=== PATIENT | female | born 1945 | race Caucasian/White ===

== ENCOUNTER 2020-03-14 18:26 | Emergency (ER) | payer MEDICARE, MEDICAID ==
[~2020-03-14] VITALS: Ht 157.4 cm; Wt 90.0 kg
[~2020-03-14 18:26] MED LIST: AMLO5TAB2 PO; ASPI-933 PO; CITA20TA4 PO; FISH1CAP15 PO; FURO40TA4 PO; LISI20TA PO; METO25TA2 PO; NAPR-243 PO; NIA500ERT PO; POTA20PA3 PO; PRAV80TA PO; TRAM50TA2 PO
[2020-03-14] MEDS ORDERED: NS IV 1000 ML 1,000 ML IV SCH (19:00)
--- NOTE | 2020-03-14 19:00 | NUR ---
Patient reports to RN and she has not taken her prescribed meds in like 7 yrs. "Don't need them!"
[2020-03-14 19:10] LABS: BASOPHILS # (AUTO) 0.1 10^3/uL (0.0-0.1); BASOPHILS % (AUTO) 0 % (0-10); EOSINOPHILS # (AUTO) 0.1 10^3/uL (0.0-0.3); EOSINOPHILS % (AUTO) 1 % (0-10); HEMATOCRIT 42 % (35-52); HEMOGLOBIN 13.5 G/DL (11.5-16.0); LYMPHOCYTES # (AUTO) 2.1 X 10^3 (1.0-4.0); LYMPHOCYTES % (AUTO) 16 % (12-44); MEAN CORPUSCULAR HEMOGLOBIN 28 PG (25-34); MEAN CORPUSCULAR HGB CONC 33 G/DL (32-36); MEAN CORPUSCULAR VOLUME 88 FL (80-99); MEAN PLATELET VOLUME 11.3 FL (7.4-10.4); MONOCYTES # (AUTO) 0.9 X 10^3 (0.0-1.0); MONOCYTES % (AUTO) 7 % (0-12); NEUTROPHILS # (AUTO) 9.3 X 10^3 (1.8-7.8); NEUTROPHILS % (AUTO) 74 % (42-75); PLATELET COUNT 427 10^3/uL (130-400); RED CELL DISTRIBUTION WIDTH 13.2 % (10.0-14.5); WHITE BLOOD COUNT 12.5 10^3/uL (4.3-11.0)
[2020-03-14 19:23] LABS: CARBON DIOXIDE 26 MMOL/L (21-32); CHLORIDE 95 MMOL/L (98-107); POTASSIUM 3.7 MMOL/L (3.6-5.0); SODIUM 134 MMOL/L (135-145)
[2020-03-14 19:24] LABS: ALANINE AMINOTRANSFERASE 10 U/L (0-55); ALBUMIN 3.5 GM/DL (3.2-4.5); ALKALINE PHOSPHATASE 127 U/L (40-136); BILIRUBIN,TOTAL 0.3 MG/DL (0.1-1.0); BUN/CREATININE RATIO 12; CALCIUM 9.2 MG/DL (8.5-10.1); CREATININE SERUM 0.65 MG/DL (0.60-1.30); GFR ESTIMATED > 60; GLUCOSE 123 MG/DL (70-105); LIPASE 13 U/L (8-78); TOTAL PROTEIN 7.3 GM/DL (6.4-8.2)
[2020-03-14 19:52] LABS: BACTERIA,URINE FEW /HPF; BILIRUBIN,URINE 1+ (NEGATIVE); CLARITY,URINE SL CLOUDY; COLOR,URINE YELLOW; GLUCOSE, URINE (UA) NEGATIVE (NEGATIVE); KETONES,URINE NEGATIVE (NEGATIVE); LEUKOCYTE ESTERASE ,URINE 1+ (NEGATIVE); NITRITE,URINE NEGATIVE (NEGATIVE); PROTEIN,URINE NEGATIVE (NEGATIVE); RBC,URINE 0-2 /HPF
[2020-03-14] MEDS ORDERED: HYOS0.1283 SL (20:02)
[2020-03-14] MEDS ORDERED: ONDA4TAB11 PO (20:02)
--- NOTE | 2020-03-14 20:03 | ED GI ---
General Chief Complaint: Abdominal/GI Problems Stated Complaint: ABD PAIN,DIARRHEA Nursing Triage Note: Pt presents to ED ambulatory reporting 3 week hx of abd pain with diarrhea that has not been evaluated yet r/t to her loss of a daughter. Pt states with trying to eat it makes dry heaves. Pt has increased belching and flatus. Call to her provider at 1600 today and advised to go to ER she states. Sepsis Screen: No Definite Risk Source of Information: Patient Exam Limitations: No Limitations History of Present Illness Date Seen by Provider: Mar 14, 2020 Time Seen by Provider: 18:40 Initial Comments Patient presents with intermittent abdominal cramping and loose stool daily for the past 3 weeks. States that her daughter this summer. Poor appetite intermittent nausea and dry heaves. Has not seen her PCP, but called at the end of the day and was advised to come to the ER. Denies weight loss. Also admits that she has not taken any of her medications for 7 years. Allergies and Home Medications Allergies Coded Allergies: No Known Drug Allergies (Verified Allergy, Unknown, 12/22/07) Home Medications Amlodipine Besylate 5 Mg Tablet, 5 MG PO DAILY, (Reported) Aspirin 81 Mg Tablet.dr, 81 MG PO DAILY, (Reported) Citalopram Hydrobromide 20 Mg Tablet, 20 MG PO DAILY, (Reported) Fish Oil/Dha/Epa 1 Each Capsule, 1 EACH PO BID, (Reported) Furosemide 40 Mg Tablet, 1 EACH PO MON-TUE-TUE PRN, (Reported) Hyoscyamine Sulfate 0.125 Mg Tab.subl, 0.125 MG SL Q4H Prescribed by: ALYSSA HUYNH on 03/14/202001 Lisinopril 20 Mg Tablet, 20 MG PO DAILY, (Reported) Metoprolol Tartrate 25 Mg Tablet, 1 TAB PO BID, (Reported) Naproxen 500 Mg Tablet, 1 EACH PO BID, (Reported) Niacin 500 Mg Tablet.sa, 1,500 MG PO DAILY, (Reported) 3 CAPS DAILY Ondansetron 4 Mg Tab.rapdis, 4 MG PO Q6H PRN for NAUSEA/VOMITING Prescribed by: ALYSSA HUYNH on 03/14/202001 Potassium Chloride 20 Meq Packet, 20 MEQ PO MON-TUE-TUE PRN, (Reported) Pravastatin Sodium 80 Mg Tablet, 80 MG PO DAILY, (Reported) Tramadol Hcl 50 Mg Tablet, 50 MG PO DAILY PRN, (Reported) Patient Home Medication List Home Medication List Reviewed: Yes Review of Systems Review of Systems Constitutional: No dizziness, No fever; malaise; No weakness Respiratory: Denies Cough, Denies Shortness of Air Cardiovascular: Denies Chest Pain, Denies Edema, Denies Syncope Gastrointestinal: See HPI, Abdominal Pain; Denies Constipated; Diarrhea (1 x per day), Nausea; Denies Poor Fluid Intake; Vomiting (dry heaves only) Genitourinary: Denies Burning, Denies Discharge, Denies Frequency, Denies Flank Pain, Denies Hematuria, Denies Pain, Denies Urgency Musculoskeletal: No back pain, No joint pain Psychiatric/Neurological: Denies Anxiety; Depressed; Denies Emotional Problems; Other (greief and sadness since her daughter ) Past Aabmxhv-Ntxchb-Orkwym Hx Past Med/Social Hx: Reviewed Nursing Past Med/Soc Hx Patient Social History Alcohol Use: Denies Use Recreational Drug Use: No Smoking Status: Never a Smoker Recent Foreign Travel: No Contact w/Someone Who Travel: No Recent Infectious Disease Expo: No Recent Hopitalizations: No Physical Abuse: No Sexual Abuse: No Mistreated: No Fear: No Seasonal Allergies Seasonal Allergies: No Past Medical History Surgeries: Yes (each knee arthroscopy, L total shoulder replacement) CABG, Orthopedic Respiratory: Yes Asthma Cardiac: Yes (pt stopped all meds 7 yrs ago) Coronary Artery Disease, Heart Attack, Hypertension Neurological: No Reproductive Disorders: Yes Sexually Transmitted Disease: No Genitourinary: No Gastrointestinal: No Musculoskeletal: Yes Arthritis Endocrine: No HEENT: No Cancer: Yes Kidney Did You Recieve Any Treatments: Yes What Type of Treatment Did You: Surgical Intervention "kidney cancer froze off" Psychosocial: No Blood Disorders: No Physical Exam Vital Signs Vital Signs - First Documented 03/14/20 18:35 Temp 36.7 Pulse 101 Resp 21 B/P (MAP) 176/87 (116) Pulse Ox 93 O2 Delivery Room Air Capillary Refill : Less Than 3 Seconds Height/Weight/BMI Height: 5'3.00" Weight: 211lbs. 0.0oz. 95.368251xl; 36.00 BMI Method: General Appearance: WD/WN, no apparent distress Respiratory: chest non-tender, lungs clear Cardiovascular: regular rate, rhythm, no edema, no gallop, no JVD Gastrointestinal: non tender, soft, no pulsatile mass; No distended, No guarding, No rebound; tenderness (mild and diffuse); No hernia, No mass Extremities: non-tender, no pedal edema Neurologic/Psychiatric: no motor/sensory deficits, alert, normal mood/affect Skin: normal color, warm/dry Progress/Results/Core Measures Results/Orders Lab Results Laboratory Tests Test 03/14/20 18:40 03/14/20 19:41 Range/Units White Blood Count 12.5 H 4.3-11.0 10^3/uL Red Blood Count 4.74 4.35-5.85 10^6/uL Hemoglobin 13.5 11.5-16.0 G/DL Hematocrit 42 35-52 % Mean Corpuscular Volume 88 80-99 FL Mean Corpuscular Hemoglobin 28 25-34 PG Mean Corpuscular Hemoglobin Concent 33 32-36 G/DL Red Cell Distribution Width 13.2 10.0-14.5 % Platelet Count 427 H 130-400 10^3/uL Mean Platelet Volume 11.3 H 7.4-10.4 FL Neutrophils (%) (Auto) 74 42-75 % Lymphocytes (%) (Auto) 16 12-44 % Monocytes (%) (Auto) 7 0-12 % Eosinophils (%) (Auto) 1 0-10 % Basophils (%) (Auto) 0 0-10 % Neutrophils # (Auto) 9.3 H 1.8-7.8 X 10^3 Lymphocytes # (Auto) 2.1 1.0-4.0 X 10^3 Monocytes # (Auto) 0.9 0.0-1.0 X 10^3 Eosinophils # (Auto) 0.1 0.0-0.3 10^3/uL Basophils # (Auto) 0.1 0.0-0.1 10^3/uL Sodium Level 134 L 135-145 MMOL/L Potassium Level 3.7 3.6-5.0 MMOL/L Chloride Level 95 L 98-107 MMOL/L Carbon Dioxide Level 26 21-32 MMOL/L Anion Gap 13 5-14 MMOL/L Blood Urea Nitrogen 8 7-18 MG/DL Creatinine 0.65 0.60-1.30 MG/DL Estimat Glomerular Filtration Rate > 60 BUN/Creatinine Ratio 12 Glucose Level 123 H 70-105 MG/DL Calcium Level 9.2 8.5-10.1 MG/DL Corrected Calcium 9.6 8.5-10.1 MG/DL Total Bilirubin 0.3 0.1-1.0 MG/DL Aspartate Amino Transf (AST/SGOT) 13 5-34 U/L Alanine Aminotransferase (ALT/SGPT) 10 0-55 U/L Alkaline Phosphatase 127 40-136 U/L Total Protein 7.3 6.4-8.2 GM/DL Albumin 3.5 3.2-4.5 GM/DL Lipase 13 8-78 U/L Urine Color YELLOW Urine Clarity SL CLOUDY Urine pH 6.0 5-9 Urine Specific [place] >1.030 1.016-1.022 Urine Protein NEGATIVE NEGATIVE Urine Glucose (UA) NEGATIVE NEGATIVE Urine Ketones NEGATIVE NEGATIVE Urine Nitrite NEGATIVE NEGATIVE Urine Bilirubin 1+ H NEGATIVE Urine Urobilinogen 1.0 < = 1.0 MG/DL Urine Leukocyte Esterase 1+ H NEGATIVE Urine RBC (Auto) TRACE H NEGATIVE Urine RBC 0-2 /HPF Urine WBC 10-25 H /HPF Urine Squamous Epithelial Cells 10-25 H /HPF Urine Crystals NONE /LPF Urine Bacteria FEW H /HPF Urine Casts NONE /LPF Urine Mucus MODERATE H /LPF Urine Culture Indicated YES My Orders Orders - ROVENSTINEALYSSA L DO Ed Iv/Invasive Line Start (03/14/20 19:00) Cbc With Automated Diff (03/14/20 19:00) Comprehensive Metabolic Panel (03/14/20 19:00) Lipase (03/14/20 19:00) Urinalysis (03/14/20 19:00) Abdomen Flat & Upright/Decub (03/14/20 19:00) Ns Iv 1000 Ml (Sodium Chloride 0.9%) (03/14/20 19:00) Urine Culture (03/14/20 19:41) Vital Signs/I&O 03/14/20 18:35 Temp 36.7 Pulse 101 Resp 21 B/P (MAP) 176/87 (116) Pulse Ox 93 O2 Delivery Room Air Blood Pressure Mean: 116 Diagnostic Imaging Diagonstic Imaging: Xray Plain Films/CT/US/NM/MRI: abdomen Comments INDICATION: Diarrhea, three weeks history. Pain. EXAMINATION: Abdomen. FINDINGS: The bowel gas pattern is unremarkable. There is prominence of the right hepatic lobe extending below the iliac crest. This may be hepatomegaly or a prominent Arvind's lobe. There is no abnormal fecal loading. No pneumatosis or free air identified. IMPRESSION: Prominence of the right hepatic lobe. Unobstructed and nonacute appearing bowel gas pattern. Dictated on workstation # [id number] Dict: 03/14/201956 Trans: 03/14/202001 PJE [id number] Interpreted by: MOLLY MARION Electronically signed by: Departure Impression Primary Impression: Abdominal pain Qualified Codes: R10.84 - Generalized abdominal pain Additional Impression: Nausea alone Disposition: HOME, SELF-CARE Condition: Stable Departure-Patient Inst. Decision time for Depature: 20:01 Referrals: DREA MEDINA MD (PCP) Primary Care Physician Patient Instructions: Nausea and Vomiting, Adult (DC), Stomach Ache and Stomach Upset Add. Discharge Instructions: Follow up with your Primary Doctor in 1 week for re-evaluation. You may want to consider grief counseling for your loss. All discharge instructions reviewed with patient and/or family. Voiced und erstanding. Scripts Ondansetron (Ondansetron Odt) 4 Mg Tab.rapdis 4 MG PO Q6H PRN for NAUSEA/VOMITING, #8 TAB 0 Refills Prov: ELIJAHVENSTALYSSA ELENA DO 03/14/20 Hyoscyamine Sulfate (Levsin-Sl) 0.125 Mg Tab.subl 0.125 MG SL Q4H, #10 TAB 0 Refills Prov: ALYSSA HUYNH DO 03/14/20 ALYSSA HUYNH DO Mar 14, 2020 20:03
[2020-03-14 20:11] VITALS: BP 159/51
== END 2020-03-14 20:11 | disposition home or self-care (01) ==
LOC: EDUNIT# 18:26 → ER FS 18:27
DX: R10.84 Generalized abdominal pain (principal); R11.0 Nausea; I10 Essential (primary) hypertension; I25.10 Atherosclerotic heart disease of native coronary artery without angina pectoris; Z95.1 Presence of aortocoronary bypass graft; Z85.528 Personal history of other malignant neoplasm of kidney; Z79.82 Long term (current) use of aspirin
CPT/HCPCS: 36415; 74019; 80053; 81000; 83690; 85025; 87088

== ENCOUNTER 2021-12-28 12:53 | Inpatient (IN) | payer MEDICARE, MEDICAID ==
[~2021-12-28] VITALS: Ht 160 cm; Wt 95.7 kg
[~2021-12-28 12:53] MED LIST changes: +HYOS0.1283 SL; +ONDA4TAB11 PO
--- NOTE | 2021-12-28 12:56 | ED General ---
General Stated Complaint: GENERAL WEAKNESS History of Present Illness Date Seen by Provider: Dec 28, 2021 Time Seen by Provider: 12:56 Initial Comments Is a 76-year-old female with a past medical history of renal cancer with past renal surgeries / COPD/ CAD with history of SC and stents in 2008, is brought in by EMS with complaints of generalized weakness, fever and chills, shortness of breath, lethargy, loss of appetite for the past 2 or 3 weeks and has been worsening. Patient is on 4 L of oxygen at home as needed. As per family patient has lost approximately 200 pounds in the past 2 months. Patient has lack of appetite and has not been able to tolerate food or liquids in the past couple of weeks. Denies chest pain, neurological deficits, dysuria, hematuria. Allergies and Home Medications Allergies Coded Allergies: No Known Drug Allergies (Verified Allergy, Unknown, 12/22/07) Patient Home Medication List Home Medication List Reviewed: Yes Amlodipine Besylate (Amlodipine Besylate) 5 Mg Tablet, 5 MG PO DAILY, (Reported) Entered as Reported by: CASEY MOORE on 06/22/111339 Aspirin (Ecotrin) 81 Mg Tablet.dr, 81 MG PO DAILY, (Reported) Entered as Reported by: CASEY MOORE on 06/22/11 134 Citalopram Hydrobromide (Citalopram Hbr) 20 Mg Tablet, 20 MG PO DAILY, (Reported) Entered as Reported by: CASEY MOORE on 06/22/11 134 Fish Oil/Dha/Epa (Fish Oil 1,200 Mg Fish Oil) 1 Each Capsule, 1 EACH PO BID, (Reported) Entered as Reported by: CASEY MOORE on 06/22/11 134 Furosemide (Furosemide) 40 Mg Tablet, 1 EACH PO MON-WED-TUE PRN, (Reported) Entered as Reported by: CASEY MOORE on 06/22/11 134 Hyoscyamine Sulfate (Levsin-Sl) 0.125 Mg Tab.subl, 0.125 MG SL Q4H Prescribed by: ALYSSA HUYNH on 03/14/202001 Lisinopril (Prinivil) 20 Mg Tablet, 20 MG PO DAILY, (Reported) Entered as Reported by: CASEY MOORE on 121339 Metoprolol Tartrate (Metoprolol Tartrate 25 Mg) 25 Mg Tablet, 1 TAB PO BID, (Reported) Entered as Reported by: CASEY MOORE on 06/22/111339 Naproxen (Naprosyn) 500 Mg Tablet, 1 EACH PO BID, (Reported) Entered as Reported by: CASEY MOORE on 06/22/111339 Niacin (Niaspan) 500 Mg Tablet.sa, 1,500 MG PO DAILY, (Reported) Entered as Reported by: CASEY MOORE on 06/22/111339 Ondansetron (Ondansetron Odt) 4 Mg Tab.rapdis, 4 MG PO Q6H PRN for NAUSEA/VOMITING Prescribed by: ALYSSA HUYNH on 03/14/202001 Potassium Chloride (Potassium Chloride) 20 Meq Packet, 20 MEQ PO MON-WED-TUE PRN, (Reported) Entered as Reported by: CASEY MOORE on 06/22/111339 Pravastatin Sodium (Pravachol) 80 Mg Tablet, 80 MG PO DAILY, (Reported) Entered as Reported by: CASEY MOORE on 06/22/111339 Tramadol Hcl (Tramadol Hcl) 50 Mg Tablet, 50 MG PO DAILY PRN, (Reported) Entered as Reported by: CASEY MOORE on 06/22/111339 Review of Systems Review of Systems Constitutional: chills, fever, malaise, weight loss EENTM: no symptoms reported Respiratory: dyspnea on exertion, orthopnea, short of breath Cardiovascular: no symptoms reported Gastrointestinal: loss of appetite Genitourinary: no symptoms reported Musculoskeletal: no symptoms reported Skin: no symptoms reported Psychiatric/Neurological: No Symptoms Reported Hematologic/Lymphatic: No Symptoms Reported Immunological/Allergic: no symptoms reported Past Pomkfyx-Qmtora-Aiulys Hx Seasonal Allergies Seasonal Allergies: No Past Medical History Surgeries: Yes (each knee arthroscopy, L total shoulder replacement) CABG, Orthopedic Respiratory: Yes Asthma Cardiac: Yes (pt stopped all meds 7 yrs ago) Coronary Artery Disease, Heart Attack, Hypertension Neurological: No Reproductive Disorders: Yes Sexually Transmitted Disease: No Genitourinary: No Gastrointestinal: No Musculoskeletal: Yes Arthritis Endocrine: No HEENT: No Cancer: Yes Kidney Did You Recieve Any Treatments: Yes What Type of Treatment Did You: Surgical Intervention Psychosocial: No Blood Disorders: No Physical Exam Vital Signs Vital Signs - First Documented 12/28/21 12/28/21 13:58 16:54 Temp 38.7 Pulse 125 Resp 22 B/P (MAP) 112/60 (77) Pulse Ox 97 Capillary Refill : Height, Weight, BMI Height: 5'3.00" Weight: 211lbs. 0.0oz. 95.529512er; 36.00 BMI Method: General Appearance: Mild Distress HEENT: PERRL/EOMI, Pharynx Normal Neck: Full Range of Motion, Normal Inspection, Non Tender, Supple Respiratory: Lungs Clear, No Accessory Muscle Use, Rhonci (mild), Wheezing (Very mild occasional wheezing initially, prior to giving neb treatments) Cardiovascular: Regular Rate, Rhythm, No Edema, Normal Peripheral Pulses Gastrointestinal: Normal Bowel Sounds, Soft, Distended, Mass (Periumbilical mass approximately 7 x 10 cm and feels soft to firm in consistency and is tender to palpation.), Tenderness (stalin-umbilical and in LLQ) Back: Normal Inspection, No CVA Tenderness, No Vertebral Tenderness Extremity: Normal Range of Motion Neurologic/Psychiatric: Alert, Oriented x3, No Motor/Sensory Deficits, Normal Mood/Affect Skin: Pallor Lymphatic: No Adenopathy Focused Exam Lactate Level 12/28/21 12:57: Lactic Acid Level 4.32*H 12/28/21 15:24: Lactic Acid Level 1.49 Lactic Acid Level Laboratory Tests Test 12/28/21 12:57 12/28/21 15:24 Lactic Acid Level 4.32 MMOL/L (0.50-2.00) *H 1.49 MMOL/L (0.50-2.00) Progress/Results/Core Measures Suspected Sepsis SIRS Temperature: Pulse: Respiratory Rate: Laboratory Tests 12/28/21 12:57: White Blood Count 19.9H Blood Pressure / Mean: 12/28/21 12:57: Lactic Acid Level 4.32*H 12/28/21 15:24: Lactic Acid Level 1.49 Laboratory Tests 12/28/21 12:57: Creatinine 0.84, INR Comment 1.1, Platelet Count 492H, Total Bilirubin 0.4 Results/Orders Lab Results Laboratory Tests Test 12/28/21 12:56 12/28/21 12:57 12/28/21 13:20 12/28/21 15:24 Range/Units Pro-B-Type Natriuretic Peptide 1433.0 H <75.0 PG/ML White Blood Count 19.9 H 4.3-11.0 10^3/uL Red Blood Count 4.04 3.80-5.11 10^6/uL Hemoglobin 11.4 L 11.5-16.0 g/dL Hematocrit 35 35-52 % Mean Corpuscular Volume 87 80-99 fL Mean Corpuscular Hemoglobin 28 25-34 pg Mean Corpuscular Hemoglobin Concent 33 32-36 g/dL Red Cell Distribution Width 13.7 10.0-14.5 % Platelet Count 492 H 130-400 10^3/uL Mean Platelet Volume 9.9 9.0-12.2 fL Immature Granulocyte % (Auto) 1 % Neutrophils (%) (Auto) 92 H 42-75 % Lymphocytes (%) (Auto) 3 L 12-44 % Monocytes (%) (Auto) 4 0-12 % Eosinophils (%) (Auto) 0 0-10 % Basophils (%) (Auto) 0 0-10 % Neutrophils # (Auto) 18.2 H 1.8-7.8 10^3/uL Lymphocytes # (Auto) 0.6 L 1.0-4.0 10^3/uL Monocytes # (Auto) 0.8 0.0-1.0 10^3/uL Eosinophils # (Auto) 0.0 0.0-0.3 10^3/uL Basophils # (Auto) 0.0 0.0-0.1 10^3/uL Immature Granulocyte # (Auto) 0.2 H 0.0-0.1 10^3/uL Neutrophils % (Manual) 66 % Lymphocytes % (Manual) 3 % Monocytes % (Manual) 3 % Eosinophils % (Manual) 0 % Basophils % (Manual) 0 % Band Neutrophils 28 % Platelet Estimate INCREASED Hypochromasia 1+ Microcytosis 1+ Prothrombin Time 14.6 12.2-14.7 SEC INR Comment 1.1 0.8-1.4 Activated Partial Thromboplast Time 38 H 24-35 SEC D-Dimer 2.76 H 0.00-0.49 UG/ML Sodium Level 136 135-145 MMOL/L Potassium Level 3.6 3.6-5.0 MMOL/L Chloride Level 97 L 98-107 MMOL/L Carbon Dioxide Level 25 21-32 MMOL/L Anion Gap 14 5-14 MMOL/L Blood Urea Nitrogen 9 7-18 MG/DL Creatinine 0.84 0.60-1.30 MG/DL Estimat Glomerular Filtration Rate 72 BUN/Creatinine Ratio 11 Glucose Level 119 H 70-105 MG/DL Lactic Acid Level 4.32 *H 1.49 0.50-2.00 MMOL/L Calcium Level 8.0 L 8.5-10.1 MG/DL Corrected Calcium 9.4 8.5-10.1 MG/DL Magnesium Level 1.4 L 1.6-2.4 MG/DL Total Bilirubin 0.4 0.1-1.0 MG/DL Aspartate Amino Transf (AST/SGOT) 13 5-34 U/L Alanine Aminotransferase (ALT/SGPT) 6 0-55 U/L Alkaline Phosphatase 155 H 40-136 U/L Troponin I 0.80 *H <0.30 NG/ML Total Protein 6.0 L 6.4-8.2 GM/DL Albumin 2.2 L 3.2-4.5 GM/DL Serum Alcohol < 10 <10 MG/DL Influenza Type A Antigen NEGATIVE NEGATIVE Influenza Type B Antigen NEGATIVE NEGATIVE SARS-CoV-2 RNA (RT-PCR) Not Detected Not Detecte Test 12/28/21 16:01 Range/Units Troponin I 1.21 *H <0.30 NG/ML My Orders Orders - MICHELLE HOLMAN MD Alcohol (12/28/21 13:01) Cbc With Automated Diff (12/28/21 13:01) Comprehensive Metabolic Panel (12/28/21 13:01) Fibrin Degradation Products (12/28/21 13:01) Drug Screen Stat (Urine) (12/28/21 13:01) Lactic Acid Analyzer (12/28/21 13:01) Magnesium (12/28/21 13:01) Protime With Inr (12/28/21 13:01) Partial Thromboplastin Time (12/28/21 13:01) Troponin I Fs (12/28/21 13:01) Covid 19 Inhouse Test (12/28/21 13:01) Isolation Central Supply Req (12/28/21 13:01) Chest 1 View Ap/Pa Only (12/28/21 13:01) Blood Culture (12/28/21 13:01) Methylprednisolone Sod Succ (Solu-Medrol (12/28/21 13:04) Albuterol/Ipra Inhalation Soln (Duoneb I (12/28/21 13:15) Svn Small Volume Nebulizer (12/28/21 13:04) Ed Iv/Invasive Line Start (12/28/21 13:05) Ns Iv 1000 Ml (Sodium Chloride 0.9%) (12/28/21 13:05) Probnp Fs (12/28/21 13:12) Influenza A & B Antigens (12/28/21 13:24) Manual Differential (12/28/21 12:57) Acetaminophen Tablet/Caplet (Tylenol T (12/28/21 13:54) Piperacillin Sodium/Tazobactam (Zosyn Vi (12/28/21 14:00) Vancomycin Injection (Vancomycin Injecti (12/28/21 14:00) Ct Sidra Chest/Noang Abd-Pelv W (12/28/21 13:59) Iohexol Injection (Omnipaque 350 Mg/Ml 1 (12/28/21 14:30) Received Contrast (Hold Metformin- Contr (12/28/21 14:30) Sodium Chloride Flush (Catheter Flush Sy (12/28/21 14:30) Ns (Ivpb) (Sodium Chloride 0.9% Ivpb Bag (12/28/21 14:30) Ekg Tracing (12/28/21 14:37) Aspirin Chewable Tablet (Baby Aspirin Ch (12/28/21 14:45) Magnesium 2 Gm/50 Ml Ivpb (Magnesium 2 G (12/28/21 14:38) Troponin I Fs (12/28/21 15:53) Ekg Tracing (12/28/21 15:53) Aspirin Chewable Tablet (Baby Aspirin Ch (12/28/21 17:15) Ed Admission (Communication) (12/28/21 17:09) Medications Given in ED Current Medications Medications Dose Ordered Sig/Adrian Route Start Time Stop Time Status Last Admin Dose Admin Albuterol/ Ipratropium 3 ml ONCE ONCE INH 12/28/21 13:15 12/28/21 13:16 DC 12/28/21 13:49 3 ML Aspirin 324 mg ONCE ONCE PO 12/28/21 14:45 12/28/21 14:46 DC 12/28/21 17:56 324 MG Iohexol 100 ml ONCE ONCE IV 12/28/21 14:30 12/28/21 14:31 DC 12/28/21 14:41 100 ML Piperacillin Sod/ Tazobactam Sod 4.5 gm/Sodium Chloride 100 ml @ 200 mls/hr ONCE ONCE IV 12/28/21 14:00 12/28/21 14:29 DC 12/28/21 14:13 200 MLS/HR Sodium Chloride 10 ml NEEDED PRN IV 12/28/21 14:30 12/28/21 14:41 10 ML Sodium Chloride 100 ml ONCE ONCE IV 12/28/21 14:30 12/28/21 14:31 DC 12/28/21 14:41 80 ML Vancomycin HCl 1000 mg/Sodium Chloride 250 ml @ 250 mls/hr ONCE ONCE IV 12/28/21 14:00 12/28/21 14:59 DC 12/28/21 15:11 250 MLS/HR Vital Signs/I&O 12/28/21 12/28/21 12/28/21 13:58 16:54 17:56 Temp 38.7 38.5 35.6 Pulse 125 85 Resp 22 20 B/P (MAP) 112/60 (77) 104/68 Pulse Ox 97 97 Capillary Refill : Progress Note : Progress Note 1. GENERALIZED WEAKNESS & SEPSIS DUE TO IBD with ABDOMINAL ABSCESS - CXR: unremarkable -DuoNebs and Solu-Medrol 125 mg IV given due to initial hypoxia and patient came in. Patient stabilized with 3 to 4 L of oxygen via nasal cannula in the ER. - CT ABD: No pulmonary embolism. Irregular soft tissue, fat and fluid lesion left kidney with calcifications. Renal protocol CT recommended as this is concerning for renal cell carcinoma. Long segment active inflammation of the mid ileum with a focal interloop abscess containing gas and fluid measuring 2.5 x 1.2 cm. Findings concerning for inflammatory bowel disease. - CBC: WBC is elevated at 19.9 with a left shift - Blood cultures sent - Lactic acid is 4.32, and later improved to 1.49 - NS IVF boluses x 2 - Vanc and Zosyn started iv STAT -Will admit for surgery consult and telemetry monitoring. Discussed with Dr. Correa, and accepted for admission to stepdown unit. 2. HYPOMAGNESEMIA: - s. Mg is 1.4 - Magnesium 2gm iv ordered, but [facility]on does not have this available, so will need to replete Magnesium once pt reaches AV in [place] 3. ELEVATED D-DIMER: - D-dimer is 2.76 - CTA CHEST: no PE 4. ELEVATED TROPONIN: -First troponin was 0.80 and second troponin was 1.21, and is likely due to demand ischemia from initial hypoxia and ongoing sepsis - EKG is is not showing any acute ischemic changes, and not experiencing any chest pain. -Discussed with manufacturing engineering manager, patient was given aspirin 324 mg Diagnostic Imaging Diagonstic Imaging: Xray Plain Films/CT/US/NM/MRI: chest Comments [facility]. [place], [place] NAME: KESHIA BOLES [facility] REC#: [id number] PT STATUS: REG ER : 1945 PHYSICIAN: MICHELLE HOLMAN MD ADMIT DATE: 12/28/21/ER FS Draft Date of Exam:12/28/21 CT SIDRA CHEST/NOANG ABD-PELV W EXAMINATION: CT angiography chest with and without, CT abdomen and pelvis with and without. TECHNIQUE: Noncontrast enhanced helical images were obtained through the chest, abdomen and pelvis. Contrast enhanced thin section helical images were obtained through the chest, abdomen and pelvis with intravenous contrast timed for the optimal opacification of the arterial structures per departmental CTA protocol. Post-processing, retro reconstructions and interpretation of angiographic images of the vessels was performed. 3D MIP reconstructions were performed and reviewed. All CT scans use one or more of the following dose optimizing techniques: automated exposure control, MA and/or KvP adjustment based on patient size and exam type or iterative reconstruction. HISTORY: Elevated D-dimer, abdominal mass COMPARISON: None available. FINDINGS: There is no pulmonary embolism. There is no edema or pneumonia. No pleural effusion. No pneumothorax. No suspicious nodules. Lungs are severely emphysematous. There is no axillary or supraclavicular lymphadenopathy. There is no mediastinal lymphadenopathy. Heart size is normal. There are moderate coronary artery calcifications. No pericardial effusion. Aorta is normal in caliber. There has been coronary artery bypass grafting. The liver is normal without focal lesion. There is no biliary ductal dilation. Gallbladder is normal. Pancreas is normal. Spleen is normal. Adrenal glands are normal. There is a simple cyst in the right kidney. There is an irregular soft tissue, cystic and calcified lesion in the left kidney measuring 2.5 x 3.8 cm. The internal areas of fat. There is no hydronephrosis. Urinary bladder is normal. Endometrium is mildly thickened. There is a long segment of active inflammation of the mid ileum. There is an interloop abscess measuring 2.5 x 1.2 cm (series 21, image 33). There are few locules of gas within the interloop abscess. There are enlarged mesenteric lymph nodes measuring up to 1.3 cm. Small amount of free fluid is present in the pelvis. Aorta is normal in caliber without aneurysm. There are no suspicious osseus lesions. IMPRESSION: 1. No pulmonary embolism. 2. Irregular soft tissue, fat and fluid lesion left kidney with calcifications. Renal protocol CT recommended as this is concerning for renal cell carcinoma. 3. Long segment active inflammation of the mid ileum with a focal interloop abscess containing gas and fluid measuring 2.5 x 1.2 cm. Findings concerning for inflammatory bowel disease. 4. Mildly thickened endometrium, followup pelvic sonogram recommended. Dictated on workstation # [id number] Dict: 12/28/21 1456 Trans: 12/28/21 1510 [facility] [id number] Interpreted by: KELL CARRERA MD Electronically signed by: [facility], [place] NAME: KESHIA BOLES [facility] REC#: [id number] PT STATUS: REG ER : 1945 PHYSICIAN: MICHELLE HOLMAN MD ADMIT DATE: 12/28/21/ER FS Draft Date of Exam:12/28/21 CHEST 1 VIEW AP/PA ONLY INDICATION: Shortness of air and cough. TIME OF EXAM: 1:10 PM. COMPARISON: No prior studies are available for comparison. FINDINGS: Changes of median sternotomy and CABG are noted. The lungs appear clear of acute infiltrates. No effusion or pneumothorax is detected. There are postop changes to the left shoulder. IMPRESSION: No acute cardiopulmonary process is detected. Dictated on workstation # [id number] Dict: 12/28/21 1316 Trans: 12/28/21 1318 [id number] Interpreted by: LUPILLO RAMIREZ MD Electronically signed by: Departure Communication (Admissions) Time/Spoke to Admitting Phy: 17:[address] Mckeon Time/Spoke to Consulting Phy: 18:00 Cardiology, Dr Bansal. Give ASA Impression Primary Impression: Sepsis Qualified Codes: A41.9 - Sepsis, unspecified organism Additional Impressions: Generalized weakness Abdominal abscess Hypomagnesemia Elevated d-dimer Demand ischemia Elevated troponin Disposition: 30 STILL A PATIENT Condition: Stable Admissions Decision to Admit Reason: Admit from ER (General) Decision to Admit/Date: Dec 28, 2021 Time/Decision to Admit Time: 15:00 Transfer Transfer Reason: Exceeds level of care Time Spoke to Accepting Phy: 17:05 Transfer Progress Notes Discussed with Dr Mckeon, and pt to be admitted to step down unit. Requested Cardiology consult and surgery consult Transfer Facility: [facility] Method of Transfer: EMS Departure-Patient Inst. Referrals: DREA MEDINA MD (PCP) Primary Care Physician MICHELLE HOLMAN MD Dec 28, 2021 12:56
[2021-12-28] MEDS ORDERED: methylPREDNISolone 125 MG (Solu-MEDROL) VIAL IV STA (13:04)
[2021-12-28] MEDS ORDERED: NS IV 1000 ML 1,000 ML IV STA (13:05)
[2021-12-28 13:09] LABS: BASOPHILS % (AUTO) 0 % (0-10); EOSINOPHILS % (AUTO) 0 % (0-10); HEMATOCRIT 35 % (35-52); HEMOGLOBIN 11.4 g/dL (11.5-16.0); LYMPHOCYTES # (AUTO) 0.6 10^3/uL (1.0-4.0); LYMPHOCYTES % (AUTO) 3 % (12-44); MEAN CORPUSCULAR HEMOGLOBIN 28 pg (25-34); MEAN CORPUSCULAR HGB CONC 33 g/dL (32-36); MEAN CORPUSCULAR VOLUME 87 fL (80-99); MEAN PLATELET VOLUME 9.9 fL (9.0-12.2); MONOCYTES # (AUTO) 0.8 10^3/uL (0.0-1.0); MONOCYTES % (AUTO) 4 % (0-12); NEUTROPHILS # (AUTO) 18.2 10^3/uL (1.8-7.8); NEUTROPHILS % (AUTO) 92 % (42-75); PLATELET COUNT 492 10^3/uL (130-400); WHITE BLOOD COUNT 19.9 10^3/uL (4.3-11.0)
[2021-12-28] MEDS ORDERED: RT-ALBUTEROL/IPRATROPIUM 3 ML (DUONEB) VIAL INH ONE (13:15)
--- NOTE | 2021-12-28 13:19 | Diagnostic Imaging Report ---
INDICATION: Shortness of air and cough. TIME OF EXAM: 1:10 PM. COMPARISON: No prior studies are available for comparison. FINDINGS: Changes of median sternotomy and CABG are noted. The lungs appear clear of acute infiltrates. No effusion or pneumothorax is detected. There are postop changes to the left shoulder. IMPRESSION: No acute cardiopulmonary process is detected. Dictated by: Dictated on workstation # [id number]
[2021-12-28 13:47] LABS: FIBRIN DEGRADATION PRODUCTS 2.76 UG/ML (0.00-0.49); INR 1.1 (0.8-1.4); PROTHROMBIN TIME PATIENT 14.6 SEC (12.2-14.7)
[2021-12-28] MEDS ORDERED: ACETAMINOPHEN 325 MG TABLET PO STA (13:54)
[2021-12-28] MEDS ORDERED: PIPERACILLIN SODIUM/TAZOBACTAM 4.5 GM in NS (IVPB) 100 ML IV ONE (14:00)
[2021-12-28] MEDS ORDERED: VANCOMYCIN INJECTION 1,000 MG in NS (IVPB) 250 ML IV ONE (14:00)
[2021-12-28 14:09] LABS: POTASSIUM 3.6 MMOL/L (3.6-5.0); SODIUM 136 MMOL/L (135-145)
[2021-12-28 14:10] LABS: ALANINE AMINOTRANSFERASE 6 U/L (0-55); ALBUMIN 2.2 GM/DL (3.2-4.5); ALKALINE PHOSPHATASE 155 U/L (40-136); BILIRUBIN,TOTAL 0.4 MG/DL (0.1-1.0); BUN/CREATININE RATIO 11; CARBON DIOXIDE 25 MMOL/L (21-32); CHLORIDE 97 MMOL/L (98-107); CREATININE SERUM 0.84 MG/DL (0.60-1.30); GFR ESTIMATED 72; GLUCOSE 119 MG/DL (70-105); MAGNESIUM 1.4 MG/DL (1.6-2.4)
[2021-12-28] MEDS ORDERED: CATHETER FLUSH 10 ML SYR IV PRN (14:30)
[2021-12-28] MEDS ORDERED: IOHEXOL 350 MG/ML 100 ML (OMNIPAQUE 350) VIAL IV ONE (14:30)
[2021-12-28] MEDS ORDERED: NS 100 ML (IVPB) BAG IV ONE (14:30)
[2021-12-28] MEDS ORDERED: HOLD METFORMIN - RECEIVED CONTRAST 20 ML VIAL IV SCH (14:30)
[2021-12-28] MEDS ORDERED: MAGNESIUM 2 GM/50 ML IVPB 50 ML IV STA (14:38)
[2021-12-28 14:40] LABS: BAND NEUTROPHILS 28 %; BASOPHILS % (MANUAL) 0 %; EOSINOPHILS % (MANUAL) 0 %; HYPOCHROMASIA 1+; LYMPHOCYTES % (MANUAL) 3 %; MICROCYTOSIS 1+; MONOCYTES % (MANUAL) 3 %; NEUTROPHILS % (MANUAL) 66 %; PLATELET ESTIMATE INCREASED
[2021-12-28] MEDS ORDERED: ASPIRIN 81 MG CHEW (CHILDREN'S ASA) PO ONE ×2 (14:45→17:15)
--- NOTE | 2021-12-28 15:10 | Diagnostic Imaging Report ---
EXAMINATION: CT angiography chest with and without, CT abdomen and pelvis with and without. TECHNIQUE: Noncontrast enhanced helical images were obtained through the chest, abdomen and pelvis. Contrast enhanced thin section helical images were obtained through the chest, abdomen and pelvis with intravenous contrast timed for the optimal opacification of the arterial structures per departmental CTA protocol. Post-processing, retro reconstructions and interpretation of angiographic images of the vessels was performed. 3D MIP reconstructions were performed and reviewed. All CT scans use one or more of the following dose optimizing techniques: automated exposure control, MA and/or KvP adjustment based on patient size and exam type or iterative reconstruction. HISTORY: Elevated D-dimer, abdominal mass COMPARISON: None available. FINDINGS: There is no pulmonary embolism. There is no edema or pneumonia. No pleural effusion. No pneumothorax. No suspicious nodules. Lungs are severely emphysematous. There is no axillary or supraclavicular lymphadenopathy. There is no mediastinal lymphadenopathy. Heart size is normal. There are moderate coronary artery calcifications. No pericardial effusion. Aorta is normal in caliber. There has been coronary artery bypass grafting. The liver is normal without focal lesion. There is no biliary ductal dilation. Gallbladder is normal. Pancreas is normal. Spleen is normal. Adrenal glands are normal. There is a simple cyst in the right kidney. There is an irregular soft tissue, cystic and calcified lesion in the left kidney measuring 2.5 x 3.8 cm. The internal areas of fat. There is no hydronephrosis. Urinary bladder is normal. Endometrium is mildly thickened. There is a long segment of active inflammation of the mid ileum. There is an interloop abscess measuring 2.5 x 1.2 cm (series 21, image 33). There are few locules of gas within the interloop abscess. There are enlarged mesenteric lymph nodes measuring up to 1.3 cm. Small amount of free fluid is present in the pelvis. Aorta is normal in caliber without aneurysm. There are no suspicious osseus lesions. IMPRESSION: 1. No pulmonary embolism. 2. Irregular soft tissue, fat and fluid lesion left kidney with calcifications. Renal protocol CT recommended as this is concerning for renal cell carcinoma. 3. Long segment active inflammation of the mid ileum with a focal interloop abscess containing gas and fluid measuring 2.5 x 1.2 cm. Findings concerning for inflammatory bowel disease. 4. Mildly thickened endometrium, followup pelvic sonogram recommended. Dictated by: Dictated on workstation # [id number]
[2021-12-28 19:04] VITALS: BP 102/51
[2021-12-28 20:21] VITALS: BP 96/53
[2021-12-28] MEDS ORDERED: ANTACID SUSP 30 ML UDC (MYLANTA) PO PRN (20:30)
[2021-12-28] MEDS ORDERED: MELATONIN 3 MG TABLET PO PRN ×2 (20:30→20:45)
[2021-12-28] MEDS ORDERED: BENZONATATE 100 MG (TESSALON) CAPSULE PO PRN (20:30)
[2021-12-28] MEDS ORDERED: MILK OF MAGNESIA 400 MG/5 ML 30 ML UDC PO PRN (20:30)
[2021-12-28] MEDS ORDERED: ONDANSETRON 4 MG/2 ML (SDV) Z0FRAN IV PRN (20:30)
[2021-12-28] MEDS ORDERED: ACETAMINOPHEN 325 MG TABLET PO PRN (20:45)
[2021-12-28 21:00] VITALS: BP 102/53
[2021-12-28] MEDS ORDERED: MAGNESIUM 1 GM/100 ML IVPB 100 ML IV ONE (21:17)
[2021-12-28] MEDS ORDERED: NS IV 1000 ML 1,000 ML ONE (21:18)
[2021-12-28 22:08] VITALS: BP 90/49
[2021-12-28] MEDS: MAGNESIUM 1 GM/100 ML IVPB 100 ML IV SCH ×2 (23:06→23:29)
[2021-12-28] MEDS: NS IV 1000 ML 1,000 ML IV SCH (23:07)
[2021-12-28 23:15] VITALS: BP 101/48
[2021-12-28] MEDS ORDERED: NS IV 1000 ML 1,000 ML IV SCH (23:30)
[2021-12-28 23:41] VITALS: BP 101/48
[2021-12-29] VITALS (29 sets, daily range): BP systolic 83–151; BP diastolic 45–99
[2021-12-29] MEDS ORDERED: NOREPINEPHRINE 8 MG/250 ML 250 ML IV ONE (00:26)
[2021-12-29] MEDS: PIPERACILLIN SODIUM/TAZOBACTAM 4.5 GM in NS (IVPB) 100 ML IV SCH ×4 (00:42→22:30)
--- NOTE | 2021-12-29 01:27 | Tele-ICU Progress Note ---
Subjective Date Seen by a Provider: Dec 29, 2021 Time Seen by a Provider: 13:00 Subjective/Events-last exam This virtual visit was conducted using real time audio/video. Thank you for asking us to see this patient for respiratory insufficiency due to COPD. Admitted w abd wall abscess. Recent events: recd 1 dose Solumedrol 125mg IV in ER. PMH: COPD/ 4 LPM home O2, CAD/CABG/stents, htn., HL, renal cancer. SH: smoking history; former FH: Non-contributory ROS: limited by patient's clinical condition, but in HPI. PE: VSS. O2 sat 97% on 2 LPM HEENT: No obvious masses, adenopathy or JVD. Chest: clear to auscultation. Diminished. CV: RRR S1 S2 No murmur or added sounds. Abd: tender mass. Bowel sounds Y. : Unremarkable. Hernandez Y. HOUSE ADMIN/psychiatric: Grossly intact. No obvious focal findings. Extremities: No edema. Capillary refill < 3 seconds. Skin: unremarkable. Results: Elevated WCC 19.9, BG 119, Lact 4.32, Trop 0.8. Decreased Hb 11.4, Alb 2.2, Mag 1.4. CXR: hyperinflated, clear feliciano. CTAC: No PE,. Emphys ematous changes.. Available chart/ vitals / labs / images reviewed. Video assessment done using teleICU camera, rest of exam as per RN. A/P: Respiratory insufficiency: Continue present management with O2, nebs, tessalon perles. PRN repeat medrol if wheezing. Monitor for increasing oxygenation needs and/or need for intubation. Critical Care: critically ill patient. Cont. abx, PRN pressors, ASA. Replace Mag. Discussed with SOPHIA Fagan. Asked RN to reach out to eICU if any questions or concerns later. Time spent with patient/coordination of care with other health professionals (mins): 25 Sepsis Event Evaluation Height, Weight, BMI Height: 5'3.00" Weight: 211lbs. 0.0oz. 95.820853cj; 29.16 BMI Method: Focused Exam Lactate Level 12/28/21 12:57: Lactic Acid Level 4.32*H 12/28/21 15:24: Lactic Acid Level 1.49 Exam Exam Patient acknowledged, consented, and participated in this virtual visit which was conducted using real time audio/video Vital Signs Date Time Temp Pulse Resp B/P (MAP) Pulse Ox O2 Delivery O2 Flow Rate FiO2 12/29/21 00:00 50 11 83/47 (59) 95 Nasal Cannula 2.00 12/28/21 23:41 36.2 53 14 101/48 (65) 96 12/28/21 23:15 49 18 101/48 (65) 98 Nasal Cannula 2.00 12/28/21 22:08 61 90/49 (63) 96 Nasal Cannula 2.00 12/28/21 21:00 70 24 102/53 (81) 92 Nasal Cannula 2.00 12/28/21 20:21 64 25 96/53 (77) 92 Room Air 12/28/21 19:30 Nasal Cannula 2.00 12/28/21 19:07 69 12/28/21 19:04 36.2 78 30 102/51 (79) 92 Room Air 12/28/21 17:56 35.6 85 20 104/68 97 12/28/21 16:54 38.5 125 22 112/60 (77) 97 12/28/21 13:58 38.7 I & O 12/29/21 07:00 Intake Total 200 ml Output Total 0 ml Balance 200 ml Height & Weight Height: 5'3.00" Weight: 211lbs. 0.0oz. 95.896344nc; 29.16 BMI Method: General Appearance: Mild Distress HEENT: PERRL/EOMI, Pharynx Normal Neck: Full Range of Motion, Normal Inspection, Non Tender, Supple Respiratory: Lungs Clear, No Accessory Muscle Use, Rhonci (mild), Wheezing (Very mild occasional wheezing initially, prior to giving neb treatments) Cardiovascular: Regular Rate, Rhythm, No Edema, Normal Peripheral Pulses Extremity: Normal Range of Motion Neurologic/Psychiatric: Alert, Oriented x3, No Motor/Sensory Deficits, Normal Mood/Affect Skin: Pallor Lymphatic: No Adenopathy Results Lab Laboratory Tests 12/28/21 12:57 Assessment/Plan Assessment/Plan See free text. Critical Care: Critically Ill Patient SHEBA LEWIS MD Dec 29, 2021 01:27
[2021-12-29] MEDS: NOREPINEPHRINE 8 MG/250 ML 250 ML IV SCH ×2 (02:52→16:51)
[2021-12-29] MEDS: NS IV 1000 ML 1,000 ML IV SCH ×3 (04:02→18:26)
[2021-12-29 05:07] LABS: HEMATOCRIT 35 % (35-52); HEMOGLOBIN 11.1 g/dL (11.5-16.0); MEAN CORPUSCULAR HEMOGLOBIN 29 pg (25-34); MEAN CORPUSCULAR HGB CONC 32 g/dL (32-36); MEAN CORPUSCULAR VOLUME 90 fL (80-99); PLATELET COUNT 424 10^3/uL (130-400); WHITE BLOOD COUNT 21.5 10^3/uL (4.3-11.0)
[2021-12-29 05:25] LABS: POTASSIUM 2.9 MMOL/L (3.6-5.0)
[2021-12-29 05:26] LABS: CALCIUM 7.5 MG/DL (8.5-10.1)
[2021-12-29 05:31] LABS: CREATININE SERUM 0.64 MG/DL (0.60-1.30); INR 1.1 (0.8-1.4); PROTHROMBIN TIME PATIENT 14.5 SEC (12.2-14.7)
[2021-12-29 05:33] LABS: MAGNESIUM 2.4 MG/DL (1.6-2.4)
[2021-12-29] MEDS: MAGNESIUM 1 GM/100 ML IVPB 100 ML IV SCH (05:59)
[2021-12-29] MEDS: KCL 20 MEQ TAB (K-DUR) PO SCH (06:00)
[2021-12-29] MEDS: POTASSIUM CL 10MEQ/50ML IVPB 50 ML IV SCH ×6 (06:07→13:48)
--- NOTE | 2021-12-29 08:18 | History & Physical-Hospitalist ---
History of Present Illness HPI/Chief Complaint Patient 76-year-old female with past medical history of coronary artery disease status post CABG, renal cell carcinoma, hypertension, COPD who presented to the emergency department due to generalized weakness. She reports for the past couple weeks she has not felt well and has become weaker and weaker every day. Yesterday she was unable to get out of bed prompting her to seek evaluation in the emergency department. She was found to be febrile and complained of abdominal pain so CT of her abdomen was obtained. This revealed possible abdominal abscess secondary to inflammatory bowel disease. Patient reports a history of this in May of last year. I did discuss this with her primary care doctor who states it was actually May 2020. CT also revealed possible endometrial thickening and recurrence of renal cell carcinoma. Patient states that she has known about the spot in her kidney for a while and chose not to get anything else done. She was also found to have an elevated troponin from 0.8-1.2 yesterday. She was admitted to stepdown but became hypotensive and was transferred to the ICU for pressors. Overall she reports feeling better and denies any further abdominal pain. She is requesting something to eat instead. Source: patient Date Seen 12/29/21 Time Seen by a Provider: 07:40 Attending Physician Ina Ag MD PCP Admitting Physician: Luke Mckeon MD Attending Physician: Luke Mckeon MD Referring Physician Date of Admission Dec 28, 2021 at 19:05 Home Medications & Allergies Home Medications Reviewed patient Home Medication Reconciliation performed by pharmacy medication reconciliations certified emergency vehicle technician and/or nursing. Patients Allergies have been reviewed. Allergies Allergies Coded Allergies No Known Drug Allergies (Verified12/22/07) Past Ochyeqb-Scnvob-Ymhxxp Hx Patient Social History Employed/Student: retired Tobacco Use?: Yes Tobacco type used: Cigarettes Smoking Status: Current Everyday Smoker Smokeless Tobacco Frequency: Never a User Use of E-Cig and/or Vaping dev: No Substance use?: No Alcohol Use?: No Pt feels they are or have been: No Immunizations Up To Date Tetanus Booster (TDap): Less Than 5 Years Seasonal Allergies Seasonal Allergies: No Current Status status: No Primary Language: Arabic Preferred Spoken Language: Arabic Is interpretation needed?: No Implanted or Applied Medical D: None Past Medical History Surgeries: CABG, Orthopedic Asthma Coronary Artery Disease, Heart Attack, Hypertension Sexually Transmitted Disease: No Arthritis Kidney Did You Recieve Any Treatments: Yes What Type of Treatment Did You: Surgical Intervention Blood Disorders: No Family Medical History Reviewed Nursing Family Hx Heart Disease, Hypertension Review of Systems Constitutional: fever, malaise, weakness EENTM: no symptoms reported Respiratory: No cough, No short of breath Cardiovascular: No chest pain, No edema Gastrointestinal: abdominal pain; No nausea, No vomiting Genitourinary: no symptoms reported Musculoskeletal: no symptoms reported Skin: no symptoms reported Psychiatric/Neurological: No Symptoms Reported Physical Exam Physical Exam Vital Signs Vital Signs - First Documented 12/28/21 12/28/21 12/28/21 12/28/21 12/29/21 13:58 16:54 19:04 19:30 07:46 Temp 38.7 Pulse 125 Resp 22 B/P (MAP) 112/60 (77) Pulse Ox 97 O2 Delivery Room Air O2 Flow Rate 2.00 FiO2 99 Capillary Refill : Height, Weight, BMI Height: 5'3.00" Weight: 211lbs. 0.0oz. 95.787422vk; 29.16 BMI Method: General Appearance: No Apparent Distress, Chronically ill HEENT: PERRL/EOMI, Moist Mucous Membranes; No Scleral Icterus (L), No Scleral Icterus (R); Other (4lpm NC) Neck: Normal Inspection, Supple; No JVD Respiratory: Lungs Clear, No Accessory Muscle Use, No Respiratory Distress Cardiovascular: Regular Rate, Rhythm, No JVD, No Murmur Gastrointestinal: Normal Bowel Sounds, Non Tender, Soft; No Distended, No Guarding Extremity: Normal Capillary Refill, Non Tender, No Calf Tenderness, No Pedal Edema Neurologic/Psychiatric: Alert, Oriented x3, Normal Mood/Affect; No Aphasia, No Facial Droop Skin: Normal Color, Warm/Dry Results Results/Procedures Labs Laboratory Tests 12/28/21 12:57 12/29/21 04:30 Patient resulted labs reviewed. Imaging [facility], [place] NAME: KESHIA BOLES [facility] REC#: [id number] PT STATUS: REG ER : 1945 PHYSICIAN: MICHELLE HOLMAN MD ADMIT DATE: 12/28/21/ER FS Signed Date of Exam:12/28/21 CHEST 1 VIEW AP/PA ONLY INDICATION: Shortness of air and cough. TIME OF EXAM: 1:10 PM. COMPARISON: No prior studies are available for comparison. FINDINGS: Changes of median sternotomy and CABG are noted. The lungs appear clear of acute infiltrates. No effusion or pneumothorax is detected. There are postop changes to the left shoulder. IMPRESSION: No acute cardiopulmonary process is detected. Dictated by: Dictated on workstation # [id number] Dict: 12/28/21 1316 Trans: 12/28/21 1606 [id number] Interpreted by: LUPILLO RAMIREZ MD Electronically signed by: LUPILLO RAMIREZ MD 12/28/21 1606 [facility], [place] NAME: KESHIA BOLES [facility] REC#: [id number] PT STATUS: REG ER : 1945 PHYSICIAN: MICHELLE HOLMAN MD ADMIT DATE: 12/28/21/ER FS Signed Date of Exam:12/28/21 CT MALICK CHEST/NOANG ABD-PELV W EXAMINATION: CT angiography chest with and without, CT abdomen and pelvis with and without. TECHNIQUE: Noncontrast enhanced helical images were obtained through the chest, abdomen and pelvis. Contrast enhanced thin section helical images were obtained through the chest, abdomen and pelvis with intravenous contrast timed for the optimal opacification of the arterial structures per departmental CTA protocol. Post-processing, retro reconstructions and interpretation of angiographic images of the vessels was performed. 3D MIP reconstructions were performed and reviewed. All CT scans use one or more of the following dose optimizing techniques: automated exposure control, MA and/or KvP adjustment based on patient size and exam type or iterative reconstruction. HISTORY: Elevated D-dimer, abdominal mass COMPARISON: None available. FINDINGS: There is no pulmonary embolism. There is no edema or pneumonia. No pleural effusion. No pneumothorax. No suspicious nodules. Lungs are severely emphysematous. There is no axillary or supraclavicular lymphadenopathy. There is no mediastinal lymphadenopathy. Heart size is normal. There are moderate coronary artery calcifications. No pericardial effusion. Aorta is normal in caliber. There has been coronary artery bypass grafting. The liver is normal without focal lesion. There is no biliary ductal dilation. Gallbladder is normal. Pancreas is normal. Spleen is normal. Adrenal glands are normal. There is a simple cyst in the right kidney. There is an irregular soft tissue, cystic and calcified lesion in the left kidney measuring 2.5 x 3.8 cm. The internal areas of fat. There is no hydronephrosis. Urinary bladder is normal. Endometrium is mildly thickened. There is a long segment of active inflammation of the mid ileum. There is an interloop abscess measuring 2.5 x 1.2 cm (series 21, image 33). There are few locules of gas within the interloop abscess. There are enlarged mesenteric lymph nodes measuring up to 1.3 cm. Small amount of free fluid is present in the pelvis. Aorta is normal in caliber without aneurysm. There are no suspicious osseus lesions. IMPRESSION: 1. No pulmonary embolism. 2. Irregular soft tissue, fat and fluid lesion left kidney with calcifications. Renal protocol CT recommended as this is concerning for renal cell carcinoma. 3. Long segment active inflammation of the mid ileum with a focal interloop abscess containing gas and fluid measuring 2.5 x 1.2 cm. Findings concerning for inflammatory bowel disease. 4. Mildly thickened endometrium, followup pelvic sonogram recommended. Dictated by: Dictated on workstation # [id number] Dict: 12/28/21 1456 Trans: 12/28/21 172 [facility] [id number] Interpreted by: KELL CARRERA MD Electronically signed by: KELL CARRERA MD 12/28/21 5485 Assessment/Plan Admission Diagnosis Septic Shock Admission Status: Inpatient Order (span 2 midnights) Reason for Inpatient Admission: see below Assessment and Plan Septic Shock- POA Intrabdominal abscess with fever and leukocytosis on arrival Lactic acid >4 on arrival Contnue on IV abx Discussed with Dr Zhang who will review images and see if amenable to intervention- may need IR Await cultures Currently on levophed, wean as able NSTEMI CAD s/p CABG HTN Cardiology consulted, appreciate recs Troponin now trended down after initially going up Continue ASA Has not followed with CTS or Cardiology in years h/o Renal Cell Suresh Last saw [facility] in 2004 Was told she may have had a recurrence but did not pursue treatment (though states it was her right kidney at the time) Lesion on left kidney concerning for recurrence Discussed with Dr Ag- had CT done in roughly 2019- she will attempt to cloud images over for us to compare COPD Chronic respiratory failure Baseline 4lpm home oxygen need At baseline MAT protocol DVT ppx: Lovenox once seen by surgery Diagnosis/Problems Diagnosis/Problems (1) NSTEMI (non-ST elevated myocardial infarction) (2) Renal cell carcinoma (3) HTN (hypertension) (4) CAD (coronary artery disease) (5) Hx of CABG (6) COPD (chronic obstructive pulmonary disease) (7) Chronic respiratory failure (8) Hypokalemia (9) Septic shock (10) Generalized weakness Status: Acute (11) Elevated troponin Status: Acute (12) Abdominal abscess Status: Acute LUKE MCKEON MD Dec 29, 2021 08:18
--- NOTE | 2021-12-29 09:48 | Physical Therapy Progress Note ---
Therapy Progress Note Due to transfer to ICU, PT will require new orders to initiate treatment. WAYNE TOSCANO PT Dec 29, 2021 09:48
--- NOTE | 2021-12-29 10:12 | Consultation-Cardiology ---
HPI-Cardiology Cardiology Consultation: Date of Consultation 12/29/21 Time Seen by a Provider: 09:50 Date of Admission 12-28-21 Attending Physician Ina Ag MD Admitting Physician Admitting Physician: Madyson Mckeon MD Attending Physician: Madyson Mckeon MD Consulting Physician Mitchell Bansal MD HPI: Chief Complaint: Elevated troponin Ms. Wharton is a 76 yr old female who has been admitted to ICU 1. She reports yesterday she began to have diffuse abdominal pain, diarrhea, nausea and vomiting. 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 She has chronic SOB which is unchanged in the recent past. Last night while on cardiac step down she developed hypotension which prompted transfer to ICU. She report abd pain has resolved. No further c/o nausea. She reports intermittent bilat LE swelling. No c/o syncope or near syncope. Family reports recent weight loss of unknown cause. Review of Systems-Cardiology Review of Systems Constitutional: No chills, No fever; malaise Eyes: No vision change Ears/Nose/Throat: No epistaxis, No recent hearing loss Respiratory: As described under HPI Cardiovascular: As described under HPI Gastrointestinal: As described under HPI Genitourinary: No dysuria, No hematuria Musculoskeletal: As describe under HPI Skin: No rash on exposed areas, No ulcerations on exposed areas Psychiatric/Neurological: No anxiety, No depression, No seizure, No focal weakness, No syncope Hematologic: No bleeding abnormalities MSB-Goxbsb-Ehocam Hx Patient Social History Smoking Status: Current Everyday Smoker Have you traveled recently?: No Alcohol Use?: No Pt feels they are or have been: No Tobacco type used: Cigarettes Past Medical History PMH As described under Assessment. Family Medical History Family Medical History: Reports father had CAD Allergies and Home Medications Allergies Coded Allergies: No Known Drug Allergies (Verified , 12/22/07) Patient Home Medication List Acetaminophen (Tylenol Extra Strength) 500 Mg Tablet, 1,000 MG PO Q8H PRN for PAIN-MILD (1-4), (Reported) Entered as Reported by: JEAN CHAUDHARI on 12/29/21 1110 Last Action: Reviewed Discontinued Medications Amlodipine Besylate (Amlodipine Besylate) 5 Mg Tablet, 5 MG PO DAILY, (Reported) Discontinued Reason: No Longer Taking Entered as Reported by: CASEY MOORE on 06/22/111339 Last Action: Discontinued Aspirin (Ecotrin) 81 Mg Tablet.dr, 81 MG PO DAILY, (Reported) Discontinued Reason: No Longer Taking Entered as Reported by: CASEY MOORE on 06/22/111339 Last Action: Discontinued Citalopram Hydrobromide (Citalopram Hbr) 20 Mg Tablet, 20 MG PO DAILY, (Reported) Discontinued Reason: No Longer Taking Entered as Reported by: CASEY MOORE on 06/22/111339 Last Action: Discontinued Fish Oil/Dha/Epa (Fish Oil 1,200 Mg Fish Oil) 1 Each Capsule, 1 EACH PO BID, (Reported) Discontinued Reason: No Longer Taking Entered as Reported by: CASEY MOORE on 06/22/111339 Last Action: Discontinued Furosemide (Furosemide) 40 Mg Tablet, 1 EACH PO TUE-TUE-TUE PRN, (Reported) Discontinued Reason: No Longer Taking Entered as Reported by: CASEY MOORE on 06/22/111339 Last Action: Discontinued Hyoscyamine Sulfate (Levsin-Sl) 0.125 Mg Tab.subl, 0.125 MG SL Q4H Discontinued Reason: No Longer Taking Prescribed by: ALYSSA HUYNH on 03/14/202001 Last Action: Discontinued Lisinopril (Prinivil) 20 Mg Tablet, 20 MG PO DAILY, (Reported) Discontinued Reason: No Longer Taking Entered as Reported by: CASEY MOORE on 06/22/111339 Last Action: Discontinued Metoprolol Tartrate (Metoprolol Tartrate 25 Mg) 25 Mg Tablet, 1 TAB PO BID, (Reported) Discontinued Reason: No Longer Taking Entered as Reported by: CASEY MOORE on 06/22/111339 Last Action: Discontinued Naproxen (Naprosyn) 500 Mg Tablet, 1 EACH PO BID, (Reported) Discontinued Reason: No Longer Taking Entered as Reported by: CSAEY MOORE on 06/22/111339 Last Action: Discontinued Niacin (Niaspan) 500 Mg Tablet.sa, 1,500 MG PO DAILY, (Reported) Discontinued Reason: No Longer Taking Entered as Reported by: CASEY MOORE on 06/22/111339 Last Action: Discontinued Ondansetron (Ondansetron Odt) 4 Mg Tab.rapdis, 4 MG PO Q6H PRN for NAUSEA/VOMITING Discontinued Reason: No Longer Taking Prescribed by: ALYSSA HUYNH on 03/14/202001 Last Action: Discontinued Potassium Chloride (Potassium Chloride) 20 Meq Packet, 20 MEQ PO TUE-TUE-TUE PRN, (Reported) Discontinued Reason: No Longer Taking Entered as Reported by: CASEY MOORE on 06/22/111339 Last Action: Discontinued Pravastatin Sodium (Pravachol) 80 Mg Tablet, 80 MG PO DAILY, (Reported) Discontinued Reason: No Longer Taking Entered as Reported by: CASEY MOORE on 06/22/111339 Last Action: Discontinued Tramadol Hcl (Tramadol Hcl) 50 Mg Tablet, 50 MG PO DAILY PRN, (Reported) Discontinued Reason: No Longer Taking Entered as Reported by: CASEY MOORE on 06/22/111339 Last Action: Discontinued Physical Exam-Cardiology Physical Exam Vital Signs/I&O 12/29/21 12/29/21 12/29/21 12/29/21 04:14 05:00 06:00 06:44 Temp 36.0 Pulse 53 76 62 Resp 14 11 B/P (MAP) 116/49 (93) 110/52 (69) Pulse Ox 98 96 O2 Delivery Nasal Cannula Nasal Cannula O2 Flow Rate 4.00 4.00 12/29/21 12/29/21 12/29/21 12/29/21 07:00 07:32 07:46 08:00 Temp 36.0 Pulse 72 67 Resp 9 13 B/P (MAP) 106/95 (99) 95/76 (82) Pulse Ox 91 95 O2 Delivery Nasal Cannula Nasal Cannula Nasal Cannula O2 Flow Rate 4.00 4.00 4.00 FiO2 99 12/29/21 12/29/21 12/29/21 12/29/21 08:40 09:00 10:00 11:00 Pulse 64 71 85 81 Resp 17 12 B/P (MAP) 124/60 115/53 (73) 119/56 (77) 103/83 (90) Pulse Ox 94 95 97 O2 Delivery Nasal Cannula Nasal Cannula Nasal Cannula O2 Flow Rate 4.00 4.00 4.00 12/29/21 12/29/21 12/29/21 12/29/21 11:30 12:00 12:00 12:15 Temp 36.1 Pulse 75 71 Resp 10 B/P (MAP) 91/74 (80) O2 Delivery Nasal Cannula Nasal Cannula O2 Flow Rate 4.00 4.00 FiO2 96 12/29/21 12/29/21 12/29/21 12/29/21 13:00 14:00 15:00 15:26 Temp 36.2 Pulse 74 80 85 Resp 31 12 B/P (MAP) 106/77 (87) 127/77 (94) 138/88 (105) Pulse Ox 98 95 100 O2 Delivery Nasal Cannula Nasal Cannula Nasal Cannula O2 Flow Rate 4.00 4.00 4.00 12/29/21 00:00 Intake Total 200 ml Output Total 0 ml Balance 200 ml Capillary Refill : Constitutional: AAO x 3, well-developed, well-nourished HEENT: PERRL, hearing is well preserved, oral hygience is good Neck: No carotid bruit; carotid pulses are 2 + bilaterally Respiratory: No accessory muscle use, No respiratory distress; chest expansion is symmetric, chest is bilaterally symmetric, rhonchi (scattered) Cardiovascular: regular rate-rhythm; No JVD; S1 and S2, other (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 (reports chronic)) Gastrointestinal: No tender; soft, round, audible bowel sounds Extremities: no lower extremity edema bilateral Neurologic/Psychiatric: grossly intact (moves all extremities) Skin: No rash on exposed areas, No ulcerations on exposed areas Data Review Labs Laboratory Tests 12/29/21 00:35: Glucometer 128H 12/29/21 04:30: White Blood Count 21.5H, Red Blood Count 3.85, Hemoglobin 11.1L, Hematocrit 35, Mean Corpuscular Volume 90, Mean Corpuscular Hemoglobin 29, Mean Corpuscular Hemoglobin Concent 32, Red Cell Distribution Width 14.0, Platelet Count 424H, Mean Platelet Volume 10.0, Prothrombin Time 14.5, INR Comment 1.1, Sodium Level 140, Potassium Level 2.9L, Chloride Level 105, Carbon Dioxide Level 23, Anion G ap 12, Blood Urea Nitrogen 9, Creatinine 0.64, Estimat Glomerular Filtration Rate 92, BUN/Creatinine Ratio 14, Glucose Level 126H, Calcium Level 7.5L, Magnesium Level 2.4, Troponin I 0.321*H 6/14/22 14:40: Potassium Level 3.9 Microbiology 12/28/21 Blood Culture - Preliminary, Resulted Probable Coag Negative [facility] NAME: KESHIA WHARTON [facility] REC#: [id number] PT STATUS: REG ER : 1945 PHYSICIAN: MICHELLE HOLMAN MD ADMIT DATE: 12/28/21/ER FS Signed Date of Exam:12/28/21 CHEST 1 VIEW AP/PA ONLY INDICATION: Shortness of air and cough. TIME OF EXAM: 1:10 PM. COMPARISON: No prior studies are available for comparison. FINDINGS: Changes of median sternotomy and CABG are noted. The lungs appear clear of acute infiltrates. No effusion or pneumothorax is detected. There are postop changes to the left shoulder. IMPRESSION: No acute cardiopulmonary process is detected. Dictated by: Dictated on workstation # [id number] Dict: 12/28/21 1316 Trans: 12/28/21 1606 [id number] Interpreted by: LUPILLO RAMIREZ MD Electronically signed by: LUPILLO RAMIREZ MD 12/28/21 1606 NAME: KESHIA WHARTON [facility] REC#: [id number] PT STATUS: REG ER : 1945 PHYSICIAN: MICHELLE HOLMAN MD ADMIT DATE: 12/28/21/ER FS Signed Date of Exam:12/28/21 CT MALICK CHEST/NOANG ABD-PELV W EXAMINATION: CT angiography chest with and without, CT abdomen and pelvis with and without. TECHNIQUE: Noncontrast enhanced helical images were obtained through the chest, abdomen and pelvis. Contrast enhanced thin section helical images were obtained through the chest, abdomen and pelvis with intravenous contrast timed for the optimal opacification of the arterial structures per departmental CTA protocol. Post-processing, retro reconstructions and interpretation of angiographic images of the vessels was performed. 3D MIP reconstructions were performed and reviewed. All CT scans use one or more of the following dose optimizing techniques: automated exposure control, MA and/or KvP adjustment based on patient size and exam type or iterative reconstruction. HISTORY: Elevated D-dimer, abdominal mass COMPARISON: None available. FINDINGS: There is no pulmonary embolism. There is no edema or pneumonia. No pleural effusion. No pneumothorax. No suspicious nodules. Lungs are severely emphysematous. There is no axillary or supraclavicular lymphadenopathy. There is no mediastinal lymphadenopathy. Heart size is normal. There are moderate coronary artery calcifications. No pericardial effusion. Aorta is normal in caliber. There has been coronary artery bypass grafting. The liver is normal without focal lesion. There is no biliary ductal dilation. Gallbladder is normal. Pancreas is normal. Spleen is normal. Adrenal glands are normal. There is a simple cyst in the right kidney. There is an irregular soft tissue, cystic and calcified lesion in the left kidney measuring 2.5 x 3.8 cm. The internal areas of fat. There is no hydronephrosis. Urinary bladder is normal. Endometrium is mildly thickened. There is a long segment of active inflammation of the mid ileum. There is an interloop abscess measuring 2.5 x 1.2 cm (series 21, image 33). There are few locules of gas within the interloop abscess. There are enlarged mesenteric lymph nodes measuring up to 1.3 cm. Small amount of free fluid is present in the pelvis. Aorta is normal in caliber without aneurysm. There are no suspicious osseus lesions. IMPRESSION: 1. No pulmonary embolism. 2. Irregular soft tissue, fat and fluid lesion left kidney with calcifications. Renal protocol CT recommended as this is concerning for renal cell carcinoma. 3. Long segment active inflammation of the mid ileum with a focal interloop abscess containing gas and fluid measuring 2.5 x 1.2 cm. Findings concerning for inflammatory bowel disease. 4. Mildly thickened endometrium, followup pelvic sonogram recommended. 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 She has been evaluated by various surgeons, including Dr. Leong at [facility] in [place], [place], and has been advised to avoid further surgery, she states Sleep apnea for which she is to be on C-PAP therapy, but she has been noncompliant - follows with Dr. Chavez Coronary artery disease - with history of left internal mammary artery graft to left anterior descending arteryin December 2007 after she had presented with non-ST elevation myocardial infarction. Surgery was carried out by Dr. Phillips in [place], [place]. - Myocardial perfusion imaging was last carried out in March 2010 and it did not show any significant myocardial ischemia or infarction and left ventricular ejection fraction was calculated to be 74%. - Cardiac catheterization of 06/22/11 showed that the left internal mammary artery graft to distal left anterior descending artery was widely patent. The patient does have proximal left anterior descending artery disease which also subserves a fairly large first diagonal branch, which was not bypassed. However, the distal left anterior descending artery is well protected with the internal mammary artery graft and the patient is currently not reporting angina - MPI of December 2015 showed no evidence of significant myocardial ischemia or infarction. LVEFof 78%6. Echo of April 2012 showed LVEF 55-60% and PASP 35-40. Hypertension Mild peripheral arterial disease on angiography of November [address] Mcginnis. - Leg arterial Doppler of May 2011 showed mild diffuse atherosclerotic disease. There was no evidence of abdominal aortic aneurysm or dissection. Hyperlipidemia - managed by PCP Chronic obstructive pulmonary disease - due to chronic tobaccoism. Mild carotid arterial disease per ultrasonography of September 2013. Discussion and Recomendations Mildly elevated troponin - likely Type 2 TX secondary to hypotension vs NSTEMI (needs to be considered d/t known h/o CAD and CABG) Continue ASA 81 mg daily if ok with medical services Advise echocardiogram to f/u on valvular status and function H/O CAD with CABG - likely will need further coronary eval with an MPI Replace electrolytes Monitor lab closely Further recs will be based on her hospital course Management of abd pain per medical services Spoke with Dr. Mckeon this morning DARRIUS ARORA Dec 29, 2021 10:12
--- NOTE | 2021-12-29 10:13 | Tele-ICU Progress Note ---
Progress Note f/up on consult done last night Available chart/ vitals / labs / Images reviewed Video assessment done using teleICU camera Discussed with RN. CPM Focused Exam Lactate Level 12/28/21 12:57: Lactic Acid Level 4.32*H 12/28/21 15:24: Lactic Acid Level 1.49 Height, Weight, BMI Height: 5'3.00" Weight: 211lbs. 0.0oz. [id number]; 29.16 BMI Method: MITESH BAKER MD Dec 29, 2021 10:13
--- NOTE | 2021-12-29 10:18 | Occ Therapy Progress Note ---
Therapy Progress Note Due to transfer to ICU, OT will require new orders to initiate treatment. Vidya Morejon OT Dec 29, 2021 10:18
[2021-12-29] MEDS ORDERED: ACET-2267 PO (11:10)
[2021-12-29] MEDS ORDERED: FLUCONAZOLE 200 MG/100 ML 100 ML IV NR (13:00)
--- NOTE | 2021-12-29 14:20 | CONSULTATION REPORT ---
DATE OF SERVICE: 12/29/2021 ATTENDING PRIMARY CARE PHYSICIAN: Ina Ag MD ADMITTING PHYSICIAN: Dr. Mckeon. HISTORY OF PRESENT ILLNESS: The patient is a 76-year-old female, who presented to [facility] with weakness. Upon further questioning, she reports that she has had this progressive weakness and inability to eat and weight loss since July of this year. She reports that over that timeframe, she has lost approximately 100 pounds as well. She reports that when she does eat this does cause crampy abdominal pain, which then usually goes away on its own. She reports that her food volume has also decreased as well. She also does report at times she does have nausea and dry heaving; however, no vomiting. Also, she does report that she has had diarrhea as well as some mucousy stools for the past 6 to 7 months as well. She does not report any red blood per rectum nor any dark tarry stools. She also reports that she has had some fevers as well as chills in the past few days as well. A CT scan was performed, which did show an inflammation segment of mid ileum as well as a small interloop abscess, which may indicate some level of inflammatory bowel disease. This also may be related to an area of stricture or fistula, which has contributed to her symptoms and weight loss as well. PAST MEDICAL HISTORY: Hypertension, hypercholesterolemia, COPD, degenerative joint disease, history of myocardial infarction, coronary artery disease, history of left renal cell cancer. PAST SURGICAL HISTORY: Left kidney radiofrequency ablation, tubal ligation, bilateral knee arthroscopy, left shoulder replacement. ALLERGIES: She no known drug allergies. MEDICATIONS: Amlodipine 5 mg daily, aspirin 81 mg daily, citalopram 20 mg daily, fish oil 1200 mg b.i.d. Furosemide 40 mg daily, lisinopril 20 mg daily, metoprolol 25 mg b.i.d., niacin 500 mg daily, potassium 20 mEq daily three days a week, pravastatin 80 mg daily, tramadol p.r.n. SOCIAL HISTORY: Positive smoke 40 pack years. Negative alcohol. FAMILY HISTORY: Noncontributory. VITAL SIGNS: Temperature 36.1, blood pressure 106/77, pulse 74, respirations 20, pulse ox 98% on 4 liters nasal cannula. REVIEW OF SYSTEMS: Well-nourished female currently in no acute distress. She is not experiencing any shortness of breath or difficulty breathing. She does have a chronic cough that is nonproductive. Intermittent episodes of crampy abdominal pain after eating meals as well as nausea; however, no vomiting. Intermittent episodes of diarrhea with mucusy stools; however, no red blood per rectum nor any dark tarry stools. Intermittent fevers and chills for the past 3 days with approximately 100 pound weight loss in the past 6 months. All other review of systems negative. PHYSICAL EXAMINATION: CHEST: Scattered wheezes and rhonchi bilaterally. HEART: Regular, no murmurs. EXTREMITIES: No lower extremity edema, negative Homans sign. HEENT: No scleral icterus. NECK: No cervical lymphadenopathy. ABDOMEN: Soft, nondistended. There is some discomfort and pain in the mid abdominal region. No palpable masses, no hernias. SKIN: Warm and dry. LABORATORY DATA: WBC 21.5, hemoglobin 11.1, hematocrit 35, platelets 424, BUN 9, creatinine 0.64. ASSESSMENT AND PLAN: A 76-year-old female with mid ileal inflammation as well as interloop abscess. Her signs and symptomatology sounded to be related to undiagnosed Crohn's. With this Crohn's disease, it also sounds as though she has developed a stricture or fistula within the area of the small bowel. We will try to confirm this with a CT scan with oral contrast and if this is an area of stricture or fistulization, we will then proceed with a diagnostic laparoscopy as well as a resection of the diseased portion of the small bowel. Again if this is consistent with crohn's disease she will also need to be referred to gastroenterology as an outpatient for care home management and medical therapy. Job ID: [id number] DocumentID: [id number] Dictated Date: 12/29/2021 13:46:16 Ticket Chopper Assembler Date: 12/29/2021 14:19:17 Dictated By: SAFIA GONZALEZ MD MTDD
[2021-12-29] MEDS ORDERED: HOLD METFORMIN - RECEIVED CONTRAST 20 ML VIAL IV SCH (14:45)
[2021-12-29] MEDS ORDERED: NS 100 ML (IVPB) BAG IV ONE (14:45)
[2021-12-29] MEDS ORDERED: DIATRIZOATE MEGLUM/SODIUM 37% 120 ML (GASTROGRAFIN) PO ONE (14:45)
[2021-12-29] MEDS ORDERED: IOHEXOL 350 MG/ML 100 ML (OMNIPAQUE 350) VIAL IV ONE (14:45)
[2021-12-29] MEDS ORDERED: CATHETER FLUSH 10 ML SYR IV PRN (14:45)
--- NOTE | 2021-12-29 15:42 | Consultation-Cardiology ---
HPI-Cardiology Cardiology Consultation: Date of Consultation 12/29/21 Time Seen by a Provider: 15:40 Date of Admission Attending Physician Ina Ag MD Admitting Physician Admitting Physician: Madyson Mckeon MD Attending Physician: Madyson Mckeon MD Consulting Physician MARTITA GUSTAFSON MD, MA, FACP, FACC, FSCAI, CCDS Physician requesting consult: Dr Mckeon HPI: Chief Complaint: Reason for Card consult: Elevated troponin Ms. Wharton is a 76 yr old female who has been admitted to ICU 1. She reports yesterday she began to have diffuse abdominal pain, diarrhea, nausea and vo miting. 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 She has chronic SOB which is unchanged in the recent past. Last night while on cardiac step down she developed hypotension which prompted transfer to ICU. She report abd pain has resolved. No further c/o nausea. She reports intermittent bilat LE swelling. No c/o syncope or near syncope. Family reports recent weight loss of unknown cause. Review of Systems-Cardiology Review of Systems Constitutional: No chills, No fever; malaise Eyes: No vision change Ears/Nose/Throat: No epistaxis, No recent hearing loss Respiratory: As described under HPI Cardiovascular: As described under HPI Gastrointestinal: As described under HPI Genitourinary: No dysuria, No hematuria Musculoskeletal: As describe under HPI Skin: No rash on exposed areas, No ulcerations on exposed areas Psychiatric/Neurological: No anxiety, No depression, No seizure, No focal weakness, No syncope Hematologic: No bleeding abnormalities GTH-Xckrhg-Ptrsfc Hx Patient Social History Employed/Student: retired Smoking Status: Current Everyday Smoker Have you traveled recently?: No Alcohol Use?: No Pt feels they are or have been: No Tobacco type used: Cigarettes Past Medical History PMH As described under Assessment. Family Medical History Family Medical History: Reports father had CAD Allergies and Home Medications Allergies Coded Allergies: No Known Drug Allergies (Verified , 12/22/07) Patient Home Medication List Home Medication List Reviewed: Yes Acetaminophen (Tylenol Extra Strength) 500 Mg Tablet, 1,000 MG PO Q8H PRN for PAIN-MILD (1-4), (Reported) Entered as Reported by: JEAN CHAUDHARI on 12/29/21 1110 Last Action: Reviewed Discontinued Medications Amlodipine Besylate (Amlodipine Besylate) 5 Mg Tablet, 5 MG PO DAILY, (Reported) Discontinued Reason: No Longer Taking Entered as Reported by: CASEY MOORE on 06/22/111339 Last Action: Discontinued Aspirin (Ecotrin) 81 Mg Tablet.dr, 81 MG PO DAILY, (Reported) Discontinued Reason: No Longer Taking Entered as Reported by: CASEY MOORE on 06/22/111339 Last Action: Discontinued Citalopram Hydrobromide (Citalopram Hbr) 20 Mg Tablet, 20 MG PO DAILY, (Reported) Discontinued Reason: No Longer Taking Entered as Reported by: CASEY MOORE on 06/22/111339 Last Action: Discontinued Fish Oil/Dha/Epa (Fish Oil 1,200 Mg Fish Oil) 1 Each Capsule, 1 EACH PO BID, (Reported) Discontinued Reason: No Longer Taking Entered as Reported by: CASEY MOORE on 06/22/111339 Last Action: Discontinued Furosemide (Furosemide) 40 Mg Tablet, 1 EACH PO TUE-TUE-TUE PRN, (Reported) Discontinued Reason: No Longer Taking Entered as Reported by: CASEY MOORE on 06/22/111339 Last Action: Discontinued Hyoscyamine Sulfate (Levsin-Sl) 0.125 Mg Tab.subl, 0.125 MG SL Q4H Discontinued Reason: No Longer Taking Prescribed by: ALYSSA HUYNH on 03/14/202001 Last Action: Discontinued Lisinopril (Prinivil) 20 Mg Tablet, 20 MG PO DAILY, (Reported) Discontinued Reason: No Longer Taking Entered as Reported by: CASEY MOORE on 06/22/111339 Last Action: Discontinued Metoprolol Tartrate (Metoprolol Tartrate 25 Mg) 25 Mg Tablet, 1 TAB PO BID, (Reported) Discontinued Reason: No Longer Taking Entered as Reported by: CASEY MOORE on 06/22/111339 Last Action: Discontinued Naproxen (Naprosyn) 500 Mg Tablet, 1 EACH PO BID, (Reported) Discontinued Reason: No Longer Taking Entered as Reported by: CASEY MOORE on 06/22/111339 Last Action: Discontinued Niacin (Niaspan) 500 Mg Tablet.sa, 1,500 MG PO DAILY, (Reported) Discontinued Reason: No Longer Taking Entered as Reported by: CASEY MOORE on 06/22/111339 Last Action: Discontinued Ondansetron (Ondansetron Odt) 4 Mg Tab.rapdis, 4 MG PO Q6H PRN for NAUSEA/VOMITING Discontinued Reason: No Longer Taking Prescribed by: ALYSSA HUYNH on 03/14/202001 Last Action: Discontinued Potassium Chloride (Potassium Chloride) 20 Meq Packet, 20 MEQ PO TUE- PRN, (Reported) Discontinued Reason: No Longer Taking Entered as Reported by: CASEY MOORE on 06/22/111339 Last Action: Discontinued Pravastatin Sodium (Pravachol) 80 Mg Tablet, 80 MG PO DAILY, (Reported) Discontinued Reason: No Longer Taking Entered as Reported by: CASEY MOORE on 06/22/111339 Last Action: Discontinued Tramadol Hcl (Tramadol Hcl) 50 Mg Tablet, 50 MG PO DAILY PRN, (Reported) Discontinued Reason: No Longer Taking Entered as Reported by: CASEY MOORE on 06/22/111339 Last Action: Discontinued Physical Exam-Cardiology Physical Exam Vital Signs/I&O 12/29/21 12/29/21 12/29/21 12/29/21 03:38 04:00 04:05 04:14 Temp 36.0 Pulse 49 Resp 22 B/P (MAP) 136/57 (83) 136/57 Pulse Ox 98 O2 Delivery Nasal Cannula Nasal Cannula O2 Flow Rate 4.00 4.00 12/29/21 12/29/21 12/29/21 12/29/21 05:00 06:00 06:44 07:00 Pulse 53 76 62 72 Resp 14 11 9 B/P (MAP) 116/49 (93) 110/52 (69) 106/95 (99) Pulse Ox 98 96 91 O2 Delivery Nasal Cannula Nasal Cannula Nasal Cannula O2 Flow Rate 4.00 4.00 4.00 12/29/21 12/29/21 12/29/21 12/29/21 07:32 07:46 08:00 08:40 Temp 36.0 Pulse 67 64 Resp 13 B/P (MAP) 95/76 (82) 124/60 Pulse Ox 95 O2 Delivery Nasal Cannula Nasal Cannula O2 Flow Rate 4.00 4.00 FiO2 99 12/29/21 12/29/21 12/29/21 12/29/21 09:00 10:00 11:00 11:30 Pulse 71 85 81 Resp 17 12 B/P (MAP) 115/53 (73) 119/56 (77) 103/83 (90) Pulse Ox 94 95 97 O2 Delivery Nasal Cannula Nasal Cannula Nasal Cannula Nasal Cannula O2 Flow Rate 4.00 4.00 4.00 4.00 FiO2 96 12/29/21 12/29/21 12/29/21 12/29/21 12:00 12:00 12:15 13:00 Temp 36.1 Pulse 75 71 74 Resp 10 31 B/P (MAP) 91/74 (80) 106/77 (87) Pulse Ox 98 O2 Delivery Nasal Cannula Nasal Cannula O2 Flow Rate 4.00 4.00 12/29/21 12/29/21 12/29/21 14:00 15:00 15:26 Temp 36.2 Pulse 80 85 Resp 12 B/P (MAP) 127/77 (94) 138/88 (105) Pulse Ox 95 100 O2 Delivery Nasal Cannula Nasal Cannula O2 Flow Rate 4.00 4.00 12/29/21 00:00 Intake Total 200 ml Output Total 0 ml Balance 200 ml Capillary Refill : Constitutional: AAO x 3, well-developed, well-nourished HEENT: PERRL, hearing is well preserved, oral hygience is good Neck: No carotid bruit; carotid pulses are 2 + bilaterally Respiratory: No accessory muscle use, No respiratory distress; chest expansion is symmetric, chest is bilaterally symmetric, rhonchi (scattered) Cardiovascular: regular rate-rhythm; No JVD; S1 and S2, other (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 (reports chronic)) Gastrointestinal: No tender; soft, round, audible bowel sounds Extremities: no lower extremity edema bilateral Neurologic/Psychiatric: grossly intact (moves all extremities) Skin: No rash on exposed areas, No ulcerations on exposed areas Data Review Labs Laboratory Tests 12/28/21 16:01: Troponin I 1.21*H 12/29/21 00:35: Glucometer 128H 12/29/21 04:30: Troponin I 0.321*H, White Blood Count 21.5H, Red Blood Count 3.85, Hemoglobin 11.1L, Hematocrit 35, Mean Corpuscular Volume 90, Mean Corpuscular Hemoglobin 29, Mean Corpuscular Hemoglobin Concent 32, Red Cell Distribution Width 14.0, Platelet Count 424H, Mean Platelet Volume 10.0, Prothrombin Time 14.5, INR Comment 1.1, Sodium Level 140, Potassium Level 2.9L, Chloride Level 105, Carbon Dioxide Level 23, Anion Gap 12, Blood Urea Nitrogen 9, Creatinine 0.64, Estimat Glomerular Filtration Rate 92, BUN/Creatinine Ratio 14, Glucose Level 126H, Ca lcium Level 7.5L, Magnesium Level 2.4 12/29/21 14:40: Potassium Level 3.9 Microbiology 12/28/21 Blood Culture - Preliminary, Resulted Probable Coag Negative Staph A/P-Cardiology Assessment/Admission Diagnosis Mildly elevated troponin - likely Type 2 WA secondary to transient hypotension Abdominal pain and mid ileal inflammation and interloop abscess - management per Surgical and Medical services Hypokalemia Chronic dyspnea 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 She has been evaluated by various surgeons, including Dr. Leong at [facility] in [place], [place], and has been advised to avoid further surgery, she states Sleep apnea for which she is to be on C-PAP therapy, but she has been non compliant - follows with Dr. Chavez Coronary artery disease - with history of left internal mammary artery graft to left anterior descending arteryin December 2007 after she had presented with non-ST elevation myocardial infarction. Surgery was carried out by Dr. Phillips in [place], [place]. - Myocardial perfusion imaging was last carried out in March 2010 and it did not show any significant myocardial ischemia or infarction and left ventricular ejection fraction was calculated to be 74%. - Cardiac catheterization of 06/22/11 showed that the left internal mammary artery graft to distal left anterior descending artery was widely patent. The patient does have proximal left anterior descending artery disease which also subserves a fairly large first diagonal branch, which was not bypassed. However, the distal left anterior descending artery is well protected with the internal mammary artery graft and the patient is currently not reporting angina - MPI of December 2015 showed no evidence of significant myocardial ischemia or infarction. LVEFof 78%6. Echo of April 2012 showed LVEF 55-60% and PASP 35-40. Hypertension Mild peripheral arterial disease on angiography of November [address] Mcginnis. - Leg arterial Doppler of May 2011 showed mild diffuse atherosclerotic disease. There was no evidence of abdominal aortic aneurysm or dissection. Hyperlipidemia - managed by PCP Chronic obstructive pulmonary disease - due to chronic tobaccoism. Mild carotid arterial disease per ultrasonography of September 2013. Discussion and Recomendations Mildly elevated troponin - likely Type 2 WA secondary to hypotension Continue ASA 81 mg daily if ok with Medical services Advise echocardiogram to f/u on valvular status and function H/O CAD with CABG - likely will need further coronary eval with an MPI Replace electrolytes Monitor lab closely Further recs will be based on her hospital course Management of abd pain per Medical services MARTITA GUSTAFSON MD FACP FAC CCDS Dec 29, 2021 15:42
--- NOTE | 2021-12-29 16:45 | Diagnostic Imaging Report ---
PROCEDURE: CT abdomen and pelvis with contrast. TECHNIQUE: Multiple contiguous axial images were obtained through the abdomen and pelvis after administration of intravenous contrast. Auto Exposure Controls were utilized during the CT exam to meet ALARA standards for radiation dose reduction. All CT scans use one or more of the following dose optimizing techniques: Automated exposure control, MA and/or KvP adjustment based on patient size and exam type or iterative reconstruction. INDICATION: Mass. Stricture versus fistula. COMPARISON: Exam is compared with CT abdomen and pelvis one day prior. Single phase postcontrast-enhanced abdominopelvic CT performed with oral contrast administered. FINDINGS: Heterogeneous partly calcified and fat-containing exophytic left renal mass is unchanged from the recent exam and suspect for renal cell carcinoma measuring 3.9 x 2.6 cm. Kidneys are unobstructed. The right kidney is nonfocal aside from a benign Bosniak 1 simple benign cyst off its upper pole. Patient has developed small dependent pleural effusions, slightly greater left. The liver, adrenals, spleen, and pancreas are unremarkable. The bile ducts are nondilated. The gallbladder is unremarkable. There is aortoiliac atherosclerotic vascular ectasia. Long segmental edematous inflammatory thickening of a small bowel loop in the lower abdomen and upper pelvis eccentric to the right redemonstrated with improvements in bowel wall thickening and improvements in proximal dilatation. There is no contrast extravasation and no fistulous disease is documented. This showed no progression. There is no abscess, hematoma, or acute fluid collection. No pneumatosis. No free air. No abscess. Urinary tracts are unobstructed. The uterus, adnexa, and urinary bladder are unremarkable. There is trace pelvic free fluid at the cul-de-sac and right adnexa, stable. IMPRESSION: 1. Improvements in abnormal inflammatory small bowel wall thickening without abscess, obstruction, perforation, or appreciable fistulous disease. Substantial regional inflammation, however, does persist with some reactive mesenteric adenopathy and mesenteric stranding. Trace free fluid without loculation. 2. Mixed fatty soft tissue and calcified exophytic left renal mass, unchanged, suspicious for renal cell carcinoma without evidence for metastases. 3. New small pleural effusions, nonloculated. Dictated by: Dictated on workstation # [id number]
[2021-12-29] MEDS: LOPERAMIDE 2 MG (IMODIUM) TABLET PO PRN ×3 (17:15→22:43)
[2021-12-30] VITALS (17 sets, daily range): BP systolic 97–169; BP diastolic 52–78
[2021-12-30] MEDS ORDERED: SALINE NASAL SPRAY (OCEAN) 45 ML BTL PRN (02:15)
--- NOTE | 2021-12-30 02:15 | Progress Note ---
Standard Progress Note Progress Notes/Assess & Plan Date Seen by a Provider: Dec 30, 2021 Time Seen by a Provider: 02:14 Final Diagnosis c/o nasal stuffiness, gets relief at home with saline spray, will order MD NANO Booth JOSEPH K MD Dec 30, 2021 02:15
[2021-12-30] MEDS: RT-ALBUTEROL SULF 2.5 MG/3 ML PRE-MIX VIAL INH PRN (02:28)
--- NOTE | 2021-12-30 03:17 | Progress Note ---
Standard Progress Note Progress Notes/Assess & Plan Date Seen by a Provider: Dec 30, 2021 Time Seen by a Provider: 03:16 Progress/Assessment & Plan called for increased WOB, RN reports pt sounds wet, will get CXR and if congested will give MD NANO Corbin JOSEPH K MD Dec 30, 2021 03:17
--- NOTE | 2021-12-30 03:58 | Progress Note ---
Standard Progress Note Progress Notes/Assess & Plan Date Seen by a Provider: Dec 30, 2021 Time Seen by a Provider: 03:58 Progress/Assessment & Plan called for increased WOB, RN reports pt sounds wet, will get CXR and if congested will give MD NANO Corbin JOSEPH K MD Dec 30, 2021 03:58
[2021-12-30] MEDS ORDERED: FUROSEMIDE 40 MG/4 ML INJ (LASIX) IVP ONE (04:00)
--- NOTE | 2021-12-30 04:00 | Progress Note ---
Standard Progress Note Progress Notes/Assess & Plan Date Seen by a Provider: Dec 30, 2021 Time Seen by a Provider: 04:00 Progress/Assessment & Plan CXR looks congested, will give IVP Lasix 40 mg SHADE MCGILL MD Dec 30, 2021 04:00
[2021-12-30] MEDS ORDERED: FUROSEMIDE 40 MG/4 ML INJ (LASIX) ONE (04:01)
[2021-12-30] MEDS: NS IV 1000 ML 1,000 ML IV SCH (04:46)
[2021-12-30 05:42] LABS: HEMATOCRIT 35 % (35-52); HEMOGLOBIN 10.8 g/dL (11.5-16.0); MEAN CORPUSCULAR HEMOGLOBIN 28 pg (25-34); MEAN CORPUSCULAR HGB CONC 31 g/dL (32-36); MEAN CORPUSCULAR VOLUME 90 fL (80-99); MEAN PLATELET VOLUME 9.7 fL (9.0-12.2); PLATELET COUNT 428 10^3/uL (130-400)
[2021-12-30 06:01] LABS: POTASSIUM 3.4 MMOL/L (3.6-5.0)
[2021-12-30 06:02] LABS: CALCIUM 7.5 MG/DL (8.5-10.1)
[2021-12-30 06:06] LABS: PHOSPHORUS 2.4 MG/DL (2.3-4.7)
[2021-12-30 06:07] LABS: CREATININE SERUM 0.65 MG/DL (0.60-1.30)
[2021-12-30] MEDS: POTASSIUM CL 10MEQ/50ML IVPB 50 ML IV SCH (06:08)
[2021-12-30 06:09] LABS: MAGNESIUM 2.1 MG/DL (1.6-2.4)
[2021-12-30] MEDS: KCL 20 MEQ TAB (K-DUR) PO SCH (06:09)
[2021-12-30] MEDS: MAGNESIUM 1 GM/100 ML IVPB 100 ML IV SCH (06:11)
[2021-12-30] MEDS: PIPERACILLIN SODIUM/TAZOBACTAM 4.5 GM in NS (IVPB) 100 ML IV SCH ×3 (06:22→23:05)
--- NOTE | 2021-12-30 07:09 | Diagnostic Imaging Report ---
EXAMINATION: Chest 1 view HISTORY: Heart failure COMPARISON: 12/28/2021 FINDINGS: There has been an increase in the now moderate edema. There is a small left effusion. No pneumothorax. Heart size is normal. Median sternotomy wires are aligned. IMPRESSION: 1. Increase in now moderate edema with a new small left effusion. Dictated by: Dictated on workstation # [id number]
[2021-12-30] MEDS ORDERED: KCL 20 MEQ TAB (K-DUR) PO ONE (08:00)
[2021-12-30] MEDS: FLUCONAZOLE 100 MG/50 ML 50 ML IV SCH (08:23)
[2021-12-30] MEDS: ASPIRIN 81 MG CHEW (CHILDREN'S ASA) PO SCH (08:23)
--- NOTE | 2021-12-30 09:25 | Progress Note - Cardiology ---
Cardiology SOAP Progress Note Subjective: Sitting up in bed States she is hungry this morning Reports SOB overnight which has improved following IV Lasix; reports it is not yet back to baseline No c/o CP or palpitations Objective: I&O/Vital Signs 12/30/21 12/31/21 23:43 03:53 Temp 36.2 36.2 Pulse 59 68 Resp 18 18 B/P (MAP) 146/62 (90) 123/56 (78) Pulse Ox 98 99 O2 Delivery Nasal Cannula Nasal Cannula O2 Flow Rate 4.00 4.00 12/31/21 00:00 Intake Total 580 ml Output Total 950 ml Balance -370 ml Weight (Pounds): 211 Weight (Ounces): 0.0 Weight (Calculated Kilograms): 95.579318 Constitutional: AAO x 3, well-developed, well-nourished Respiratory: No accessory muscle use, No respiratory distress; chest expansion is symmetric, chest is bilaterally symmetric, rhonchi (scattered), other (coarse breath sounds) Cardiovascular: regular rate-rhythm; No JVD; S1 and S2, other (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 (reports chronic)) Gastrointestional: No tender; soft, round, audible bowel sounds Extremities: no lower extremity edema bilateral Neurologic/Psychiatric: grossly intact (moves all extremities) Skin: No rash on exposed areas, No ulcerations on exposed areas Results/Procedures: Labs Laboratory Tests 12/31/21 03:08: White Blood Count 5.3, Red Blood Count 3.81, Hemoglobin 10.6L, Hematocrit 35, Mean Corpuscular Volume 91, Mean Corpuscular Hemoglobin 28, Mean Corpuscular Hemoglobin Concent 31L, Red Cell Distribution Width 13.9, Platelet Count 375, Mean Platelet Volume 9.9, Sodium Level 139, Potassium Level 4.4, Chloride Level 100, Carbon Dioxide Level 30, Anion Gap 9, Blood Urea Nitrogen 8, Creatinine 0.62, Estimat Glomerular Filtration Rate 93, BUN/Creatinine Ratio 13, Glucose Level 132H, Calcium Level 7.8L, Phosphorus Level 3.2, Magnesium Level 2.2 Microbiology 12/28/21 Blood Culture - Preliminary, Resulted Gram Negative Rambo Staph, Coag Neg (PIE MAKER) Procedures NAME: KESHIA BOLES [facility] REC#: [id number] PT STATUS: ADM IN : 1945 PHYSICIAN: SHADE MCGILL MD ADMIT DATE: 12/28/21/ICU Signed Date of Exam:12/30/21 CHEST 1 VIEW, AP/PA ONLY EXAMINATION: Chest 1 view HISTORY: Heart failure COMPARISON: 12/28/2021 FINDINGS: There has been an increase in the now moderate edema. There is a small left effusion. No pneumothorax. Heart size is normal. Median sternotomy wires are aligned. IMPRESSION: 1. Increase in now moderate edema with a new small left effusion. Dictated by: Dictated on workstation # [id number] Dict: 12/30/21706 Trans: 12/30/21817 [facility] [id number] Interpreted by: KELL CARRERA MD Electronically signed by: KELL CARRERA MD 12/30/21817 A/P: Assessment: Mildly elevated troponin - likely Type 2 SC secondary to transient hypotension Echocardiogram of 12-29-21 showed LVEF 55-60%. PASP 30-35 mmHg Abdominal pain and mid ileal inflammation and interloop abscess per Dr. 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 She has been evaluated by various surgeons, including Dr. Leong at [facility] in [place], [place], and has been advised to avoid further surgery, she states Sleep apnea for which she is to be on C-PAP therapy, but she has been noncompliant - follows with Dr. Chavez Coronary artery disease - with history of left internal mammary artery graft to left anterior descending arteryin December 2007 after she had presented with non-ST elevation myocardial infarction. Surgery was carried out by Dr. Phillips in [place], [place]. - Myocardial perfusion imaging was last carried out in March 2010 and it did not show any significant myocardial ischemia or infarction and left ventricular ejection fraction was calculated to be 74%. - Cardiac catheterization of 06/22/11 showed that the left internal mammary artery graft to distal left anterior descending artery was widely patent. The patient does have proximal left anterior descending artery disease which also subserves a fairly large first diagonal branch, which was not bypassed. However, the distal left anterior descending artery is well protected with the internal mammary artery graft and the patient is currently not reporting angina - MPI of December 2015 showed no evidence of significant myocardial ischemia or infarction. LVEFof 78%6. Echo of April 2012 showed LVEF 55-60% and PASP 35-40. Hypertension Mild peripheral arterial disease on angiography of November [address] Mcginnis. - Leg arterial Doppler of May 2011 showed mild diffuse atherosclerotic disease. There was no evidence of abdominal aortic aneurysm or dissection. Hyperlipidemia - managed by PCP Chronic obstructive pulmonary disease - due to chronic tobaccoism. Mild carotid arterial disease per ultrasonography of September 2013. Plan: Mildly elevated troponin - likely Type 2 SC secondary to hypotension Continue ASA 81 mg daily if ok with Medical services H/O CAD with CABG - likely will need further coronary eval with an MPI when current non-cardiac issue has improved Replace electrolytes Monitor lab closely Further recs will be based on her hospital course DARRIUS ARORA Dec 30, 2021 09:25
--- NOTE | 2021-12-30 10:24 | Progress Note - Hospitalist ---
Subjective HPI/CC On Admission Date Seen by Provider: Dec 30, 2021 Patient 76-year-old female with past medical history of coronary artery disease status post CABG, renal cell carcinoma, hypertension, COPD who presented to the emergency department due to generalized weakness. She reports for the past couple weeks she has not felt well and has become weaker and weaker every day. Yesterday she was unable to get out of bed prompting her to seek evaluation in the emergency department. She was found to be febrile and complained of abdominal pain so CT of her abdomen was obtained. This revealed possible abdominal abscess secondary to inflammatory bowel disease. Patient reports a history of this in May of last year. I did discuss this with her primary care doctor who states it was actually May 2020. CT also revealed possible endometrial thickening and recurrence of renal cell carcinoma. Patient states that she has known about the spot in her kidney for a while and chose not to get anything else done. She was also found to have an elevated troponin from 0.8-1.2 yesterday. She was admitted to stepdown but became hypotensive and was transferred to the ICU for pressors. Overall she reports feeling better and denies any further abdominal pain. She is requesting something to eat instead. Subjective/Events-last exam Pt reports doing well. No complaints. Ordered breakfast and waiting to eat. RN at bedside reports overnight she got SOB and got lasix. patient states breathing much better since then. Focused Exam Lactate Level 12/28/21 12:57: Lactic Acid Level 4.32*H 12/28/21 15:24: Lactic Acid Level 1.49 Objective Exam Vital Signs Vital Signs Date Time Temp Pulse Resp B/P (MAP) Pulse Ox O2 Delivery O2 Flow Rate FiO2 12/30/21 09:00 91 15 98/65 (76) 97 Nasal Cannula 5.00 12/30/21 07:49 36.4 12/30/21 07:30 96 Capillary Refill : General Appearance: No Apparent Distress, WD/WN Respiratory: Lungs Clear, No Respiratory Distress Cardiovascular: Regular Rate, Rhythm, No Murmur Gastrointestinal: Normal Bowel Sounds, Non Tender, Soft Neurologic/Psychiatric: Alert, Oriented x3 Results/Procedures Lab Laboratory Tests 12/29/21 14:40 12/30/21 05:28 Patient resulted labs reviewed. Assessment/Plan Assessment and Plan Assess & Plan/Chief Complaint Septic Shock- shock resolved Intrabdominal abscess with fever and leukocytosis on arrival Lactic acidosis resolved and now off pressors Continue on IV abx Surgery consulted, appreciate recs Await cultures, likely contaminated NSTEMI CAD s/p CABG HTN Cardiology consulted, appreciate recs Troponin trended down Continue ASA Has not followed with CTS or Cardiology in years h/o Renal Cell Suresh Last saw [facility] in 2004 Was told she may have had a recurrence but did not pursue treatment (though states it was her right kidney at the time) Lesion on left kidney concerning for recurrence Will discuss with Radiology to see if then can compare images to previous COPD Chronic respiratory failure Baseline 4lpm home oxygen need MAT protocol DVT ppx: Lovenox Critical Care Critically Ill Patient Diagnosis/Problems Diagnosis/Problems (1) NSTEMI (non-ST elevated myocardial infarction) (2) Renal cell carcinoma (3) HTN (hypertension) (4) CAD (coronary artery disease) (5) Hx of CABG (6) COPD (chronic obstructive pulmonary disease) (7) Chronic respiratory failure (8) Hypokalemia (9) Septic shock (10) Generalized weakness Status: Acute (11) Elevated troponin Status: Acute (12) Abdominal abscess Status: Acute LUKE BYERS MD Dec 30, 2021 10:24
[2021-12-30] MEDS ORDERED: ENOXAPARIN 40 MG/0.4 ML (LOVENOX) SYR SQ SCH (10:30)
--- NOTE | 2021-12-30 11:50 | Progress Note - Cardiology ---
Cardiology SOAP Progress Note Subjective: No cp or palp or syncope Shortness of breath stable Gen weakness and malaise No n/v Has diarrhea today Objective: I&O/Vital Signs 12/30/21 12/30/21 12/30/21 12/30/21 00:00 00:00 01:00 02:00 Temp 36.5 Pulse 84 73 98 Resp 18 B/P (MAP) 130/60 (91) 108/60 (83) 169/78 (108) Pulse Ox 96 95 92 O2 Delivery Nasal Cannula Nasal Cannula Nasal Cannula O2 Flow Rate 3.00 3.00 3.00 12/30/21 12/30/21 12/30/21 12/30/21 02:30 02:46 03:00 03:40 Pulse 73 92 B/P (MAP) 117/59 (91) Pulse Ox 91 92 O2 Delivery Nasal Cannula Nasal Cannula Nasal Cannula O2 Flow Rate 6.00 5.00 5.00 FiO2 94 12/30/21 12/30/21 12/30/21 12/30/21 04:00 04:00 04:10 05:00 Temp 36.1 36.1 Pulse 82 76 Resp 28 17 B/P (MAP) 113/57 (89) 109/54 (79) Pulse Ox 97 95 O2 Delivery Nasal Cannula Nasal Cannula O2 Flow Rate 5.00 5.00 12/30/21 12/30/21 12/30/21 12/30/21 06:00 07:00 07:00 07:30 Pulse 86 72 85 Resp 29 9 B/P (MAP) 128/70 (89) 128/69 (88) Pulse Ox 97 91 O2 Delivery Nasal Cannula Nasal Cannula Nasal Cannula O2 Flow Rate 5.00 5.00 4.00 FiO2 96 12/30/21 12/30/21 12/30/21 12/30/21 07:49 08:00 09:00 10:00 Temp 36.4 Pulse 67 91 93 Resp 13 15 8 B/P (MAP) 124/56 (78) 98/65 (76) 104/76 (85) Pulse Ox 95 97 95 O2 Delivery Nasal Cannula Nasal Cannula Nasal Cannula O2 Flow Rate 5.00 5.00 5.00 12/30/21 12/30/21 12/30/21 11:00 11:01 11:27 Temp 36.5 Pulse 75 Resp 19 B/P (MAP) 97/52 (67) Pulse Ox 96 O2 Delivery Nasal Cannula Nasal Cannula O2 Flow Rate 5.00 4.00 FiO2 97 12/29/21 23:59 Intake Total 2030 ml Balance 2030 ml Weight (Pounds): 211 Weight (Ounces): 0.0 Weight (Calculated Kilograms): 95.914155 Constitutional: AAO x 3, well-developed, well-nourished Respiratory: No accessory muscle use, No respiratory distress; chest expansion is symmetric, chest is bilaterally symmetric, rhonchi (scattered), other (coarse breath sounds) Cardiovascular: regular rate-rhythm; No JVD; S1 and S2, other (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 (reports chronic)) Gastrointestional: No tender; soft, round, audible bowel sounds Extremities: no lower extremity edema bilateral Neurologic/Psychiatric: other (moves all limbs equally) Skin: No rash on exposed areas, No ulcerations on exposed areas Results/Procedures: Labs Laboratory Tests 12/29/21 14:40: Potassium Level 3.9 12/30/21 02:06: Glucometer 101 12/30/21 05:28: Potassium Level 3.4L, White Blood Count 9.0, Red Blood Count 3.84, Hemoglobin 10.8L, Hematocrit 35, Mean Corpuscular Volume 90, Mean Corpuscular Hemoglobin 28, Mean Corpuscular Hemoglobin Concent 31L, Red Cell Distribution Width 14.3, Platelet Count 428H, Mean Platelet Volume 9.7, Sodium Level 138, Chloride Level 103, Carbon Dioxide Level 25, Anion Gap 10, Blood Urea Nitrogen 7, Creatinine 0.65, Estimat Glomerular Filtration Rate 92, BUN/Creatinine Ratio 11, Glucose Level 87, Calcium Level 7.5L, Phosphorus Level 2.4, Magnesium Level 2.1 Microbiology 12/28/21 Blood Culture - Preliminary, Resulted Staph, Coag Neg (NON DESTRUCTIVE EVALUATION TECHNICIAN) Laboratory Tests 12/28/21 12:57 12/29/21 04:30 12/29/21 14:40 12/30/21 05:28 A/P: Assessment: Mildly elevated troponin - likely Type 2 MN secondary to transient hypotension Echocardiogram of 12-29-21 showed LVEF 55-60%. PASP 30-35 mmHg Abdominal pain and mid ileal inflammation and interloop abscess per Dr. 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 She has been evaluated by various surgeons, including Dr. Leong at [facility] in [place], [place], and has been advised to avoid further surgery, she states Sleep apnea for which she is to be on C-PAP therapy, but she has been noncompliant - follows with Dr. Chavez Coronary artery disease - with history of left internal mammary artery graft to left anterior descending arteryin December 2007 after she had presented with non-ST elevation myocardial infarction. Surgery was carried out by Dr. Phillips in [place], [place]. - Myocardial perfusion imaging was last carried out in March 2010 and it did not show any significant myocardial ischemia or infarction and left ventricular ejection fraction was calculated to be 74%. - Cardiac catheterization of 06/22/11 showed that the left internal mammary artery graft to distal left anterior descending artery was widely patent. The patient does have proximal left anterior descending artery disease which also subserves a fairly large first diagonal branch, which was not bypassed. However, the distal left anterior descending artery is well protected with the internal mammary artery graft and the patient is currently not reporting angina - MPI of December 2015 showed no evidence of significant myocardial ischemia or infarction. LVEFof 78%6. Echo of April 2012 showed LVEF 55-60% and PASP 35-40. Hypertension Mild peripheral arterial disease on angiography of November [address] Mcginnis. - Leg arterial Doppler of May 2011 showed mild diffuse atherosclerotic disease. There was no evidence of abdominal aortic aneurysm or dissection. Hyperlipidemia - managed by PCP Chronic obstructive pulmonary disease - due to chronic tobaccoism. Mild carotid arterial disease per ultrasonography of September 2013. Plan: Mildly elevated troponin - likely Type 2 MN secondary to hypotension Continue ASA 81 mg daily if ok with Medical services H/O CAD with CABG - likely will need further coronary eval with an MPI when current non-cardiac issue has improved Replace electrolytes Monitor lab closely Further recs will be based on her hospital course MARTITA GUSTAFSON MD FACP [facility] Dec 30, 2021 11:50
[2021-12-30] MEDS: NOREPINEPHRINE 8 MG/250 ML 250 ML IV SCH (12:15)
--- NOTE | 2021-12-30 14:02 | Progress Note ---
Subjective Date Seen by a Provider: Dec 30, 2021 Time Seen by a Provider: 14:00 Subjective/Events-last exam doing better. tolerating diet. CT with oral contrast better dilineate pathology. likely segment crohn;s enteritis however no obstruction/stricture/abscess. Focused Exam Lactate Level 12/28/21 12:57: Lactic Acid Level 4.32*H 12/28/21 15:24: Lactic Acid Level 1.49 Objective Exam Vital Signs Date Time Temp Pulse Resp B/P (MAP) Pulse Ox O2 Delivery O2 Flow Rate FiO2 12/30/21 13:42 36.1 85 22 122/72 (89) 96 Nasal Cannula 4.50 12/30/21 12:30 82 12/30/21 12:15 81 127/57 12/30/21 12:00 81 30 127/57 (80) 96 Nasal Cannula 5.00 12/30/21 11:27 36.5 12/30/21 11:01 Nasal Cannula 4.00 97 12/30/21 11:00 75 19 97/52 (67) 96 Nasal Cannula 5.00 12/30/21 10:00 93 8 104/76 (85) 95 Nasal Cannula 5.00 12/30/21 09:00 91 15 98/65 (76) 97 Nasal Cannula 5.00 12/30/21 08:00 67 13 124/56 (78) 95 Nasal Cannula 5.00 12/30/21 07:49 36.4 12/30/21 07:30 Nasal Cannula 4.00 96 12/30/21 07:00 85 12/30/21 07:00 72 9 128/69 (88) 91 Nasal Cannula 5.00 12/30/21 06:00 86 29 128/70 (89) 97 Nasal Cannula 5.00 12/30/21 05:00 76 17 109/54 (79) 95 Nasal Cannula 5.00 12/30/21 04:10 36.1 12/30/21 04:00 82 28 113/57 (89) 97 Nasal Cannula 5.00 12/30/21 04:00 36.1 12/30/21 03:40 Nasal Cannula 5.00 94 12/30/21 03:00 92 117/59 (91) 92 Nasal Cannula 5.00 12/30/21 02:46 73 12/30/21 02:30 91 Nasal Cannula 6.00 12/30/21 02:00 98 169/78 (108) 92 Nasal Cannula 3.00 12/30/21 01:00 73 108/60 (83) 95 Nasal Cannula 3.00 12/30/21 00:00 36.5 12/30/21 00:00 84 18 130/60 (91) 96 Nasal Cannula 3.00 12/29/21 23:45 36.5 12/29/21 23:20 Nasal Cannula 4.00 98 12/29/21 23:00 84 133/56 (72) 94 Nasal Cannula 3.00 12/29/21 22:00 76 20 114/45 (68) 93 Nasal Cannula 3.00 12/29/21 21:05 89 151/74 (100) 91 Nasal Cannula 3.00 12/29/21 20:00 35.9 12/29/21 20:00 Nasal Cannula 4.00 98 12/29/21 20:00 85 131/55 (89) 96 Nasal Cannula 3.00 12/29/21 19:00 82 12/29/21 19:00 79 129/62 (97) 97 Nasal Cannula 3.00 12/29/21 18:00 76 123/72 (89) 97 Nasal Cannula 4.00 12/29/21 17:00 75 123/59 (80) 97 Nasal Cannula 4.00 12/29/21 16:00 Nasal Cannula 4.00 98 12/29/21 16:00 83 9 106/59 (75) 97 Nasal Cannula 4.00 12/29/21 15:26 36.2 12/29/21 15:00 85 138/88 (105) 100 Nasal Cannula 4.00 12/29/21 14:00 80 12 127/77 (94) 95 Nasal Cannula 4.00 I & O 12/30/21 06:59 Intake Total 3280 ml Output Total 1800 ml Balance 1480 ml Capillary Refill : General Appearance: No Apparent Distress HEENT: PERRL/EOMI Neck: Full Range of Motion Respiratory: Rhonci, Wheezing Cardiovascular: Regular Rate, Rhythm Gastrointestinal: normal bowel sounds, soft, tenderness Extremity: Normal Capillary Refill Neurologic/Psychiatric: Alert, Oriented x3 Skin: Normal Color Lymphatic: No Adenopathy Results Lab Laboratory Tests 12/29/21 14:40: Potassium Level 3.9 12/30/21 02:06: Glucometer 101 12/30/21 05:28: Potassium Level 3.4L, White Blood Count 9.0, Red Blood Count 3.84, Hemoglobin 10.8L, Hematocrit 35, Mean Corpuscular Volume 90, Mean Corpuscular Hemoglobin 28, Mean Corpuscular Hemoglobin Concent 31L, Red Cell Distribution Width 14.3, Platelet Count 428H, Mean Platelet Volume 9.7, Sodium Level 138, Chloride Level 103, Carbon Dioxide Level 25, Anion Gap 10, Blood Urea Nitrogen 7, Creatinine 0.65, Estimat Glomerular Filtration Rate 92, BUN/Creatinine Ratio 11, Glucose Level 87, Calcium Level 7.5L, Phosphorus Level 2.4, Magnesium Level 2.1 Microbiology 12/28/21 Blood Culture - Preliminary, Resulted Caty Otto Neg (DIRECTOR COUNCIL ON AGING) Assessment/Plan Assessment/Plan Assess & Plan/Chief Complaint crohn's enteritis w/o complications. start steroids. will need tapering doses once discharged. 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 will need reeval urologist regarding possible recurrent let renal cell ca. SAFIA GONZALEZ MD Dec 30, 2021 14:02
[2021-12-30] MEDS: HYDROCORTISONE 100 MG/2 ML (Solu-CORTEF) VIAL IV SCH ×2 (14:39→21:13)
[2021-12-30] MEDS ORDERED: HYDROcodone/APAP 7.5 MG/325 MG (LORTAB, LORCET PLUS) TABLET PO PRN (15:30)
--- NOTE | 2021-12-30 15:42 | Tele-ICU Progress Note ---
Subjective Date Seen by a Provider: Dec 30, 2021 Time Seen by a Provider: 09:50 Subjective/Events-last exam (Tele-ICU Physician , Progress Note ) Available chart/ vitals / labs / Images reviewed Video assessment done using teleICU camera, rest of exam as per RN Discussed with RN , EXAM PER RN Events overnight : Afebrile Drips: Pressors: , hemodynamically stable Consultants: Hospital course: (12/29) 76/F admitted for Sepsis possible source of abdominal wall abcess from surgical wound. A/P Ileal inflammation as well as interloop abscess, as per SX - suspected undiagnosed Crohn's with possible fistula within the area of the small bowel - additional images pending -diagnostic laparoscopy as well as a resection planned - cont abx Mildly elevated troponin, h/o CABG - likely Type 2 MO secondary to transient hypotension -ECHO 12/2021 EF 55% , RVSP 35 Dyspnea - CTA 12/29 - no PE , no PNA or effusion\\ - probably to COPD ( with emphesematous changes on CT ) - cont br-dilators VENKAT - CPAP - noncompliant Irregular soft tissue, fat and fluid lesion left kidney with calcifications - f/up and w/up as per PCP Lines : (Central Line Necessity Reviewed) Hernandez: OG: Nutrition: Analgesia: Anxiety/ delirium VTE Prophylaxis: Stress Ulcer Prophylaxis: na Plans in collaboration with bedside consultants and IM MDs. Discussed with RN to reach out if any questions or concerns A total of 31 minutes of critical care time was devoted to this patient today, required to treat and/or prevent further deterioration of critical care condition ( as above) . Sepsis Event Evaluation Height, Weight, BMI Height: 5'3.00" Weight: 211lbs. 0.0oz. 95.939575op; 29.16 BMI Method: Focused Exam Lactate Level 12/28/21 12:57: Lactic Acid Level 4.32*H 12/28/21 15:24: Lactic Acid Level 1.49 Exam Exam Patient acknowledged, consented, and participated in this virtual visit which was conducted using real time audio/video Vital Signs Date Time Temp Pulse Resp B/P (MAP) Pulse Ox O2 Delivery O2 Flow Rate FiO2 12/30/21 15:20 37.5 85 18 144/61 (88) 95 Nasal Cannula 3.50 12/30/21 13:42 36.1 85 22 122/72 (89) 96 Nasal Cannula 4.50 12/30/21 12:30 82 12/30/21 12:15 81 127/57 12/30/21 12:00 81 30 127/57 (80) 96 Nasal Cannula 5.00 12/30/21 11:27 36.5 12/30/21 11:01 Nasal Cannula 4.00 97 12/30/21 11:00 75 19 97/52 (67) 96 Nasal Cannula 5.00 12/30/21 10:00 93 8 104/76 (85) 95 Nasal Cannula 5.00 12/30/21 09:00 91 15 98/65 (76) 97 Nasal Cannula 5.00 12/30/21 08:00 67 13 124/56 (78) 95 Nasal Cannula 5.00 12/30/21 07:49 36.4 12/30/21 07:30 Nasal Cannula 4.00 96 12/30/21 07:00 85 12/30/21 07:00 72 9 128/69 (88) 91 Nasal Cannula 5.00 12/30/21 06:00 86 29 128/70 (89) 97 Nasal Cannula 5.00 12/30/21 05:00 76 17 109/54 (79) 95 Nasal Cannula 5.00 12/30/21 04:10 36.1 12/30/21 04:00 82 28 113/57 (89) 97 Nasal Cannula 5.00 12/30/21 04:00 36.1 12/30/21 03:40 Nasal Cannula 5.00 94 12/30/21 03:00 92 117/59 (91) 92 Nasal Cannula 5.00 12/30/21 02:46 73 12/30/21 02:30 91 Nasal Cannula 6.00 12/30/21 02:00 98 169/78 (108) 92 Nasal Cannula 3.00 12/30/21 01:00 73 108/60 (83) 95 Nasal Cannula 3.00 12/30/21 00:00 36.5 12/30/21 00:00 84 18 130/60 (91) 96 Nasal Cannula 3.00 12/29/21 23:45 36.5 12/29/21 23:20 Nasal Cannula 4.00 98 12/29/21 23:00 84 133/56 (72) 94 Nasal Cannula 3.00 12/29/21 22:00 76 20 114/45 (68) 93 Nasal Cannula 3.00 12/29/21 21:05 89 151/74 (100) 91 Nasal Cannula 3.00 12/29/21 20:00 35.9 12/29/21 20:00 Nasal Cannula 4.00 98 12/29/21 20:00 85 131/55 (89) 96 Nasal Cannula 3.00 12/29/21 19:00 82 12/29/21 19:00 79 129/62 (97) 97 Nasal Cannula 3.00 12/29/21 18:00 76 123/72 (89) 97 Nasal Cannula 4.00 12/29/21 17:00 75 123/59 (80) 97 Nasal Cannula 4.00 12/29/21 16:00 Nasal Cannula 4.00 98 12/29/21 16:00 83 9 106/59 (75) 97 Nasal Cannula 4.00 I & O 12/30/21 07:00 Intake Total 3280 ml Output Total 1800 ml Balance 1480 ml Height & Weight Height: 5'3.00" Weight: 211lbs. 0.0oz. 95.125740rs; 29.16 BMI Method: General Appearance: No Apparent Distress HEENT: PERRL/EOMI Neck: Full Range of Motion Respiratory: Rhonci, Wheezing Cardiovascular: Regular Rate, Rhythm Gastrointestinal: normal bowel sounds, soft, tenderness Extremity: Normal Capillary Refill Neurologic/Psychiatric: Alert, Oriented x3 Skin: Normal Color Lymphatic: No Adenopathy Results Lab Laboratory Tests 12/29/21 04:30 12/29/21 14:40 12/30/21 05:28 Assessment/Plan Assessment/Plan 1 MITESH BAKER MD Dec 30, 2021 15:42
[2021-12-30] MEDS ORDERED: MAGIC MOUTHWASH, ADULT 155 ML BOTTLE PO SCH (17:00)
[2021-12-30] MEDS: MAGIC MOUTHWASH (ADULT) PO SCH ×8 (17:46→19:47)
[2021-12-31 03:35] LABS: HEMATOCRIT 35 % (35-52); HEMOGLOBIN 10.6 g/dL (11.5-16.0); MEAN CORPUSCULAR HEMOGLOBIN 28 pg (25-34); MEAN CORPUSCULAR HGB CONC 31 g/dL (32-36); MEAN CORPUSCULAR VOLUME 91 fL (80-99); MEAN PLATELET VOLUME 9.9 fL (9.0-12.2); PLATELET COUNT 375 10^3/uL (130-400); WHITE BLOOD COUNT 5.3 10^3/uL (4.3-11.0)
[2021-12-31 03:53] VITALS: BP 123/56
[2021-12-31 03:54] LABS: POTASSIUM 4.4 MMOL/L (3.6-5.0)
[2021-12-31 03:55] LABS: CALCIUM 7.8 MG/DL (8.5-10.1)
[2021-12-31 03:59] LABS: PHOSPHORUS 3.2 MG/DL (2.3-4.7)
[2021-12-31 04:00] LABS: CREATININE SERUM 0.62 MG/DL (0.60-1.30)
[2021-12-31 04:02] LABS: MAGNESIUM 2.2 MG/DL (1.6-2.4)
[2021-12-31 04:58] LABS: POTASSIUM 4.4 MMOL/L (3.6-5.0)
[2021-12-31 05:05] LABS: MAGNESIUM 2.2 MG/DL (1.6-2.4)
[2021-12-31] MEDS: KCL 20 MEQ TAB (K-DUR) PO SCH (05:17)
[2021-12-31] MEDS: MAGNESIUM 1 GM/100 ML IVPB 100 ML IV SCH (05:17)
[2021-12-31] MEDS: POTASSIUM CL 10MEQ/50ML IVPB 50 ML IV SCH (05:17)
[2021-12-31] MEDS: HYDROCORTISONE 100 MG/2 ML (Solu-CORTEF) VIAL IV SCH ×3 (06:15→21:38)
[2021-12-31] MEDS: PIPERACILLIN SODIUM/TAZOBACTAM 4.5 GM in NS (IVPB) 100 ML IV SCH ×2 (06:48→14:14)
--- NOTE | 2021-12-31 07:15 | Physical Therapy Progress Note ---
Therapy Progress Note PT continues to require new orders to initiate therapy. Will contact [facility]. WAYNE TOSCANO PT Dec 31, 2021 07:15
[2021-12-31 08:43] VITALS: BP 139/63
[2021-12-31] MEDS: ASPIRIN 81 MG CHEW (CHILDREN'S ASA) PO SCH (08:49)
--- NOTE | 2021-12-31 08:49 | Progress Note - Cardiology ---
Cardiology SOAP Progress Note Subjective: Up to recliner States breathing continues to improve - reports productive cough No c/o CP or palpitations No c/o abd discomfort Objective: I&O/Vital Signs 12/31/21 01/01/22 01/01/22 01/01/22 23:57 04:15 07:40 08:01 Temp 36.2 36.0 36.4 Pulse 61 57 62 Resp 18 18 20 B/P (MAP) 122/70 (87) 135/63 (87) 141/81 (101) Pulse Ox 100 98 95 O2 Delivery Nasal Cannula Nasal Cannula Nasal Cannula Nasal Cannula O2 Flow Rate 4.00 4.00 4.00 4.00 12/31/21 23:59 Intake Total 850 ml Output Total 425 ml Balance 425 ml Weight (Pounds): 211 Weight (Ounces): 0.0 Weight (Calculated Kilograms): 95.953803 Constitutional: AAO x 3, well-developed, well-nourished Respiratory: No accessory muscle use, No respiratory distress; chest expansion is symmetric, chest is bilaterally symmetric, rhonchi (scattered), other (coarse breath sounds) Cardiovascular: regular rate-rhythm; No JVD; S1 and S2, other (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 (reports chronic)) Gastrointestional: No tender; soft, round, audible bowel sounds Extremities: no lower extremity edema bilateral Neurologic/Psychiatric: other (moves all limbs equally) Skin: No rash on exposed areas, No ulcerations on exposed areas Results/Procedures: Labs Laboratory Tests 01/01/22 05:32: White Blood Count 9.5, Red Blood Count 3.76L, Hemoglobin 10.5L, Hematocrit 34L, Mean Corpuscular Volume 92, Mean Corpuscular Hemoglobin 28, Mean Corpuscular Hemoglobin Concent 31L, Red Cell Distribution Width 13.9, Platelet Count 401H, Mean Platelet Volume 10.1, Sodium Level 138, Potassium Level 4.0, Chloride Level 99, Carbon Dioxide Level 30, Anion Gap 9, Blood Urea Nitrogen 9, Creatinine 0.61, Estimat Glomerular Filtration Rate 93, BUN/Creatinine Ratio 15, Glucose Level 127H, Calcium Level 8.0L, Phosphorus Level 2.2L, Magnesium Level 2.1 Microbiology 12/30/21 MRSA Screen - Final, Complete MRSA not isolated 12/28/21 Blood Culture - Preliminary, Resulted Gram Negative Rambo Staphylococcus capitis Culture In Progress A/P: Assessment: Mildly elevated troponin - likely Type 2 [place] secondary to transient hypotension Echocardiogram of 12-29-21 showed LVEF 55-60%. PASP 30-35 mmHg Abdominal pain and mid ileal inflammation and interloop abscess per Dr. 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 She has been evaluated by various surgeons, including Dr. Leong at [facility] in [place], [place], and has been advised to avoid further surgery, she states Sleep apnea for which she is to be on C-PAP therapy, but she has been noncompliant - follows with Dr. Chavez Coronary artery disease - with history of left internal mammary artery graft to left anterior descending arteryin December 2007 after she had presented with non-ST elevation myocardial infarction. Surgery was carried out by Dr. Phillips in [place], [place]. - Myocardial perfusion imaging was last carried out in March 2010 and it did not show any significant myocardial ischemia or infarction and left ventricular ejection fraction was calculated to be 74%. - Cardiac catheterization of 06/22/11 showed that the left internal mammary artery graft to distal left anterior descending artery was widely patent. The patient does have proximal left anterior descending artery disease which also subserves a fairly large first diagonal branch, which was not bypassed. However, the distal left anterior descending artery is well protected with the internal mammary artery graft and the patient is currently not reporting angina - MPI of December 2015 showed no evidence of significant myocardial ischemia or infarction. LVEFof 78%6. Echo of April 2012 showed LVEF 55-60% and PASP 35-40. Hypertension - controlled Mild peripheral arterial disease on angiography of November [address] Mcginnis. - Leg arterial Doppler of May 2011 showed mild diffuse atherosclerotic disease. There was no evidence of abdominal aortic aneurysm or dissection. Hyperlipidemia - managed by PCP Chronic obstructive pulmonary disease - due to chronic tobaccoism. Mild carotid arterial disease per ultrasonography of September 2013. Plan: Mildly elevated troponin - likely Type 2 IL secondary to hypotension Continue ASA 81 mg daily if ok with Medical services H/O CAD with CABG - likely will need further coronary eval with an MPI when current non-cardiac issue has improved Replace electrolytes Monitor lab closely DARRIUS ARORA Dec 31, 2021 08:49
[2021-12-31] MEDS: MAGIC MOUTHWASH (ADULT) PO SCH ×16 (08:50→19:22)
[2021-12-31] MEDS: FLUCONAZOLE 100 MG/50 ML 50 ML IV SCH (10:00)
--- NOTE | 2021-12-31 10:49 | Progress Note - Cardiology ---
Cardiology SOAP Progress Note Subjective: Feels better today No cp or palp or syncope or shortness of breath No n/v/d Objective: I&O/Vital Signs 12/30/21 12/31/21 12/31/21 23:43 03:53 08:43 Temp 36.2 36.2 36.3 Pulse 59 68 68 Resp 18 22 B/P (MAP) 146/62 (90) 123/56 (78) 139/63 (88) Pulse Ox 98 99 95 O2 Delivery Nasal Cannula Nasal Cannula Nasal Cannula O2 Flow Rate 4.00 4.00 4.00 12/31/21 00:00 Intake Total 580 ml Output Total 950 ml Balance -370 ml Weight (Pounds): 211 Weight (Ounces): 0.0 Weight (Calculated Kilograms): 95.690436 Constitutional: AAO x 3, well-developed, well-nourished Respiratory: No accessory muscle use, No respiratory distress; chest expansion is symmetric, chest is bilaterally symmetric, rhonchi (scattered), other (coarse breath sounds) Cardiovascular: regular rate-rhythm; No JVD; S1 and S2, other (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 (reports chronic)) Gastrointestional: No tender; soft, round, audible bowel sounds Extremities: no lower extremity edema bilateral Neurologic/Psychiatric: other (moves all limbs equally) Skin: No rash on exposed areas, No ulcerations on exposed areas Results/Procedures: Labs Laboratory Tests 12/31/21 03:08: White Blood Count 5.3, Red Blood Count 3.81, Hemoglobin 10.6L, Hematocrit 35, Mean Corpuscular Volume 91, Mean Corpuscular Hemoglobin 28, Mean Corpuscular Hemoglobin Concent 31L, Red Cell Distribution Width 13.9, Platelet Count 375, Mean Platelet Volume 9.9, Sodium Level 139, Potassium Level 4.4, Chloride Level 100, Carbon Dioxide Level 30, Anion Gap 9, Blood Urea Nitrogen 8, Creatinine 0.62, Estimat Glomerular Filtration Rate 93, BUN/Creatinine Ratio 13, Glucose Level 132H, Calcium Level 7.8L, Phosphorus Level 3.2, Magnesium Level 2.2 Microbiology 12/28/21 Blood Culture - Preliminary, Resulted Gram Negative Rambo Staph, Coag Neg ([facility]) Laboratory Tests 12/29/21 14:40 12/30/21 05:28 12/31/21 03:08 A/P: Assessment: Mildly elevated troponin - likely Type 2 [place] secondary to transient hypotension Echocardiogram of 12-29-21 showed LVEF 55-60%. PASP 30-35 mmHg Abdominal pain and mid ileal inflammation and interloop abscess per Dr. 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 She has been evaluated by various surgeons, including Dr. Leong at [facility] in [place], [place], and has been advised to avoid further surgery, she states Sleep apnea for which she is to be on C-PAP therapy, but she has been noncompliant - follows with Dr. Chavez Coronary artery disease - with history of left internal mammary artery graft to left anterior descending arteryin December 2007 after she had presented with non-ST elevation myocardial infarction. Surgery was carried out by Dr. Phillips in [place], [place]. - Myocardial perfusion imaging was last carried out in March 2010 and it did not show any significant myocardial ischemia or infarction and left ventricular ejection fraction was calculated to be 74%. - Cardiac catheterization of 06/22/11 showed that the left internal mammary artery graft to distal left anterior descending artery was widely patent. The patient does have proximal left anterior descending artery disease which also subserves a fairly large first diagonal branch, which was not bypassed. However, the distal left anterior descending artery is well protected with the internal mammary artery graft and the patient is currently not reporting angina - MPI of December 2015 showed no evidence of significant myocardial ischemia or infarction. LVEFof 78%6. Echo of April 2012 showed LVEF 55-60% and PASP 35-40. Hypertension - controlled Mild peripheral arterial disease on angiography of November [address] Mcginnis. - Leg arterial Doppler of May 2011 showed mild diffuse atherosclerotic disease. There was no evidence of abdominal aortic aneurysm or dissection. Hyperlipidemia - managed by PCP Chronic obstructive pulmonary disease - due to chronic tobaccoism. Mild carotid arterial disease per ultrasonography of September 2013. Plan: Mildly elevated troponin - likely Type 2 NH secondary to hypotension Continue ASA 81 mg daily if ok with Medical services H/O CAD with CABG - likely will need further coronary eval with an MPI when current non-cardiac issue has improved Replace electrolytes Monitor lab closely MARTITA GUSTAFSON MD FACP FAC CCDS Dec 31, 2021 10:49
[2021-12-31 11:34] VITALS: BP 127/67
--- NOTE | 2021-12-31 12:02 | Progress Note - Hospitalist ---
Subjective HPI/CC On Admission Date Seen by Provider: Dec 31, 2021 Patient 76-year-old female with past medical history of coronary artery disease status post CABG, renal cell carcinoma, hypertension, COPD who presented to the emergency department due to generalized weakness. She reports for the past couple weeks she has not felt well and has become weaker and weaker every day. Yesterday she was unable to get out of bed prompting her to seek evaluation in the emergency department. She was found to be febrile and complained of abdominal pain so CT of her abdomen was obtained. This revealed possible abdominal abscess secondary to inflammatory bowel disease. Patient reports a history of this in May of last year. I did discuss this with her primary care doctor who states it was actually May 2020. CT also revealed possible endometrial thickening and recurrence of renal cell carcinoma. Patient states that she has known about the spot in her kidney for a while and chose not to get anything else done. She was also found to have an elevated troponin from 0.8-1.2 yesterday. She was admitted to stepdown but became hypotensive and was transferred to the ICU for pressors. Overall she reports feeling better and denies any further abdominal pain. She is requesting something to eat instead. Subjective/Events-last exam Pt reports doing well. No complaints. Eating well. Discussed imaging results and need to compare to previous. She is hopeful to go home soon to be with her puppies Ernestine and [employer]. Focused Exam Lactate Level 12/28/21 12:57: Lactic Acid Level 4.32*H 12/28/21 15:24: Lactic Acid Level 1.49 Objective Exam Vital Signs Vital Signs Date Time Temp Pulse Resp B/P (MAP) Pulse Ox O2 Delivery O2 Flow Rate FiO2 12/31/21 11:34 36.4 82 18 127/67 (87) 97 Nasal Cannula 4.00 12/30/21 11:01 97 Capillary Refill : General Appearance: No Apparent Distress, Chronically ill Respiratory: Lungs Clear, No Respiratory Distress Cardiovascular: Regular Rate, Rhythm, No Murmur Neurologic/Psychiatric: Alert, Oriented x3 Results/Procedures Lab Laboratory Tests 12/31/21 03:08 Patient resulted labs reviewed. Assessment/Plan Assessment and Plan Assess & Plan/Chief Complaint Septic Shock- shock resolved Intrabdominal abscess with fever and leukocytosis on arrival Continue on IV abx Surgery consulted, appreciate recs GNR on both blood cultures now so potentially not contaminated NSTEMI CAD s/p CABG HTN Cardiology consulted, appreciate recs Troponin trended down Continue ASA Has not followed with CTS or Cardiology in years h/o Renal Cell Suresh Last saw [facility] in 2004 Was told she may have had a recurrence but did not pursue treatment (though states it was her right kidney at the time) Lesion on left kidney concerning for recurrence Called Dr Ramos and he reports that there is some growth by a few millimetters from 2020 Will refer back to urology as an outpatient COPD Chronic respiratory failure Baseline 4lpm home oxygen need- at baseline MAT protocol DVT ppx: Lovenox Critical Care Critically Ill Patient Diagnosis/Problems Diagnosis/Problems (1) NSTEMI (non-ST elevated myocardial infarction) (2) Renal cell carcinoma (3) HTN (hypertension) (4) CAD (coronary artery disease) (5) Hx of CABG (6) COPD (chronic obstructive pulmonary disease) (7) Chronic respiratory failure (8) Hypokalemia (9) Septic shock (10) Generalized weakness Status: Acute (11) Elevated troponin Status: Acute (12) Abdominal abscess Status: Acute LUKE BYERS MD Dec 31, 2021 12:02
[2021-12-31 15:10] VITALS: BP 156/62
--- NOTE | 2021-12-31 17:09 | Physician Query Clarification ---
Physician Query-General Query to Physician: The medical record reflects the following clinical evidence: Clinical Indicators: essentially continuous 02 since day of admission, RR on admission 22, frequently 26 to 32, 02 sats 90-99% on 02 at 4L to 6L 02 sats 02 sats often 92% on 6L (P/F=148), Documentation of accessory muscle use and Labored respirations at times, Risk Factor(s): Sepsis with septic shock, Hx of using home 02 but has not had the equipment and has not been using any supplemental 02 at home prior to arrival, Smoker, Asthma Treatment: ER: Solu-Medrol IV, albuterol, normal saline 1 L, Zosyn IV, vancomycin IV, Later: Supplemental 02 up to 6L at times 1. Acute and chronic respiratory failure with hypoxia, present on admission 2. Other explanation of clinical findings 3. Unable to determine (no explanation for clinical findings) Please clarify and document your clinical opinion in the progress notes and discharge summary including the definitive and/or presumptive diagnosis, (suspected or probable), related to the above clinical findings. Please include clinical findings supporting your diagnosis. Maddie Rendon MSN, RN Clinical Body Artist [phone] [email or web address] PHYSICIAN RESPONSE: Based on the clinical findings in the record, please respond to the query above on this document as an addendum. Physician Response: If you have questions please contact: Drapery Seamstress: Ext: Thank you for your time and cooperation. Clinical Body Artist/Drapery Seamstress This is a permanent part of the medical record MADDIE RENDON Dec 31, 2021 17:09
[2021-12-31] MEDS: RT-ALBUTEROL SULF 2.5 MG/3 ML PRE-MIX VIAL INH PRN (19:48)
[2021-12-31 19:50] VITALS: BP 137/79
[2021-12-31 23:57] VITALS: BP 122/70
[2022-01-01] MEDS: PIPERACILLIN SODIUM/TAZOBACTAM 4.5 GM in NS (IVPB) 100 ML IV SCH ×4 (00:24→22:18)
[2022-01-01 04:15] VITALS: BP 135/63
[2022-01-01] MEDS: HYDROCORTISONE 100 MG/2 ML (Solu-CORTEF) VIAL IV SCH ×3 (05:35→22:10)
[2022-01-01 05:43] LABS: HEMATOCRIT 34 % (35-52); HEMOGLOBIN 10.5 g/dL (11.5-16.0); MEAN CORPUSCULAR HEMOGLOBIN 28 pg (25-34); MEAN CORPUSCULAR HGB CONC 31 g/dL (32-36); MEAN CORPUSCULAR VOLUME 92 fL (80-99); MEAN PLATELET VOLUME 10.1 fL (9.0-12.2); PLATELET COUNT 401 10^3/uL (130-400); WHITE BLOOD COUNT 9.5 10^3/uL (4.3-11.0)
[2022-01-01] MEDS: POTASSIUM CL 10MEQ/50ML IVPB 50 ML IV SCH (06:07)
[2022-01-01] MEDS: KCL 20 MEQ TAB (K-DUR) PO SCH (06:07)
[2022-01-01 06:09] LABS: CREATININE SERUM 0.61 MG/DL (0.60-1.30); PHOSPHORUS 2.2 MG/DL (2.3-4.7)
[2022-01-01 06:12] LABS: MAGNESIUM 2.1 MG/DL (1.6-2.4)
[2022-01-01] MEDS: MAGNESIUM 1 GM/100 ML IVPB 100 ML IV SCH (06:14)
[2022-01-01 07:40] VITALS: BP 141/81
[2022-01-01] MEDS: ASPIRIN 81 MG CHEW (CHILDREN'S ASA) PO SCH (08:13)
[2022-01-01] MEDS: MAGIC MOUTHWASH (ADULT) PO SCH ×16 (08:14→22:11)
[2022-01-01] MEDS: FLUCONAZOLE 100 MG/50 ML 50 ML IV SCH (08:14)
--- NOTE | 2022-01-01 09:04 | Progress Note - Cardiology ---
Cardiology SOAP Progress Note Subjective: Sitting up in recliner States she is feeling much stronger and hopes to go home soon Reports occ productive cough No c/o CP or palpitations Feels SOB is almost back to her baseline Objective: I&O/Vital Signs 12/31/21 01/01/22 01/01/22 01/01/22 23:57 04:15 07:40 08:01 Temp 36.2 36.0 36.4 Pulse 61 57 62 Resp 18 18 20 B/P (MAP) 122/70 (87) 135/63 (87) 141/81 (101) Pulse Ox 100 98 95 O2 Delivery Nasal Cannula Nasal Cannula Nasal Cannula Nasal Cannula O2 Flow Rate 4.00 4.00 4.00 4.00 12/31/21 23:59 Intake Total 850 ml Output Total 425 ml Balance 425 ml Weight (Pounds): 211 Weight (Ounces): 0.0 Weight (Calculated Kilograms): 95.011947 Constitutional: AAO x 3, well-developed, well-nourished Respiratory: No accessory muscle use, No respiratory distress; chest expansion is symmetric, chest is bilaterally symmetric, rhonchi (scattered), other (coarse breath sounds) Cardiovascular: regular rate-rhythm; No JVD; S1 and S2, other (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 (reports chronic)) Gastrointestional: No tender; soft, round, audible bowel sounds Extremities: no lower extremity edema bilateral Neurologic/Psychiatric: other (moves all limbs equally) Skin: No rash on exposed areas, No ulcerations on exposed areas Results/Procedures: Labs Laboratory Tests 01/01/22 05:32: White Blood Count 9.5, Red Blood Count 3.76L, Hemoglobin 10.5L, Hematocrit 34L, Mean Corpuscular Volume 92, Mean Corpuscular Hemoglobin 28, Mean Corpuscular Hemoglobin Concent 31L, Red Cell Distribution Width 13.9, Platelet Count 401H, Mean Platelet Volume 10.1, Sodium Level 138, Potassium Level 4.0, Chloride Level 99, Carbon Dioxide Level 30, Anion Gap 9, Blood Urea Nitrogen 9, Creatinine 0.61, Estimat Glomerular Filtration Rate 93, BUN/Creatinine Ratio 15, Glucose Level 127H, Calcium Level 8.0L, Phosphorus Level 2.2L, Magnesium Level 2.1 Microbiology 12/30/21 MRSA Screen - Final, Complete MRSA not isolated 12/28/21 Blood Culture - Preliminary, Resulted Gram Negative Rambo Staphylococcus capitis Culture In Progress Laboratory Tests 12/31/21 03:08 01/01/22 05:32 A/P: Assessment: Mildly elevated troponin - likely Type 2 [place] secondary to transient hypotension Echocardiogram of 12-29-21 showed LVEF 55-60%. PASP 30-35 mmHg Abdominal pain and mid ileal inflammation and interloop abscess per Dr. 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 She has been evaluated by various surgeons, including Dr. Leong at [facility] in [place], [place], and has been advised to avoid further surgery, she states Sleep apnea for which she is to be on C-PAP therapy, but she has been noncompliant - follows with Dr. Chavez Coronary artery disease - with history of left internal mammary artery graft to left anterior descending arteryin December 2007 after she had presented with non-ST elevation myocardial infarction. Surgery was carried out by Dr. Phillips in [place], [place]. - Myocardial perfusion imaging was last carried out in March 2010 and it did not show any significant myocardial ischemia or infarction and left ventricular ejection fraction was calculated to be 74%. - Cardiac catheterization of 06/22/11 showed that the left internal mammary artery graft to distal left anterior descending artery was widely patent. The patient does have proximal left anterior descending artery disease which also subserves a fairly large first diagonal branch, which was not bypassed. However, the distal left anterior descending artery is well protected with the internal mammary artery graft and the patient is currently not reporting angina - MPI of December 2015 showed no evidence of significant myocardial ischemia or infarction. LVEFof 78%6. Echo of April 2012 showed LVEF 55-60% and PASP 35-40. Hypertension - controlled Mild peripheral arterial disease on angiography of November [address] Mcginnis. - Leg arterial Doppler of May 2011 showed mild diffuse atherosclerotic disease. There was no evidence of abdominal aortic aneurysm or dissection. Hyperlipidemia - managed by PCP Chronic obstructive pulmonary disease - due to chronic tobaccoism. Mild carotid arterial disease per ultrasonography of September 2013. Plan: Mildly elevated troponin - likely Type 2 [place] secondary to hypotension Continue ASA 81 mg daily if ok with Medical services H/O CAD with CABG - likely will need further coronary eval with an MPI when current non-cardiac issue has improved Replace electrolytes Monitor lab closely Advise out pt f/u DARRIUS ARORA Jan 01, 2022 09:04
--- NOTE | 2022-01-01 10:33 | Physical Therapy Evaluation ---
PT Evaluation-General Medical Diagnosis Admission Date Dec 28, 2021 at 19:05 Medical Diagnosis: abdominal wall abscess/site of surgery Onset Date: Dec 28, 2021 Therapy Diagnosis Therapy Diagnosis: debility/weakness Height/Weight Height (Feet): 5 Height (Inches): 3.00 Weight (Pounds): 211 Weight (Ounces): 0.0 Precautions Precautions/Isolations: Fall Prevention, Standard Precautions Referral Physician: Linda Reason for Referral: Evaluation/Treatment Medical History Pertinent Medical History: CABG, CAD, COPD, [place] Additional Medical History renal cancer Current History EMS secondary to SOA, lethargy and loss of appetite Reviewed History: Yes Social History Home: Single Level Current Living Status: Significant Other Entry Into Home: Ramp Prior Prior Level of Function SCALE: Activities may be completed with or without assistive devices. 8-Kpnchbvxku-bagmrjx completes the activity by him/herself with no assistance from a helper. 5-Set-up or Clean-up Assistance-helper sets up or cleans up; patient completes activity. Oakley assists only prior to or following the activity. 4-Supervision or Touching Assistance-helper provides verbal cues and/or touching/steadying and/or contact guard assistance as patient completes activity. Assistance may be provided throughout the activity or intermittently. 3-Partial/Moderate Assistance-helper does LESS THAN HALF the effort. Oakley lifts, holds or supports trunk or limbs, but provides less than half the effort. 2-Substantial/Maximal Assistance-helper does MORE THAN HALF the effort. Oakley lifts or holds trunk or limbs and provides more than half the effort. 2-Yzmsbbhtg-akgwfy does ALL the effort. Patient does none of the effort to complete the activity. Or, the assistance of 2 or more helpers is required for the patient to complete the activity. If activity was not attempted, code reason: 7-Patient Refused. 9-Not Applicable-not attempted and the patient did not perform the activity before the current illness, exacerbation or injury. 10-Not Attempted due to Environmental Limitations-(lack of equipment, weather restraints, etc.). 88-Not Attempted due to Medical Conditions or Safety Concerns. Bed Mobility: 6 Transfers (B,C,W/C): 6 Gait: 6 Stairs: 9 Indoor Mobility (Ambulation): Independent Stairs: Not Applicalbe Prior Devices Use: Walker (4WW) PT Evaluation-Current Subjective Patient agrees to PT. Objective Patient Orientation: Normal For Age Attachments: Oxygen, Hernandez Catheter, IV ROM/Strength ROM Lower Extremities bilateral LE WFL Strength Lower Extremities 3/5 grossly bilateral LE Integumentary/Posture Integumentary refer to nursing notes Bladder Incontinence: Hernandez Cath Posture flexed trunk and bilateral knee posture Neuromuscular (Tone, Coordination, Reflexes) grossly intact Sensory Vision: Wears Glasses Hearing: Functional Transfers Sit to Stand (QC): 4 Gait Does the Patient Walk?: Yes Mode of Locomotion: Walk Anticipated Mode of Locomotion: Walk Walk 10 feet (QC): 4 Walk 50 ft with 2 Turns(QC): 4 Walk 150 ft (QC): 4 Distance: 150' Gait Assistive Device: FWW Comments/Gait Description patient ambulates short distances PLOF/reports she usually sits on her 4WW to rest PLOF/flexed trunk and bilateral knee posture Balance Sitting Static: Normal Sitting Dynamic: Normal Standing Static: Fair Standing Dynamic: Fair Assessment/Needs 76 y.o. female, will benefit from skilled PT to address functional strength and mobility to improve current LOF to safely return to home at maximum LOF. Patient fatigues with minimal activity. Rehab Potential: Fair PT Assisted Goals Assisted Goals PT Link Trainer Operator Goals Time Frame: Jan 16, 2022 Roll Left & Right (QC): 6 Sit to Lying (QC): 6 Lying-Sitting on Side/Bed(QC): 6 Sit to Stand (QC): 6 Chair/Ztq-hl-Fujyv Xfer(QC): 6 Toilet Transfer (QC): 6 Walk 10 feet (QC): 6 Walk 50ft with 2 Turns (QC): 6 Walk 150 ft (QC): 6 PT Plan Problem List Problem List: Activity Tolerance, Functional Strength, Safety, Balance, Gait, Transfer, Bed Mobility Treatment/Plan Treatment Plan: Continue Plan of Care Treatment Plan: Bed Mobility, Education, Functional Activity Joe, Functional Strength, Gait, Safety, Therapeutic Exercise, Transfers Treatment Duration: Jan 16, 2022 Frequency: 6 times per week Estimated Hrs Per Day: .25 hour per day Patient and/or Family Agrees t: Yes Time/GCodes Time In: 850 Time Out: 902 Total Billed Treatment Time: 12 Total Billed Treatment 1 visit EVMod 12 min WAYNE TOSCANO PT Jan 01, 2022 10:33
--- NOTE | 2022-01-01 11:01 | Progress Note - Hospitalist ---
Subjective HPI/CC On Admission Date Seen by Provider: Jan 01, 2022 Patient 76-year-old female with past medical history of coronary artery disease status post CABG, renal cell carcinoma, hypertension, COPD who presented to the emergency department due to generalized weakness. She reports for the past couple weeks she has not felt well and has become weaker and weaker every day. Yesterday she was unable to get out of bed prompting her to seek evaluation in the emergency department. She was found to be febrile and complained of abdominal pain so CT of her abdomen was obtained. This revealed possible abdominal abscess secondary to inflammatory bowel disease. Patient reports a history of this in May of last year. I did discuss this with her primary care doctor who states it was actually May 2020. CT also revealed possible endometrial thickening and recurrence of renal cell carcinoma. Patient states that she has known about the spot in her kidney for a while and chose not to get anything else done. She was also found to have an elevated troponin from 0.8-1.2 yesterday. She was admitted to stepdown but became hypotensive and was transferred to the ICU for pressors. Overall she reports feeling better and denies any further abdominal pain. She is requesting something to eat instead. Subjective/Events-last exam Pt reports feeling better today. No complaints. Hopeful for DC home tomorrow. Objective Exam Vital Signs Vital Signs Date Time Temp Pulse Resp B/P (MAP) Pulse Ox O2 Delivery O2 Flow Rate FiO2 01/01/22 08:01 Nasal Cannula 4.00 01/01/22 07:40 36.4 62 20 141/81 (101) 95 12/30/21 11:01 97 Capillary Refill : General Appearance: No Apparent Distress, Chronically ill Respiratory: Lungs Clear, No Respiratory Distress Cardiovascular: Regular Rate, Rhythm, No Murmur Genital/Rectal: Other (funes in place) Neurologic/Psychiatric: Alert, Oriented x3 Results/Procedures Lab Laboratory Tests 01/01/22 05:32 Patient resulted labs reviewed. Assessment/Plan Assessment and Plan Assess & Plan/Chief Complaint Septic Shock- shock resolved Intrabdominal abscess with fever and leukocytosis on arrival Continue on IV abx Surgery consulted, appreciate recs GNR on both blood cultures now so potentially not contaminated- still waiting on ID and sensitivity NSTEMI CAD s/p CABG HTN Cardiology consulted, appreciate recs Troponin trended down Continue ASA Has not followed with CTS or Cardiology in years h/o Renal Cell Suresh Last saw [facility] in 2004 Was told she may have had a recurrence but did not pursue treatment (though states it was her right kidney at the time) Lesion on left kidney concerning for recurrence Called Dr Ramos and he reports that there is some growth by a few millimetters from 2020 Will refer back to urology as an outpatient COPD Chronic respiratory failure Baseline 4lpm home oxygen need- at baseline Will need home oxygen study prior to DC MAT protocol DVT ppx: Lovenox Critical Care Critically Ill Patient Diagnosis/Problems Diagnosis/Problems (1) NSTEMI (non-ST elevated myocardial infarction) (2) Renal cell carcinoma (3) HTN (hypertension) (4) CAD (coronary artery disease) (5) Hx of CABG (6) COPD (chronic obstructive pulmonary disease) (7) Chronic respiratory failure (8) Hypokalemia (9) Septic shock (10) Generalized weakness Status: Acute (11) Elevated troponin Status: Acute (12) Abdominal abscess Status: Acute LUKE BYERS MD Jan 01, 2022 11:01
[2022-01-01 11:16] VITALS: BP 145/74
--- NOTE | 2022-01-01 11:25 | Progress Note ---
Subjective Date Seen by a Provider: Jan 01, 2022 Time Seen by a Provider: 11:00 Subjective/Events-last exam doing much better. tolerating diet. still having diarrhea but slightly more solid. no abd pain. Objective Exam Vital Signs Date Time Temp Pulse Resp B/P (MAP) Pulse Ox O2 Delivery O2 Flow Rate FiO2 01/01/22 11:16 36.4 67 20 145/74 (97) 97 Nasal Cannula 4.00 01/01/22 08:01 Nasal Cannula 4.00 01/01/22 08:00 Nasal Cannula 4.00 01/01/22 07:40 36.4 62 20 141/81 (101) 95 Nasal Cannula 4.00 01/01/22 04:15 36.0 57 18 135/63 (87) 98 Nasal Cannula 4.00 12/31/21 23:57 36.2 61 18 122/70 (87) 100 Nasal Cannula 4.00 12/31/21 19:50 97 Nasal Cannula 4.00 12/31/21 19:50 36.2 66 18 137/79 (98) 97 Nasal Cannula 4.00 12/31/21 19:20 Nasal Cannula 4.00 12/31/21 15:10 36.3 75 20 156/62 (93) 97 Nasal Cannula 4.00 12/31/21 14:35 Nasal Cannula 4.00 12/31/21 11:34 36.4 82 18 127/67 (87) 97 Nasal Cannula 4.00 I & O 01/01/22 07:00 Intake Total 1050 ml Output Total 575 ml Balance 475 ml Capillary Refill : General Appearance: No Apparent Distress HEENT: PERRL/EOMI Neck: Full Range of Motion Respiratory: Chest Non Tender, Decreased Breath Sounds, Rhonci Cardiovascular: Regular Rate, Rhythm Gastrointestinal: normal bowel sounds, non tender, soft Extremity: Normal Capillary Refill Neurologic/Psychiatric: Alert, Oriented x3 Skin: Normal Color Lymphatic: No Adenopathy Results Lab Laboratory Tests 01/01/22 05:32: White Blood Count 9.5, Red Blood Count 3.76L, Hemoglobin 10.5L, Hematocrit 34L, Mean Corpuscular Volume 92, Mean Corpuscular Hemoglobin 28, Mean Corpuscular Hemoglobin Concent 31L, Red Cell Distribution Width 13.9, Platelet Count 401H, Mean Platelet Volume 10.1, Sodium Level 138, Potassium Level 4.0, Chloride Level 99, Carbon Dioxide Level 30, Anion Gap 9, Blood Urea Nitrogen 9, Creatinine 0.61, Estimat Glomerular Filtration Rate 93, BUN/Creatinine Ratio 15, Glucose Level 127H, Calcium Level 8.0L, Phosphorus Level 2.2L, Magnesium Level 2.1 Microbiology 12/30/21 MRSA Screen - Final, Complete MRSA not isolated 12/28/21 Blood Culture - Preliminary, Resulted Gram Negative Rambo Staphylococcus capitis Culture In Progress Assessment/Plan Assessment/Plan Assess & Plan/Chief Complaint crohn's enteritis w/o complications. start steroids. will need tapering doses once discharged. will need GI referral for nursing home medical managment. will need reeval urologist regarding possible recurrent let renal cell ca. low residue diet next 6 weeks. ok for home when ok with PMD. SAFIA GONZALEZ MD Jan 01, 2022 11:25
--- NOTE | 2022-01-01 12:55 | Progress Note - Cardiology ---
Cardiology SOAP Progress Note Subjective: No cp or palp or syncope No shortness of breath No n/v/d Gen weakness is improving Objective: I&O/Vital Signs 01/01/22 01/01/22 01/01/22 01/01/22 04:15 07:40 08:00 08:01 Temp 36.0 36.4 Pulse 57 62 Resp 18 20 B/P (MAP) 135/63 (87) 141/81 (101) Pulse Ox 98 95 O2 Delivery Nasal Cannula Nasal Cannula Nasal Cannula Nasal Cannula O2 Flow Rate 4.00 4.00 4.00 4.00 01/01/22 11:16 Temp 36.4 Pulse 67 Resp 20 B/P (MAP) 145/74 (97) Pulse Ox 97 O2 Delivery Nasal Cannula O2 Flow Rate 4.00 01/01/22 00:00 Intake Total 850 ml Output Total 425 ml Balance 425 ml Weight (Pounds): 211 Weight (Ounces): 0.0 Weight (Calculated Kilograms): [id number] Constitutional: AAO x 3, well-developed, well-nourished Respiratory: No accessory muscle use, No respiratory distress; chest expansion is symmetric, chest is bilaterally symmetric, rhonchi (scattered), other (coarse breath sounds) Cardiovascular: regular rate-rhythm; No JVD; S1 and S2, other (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 (reports chronic)) Gastrointestional: No tender; soft, round, audible bowel sounds Extremities: no lower extremity edema bilateral Neurologic/Psychiatric: other (moves all limbs equally) Skin: No rash on exposed areas, No ulcerations on exposed areas Results/Procedures: Labs Laboratory Tests 01/01/22 05:32: White Blood Count 9.5, Red Blood Count 3.76L, Hemoglobin 10.5L, Hematocrit 34L, Mean Corpuscular Volume 92, Mean Corpuscular Hemoglobin 28, Mean Corpuscular Hemoglobin Concent 31L, Red Cell Distribution Width 13.9, Platelet Count 401H, Mean Platelet Volume 10.1, Sodium Level 138, Potassium Level 4.0, Chloride Level 99, Carbon Dioxide Level 30, Anion Gap 9, Blood Urea Nitrogen 9, Creatinine 0.61, Estimat Glomerular Filtration Rate 93, BUN/Creatinine Ratio 15, Glucose Level 127H, Calcium Level 8.0L, Phosphorus Level 2.2L, Magnesium Level 2.1 Microbiology 12/30/21 MRSA Screen - Final, Complete MRSA not isolated 12/28/21 Blood Culture - Preliminary, Resulted Gram Negative Rambo Staphylococcus capitis Culture In Progress Laboratory Tests 12/31/21 03:08 01/01/22 05:32 A/P: Assessment: Mildly elevated troponin - likely Type 2 NV secondary to transient hypotension Echocardiogram of 12-29-21 showed LVEF 55-60%. PASP 30-35 mmHg Abdominal pain and mid ileal inflammation and interloop abscess per Dr. 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 She has been evaluated by various surgeons, including Dr. Leong at [facility] in [place], [place], and has been advised to avoid further surgery, she states Sleep apnea for which she is to be on C-PAP therapy, but she has been noncompliant - follows with Dr. Chavez Coronary artery disease - with history of left internal mammary artery graft to left anterior descending arteryin December 2007 after she had presented with non-ST elevation myocardial infarction. Surgery was carried out by Dr. Phillips in [place], [place]. - Myocardial perfusion imaging was last carried out in March 2010 and it did not show any significant myocardial ischemia or infarction and left ventricular ejection fraction was calculated to be 74%. - Cardiac catheterization of 06/22/11 showed that the left internal mammary artery graft to distal left anterior descending artery was widely patent. The patient does have proximal left anterior descending artery disease which also subserves a fairly large first diagonal branch, which was not bypassed. However, the distal left anterior descending artery is well protected with the internal mammary artery graft and the patient is currently not reporting angina - MPI of December 2015 showed no evidence of significant myocardial ischemia or infarction. LVEFof 78%6. Echo of April 2012 showed LVEF 55-60% and PASP 35-40. Hypertension - controlled Mild peripheral arterial disease on angiography of November [address] Mcginnis. - Leg arterial Doppler of May 2011 showed mild diffuse atherosclerotic dis ease. There was no evidence of abdominal aortic aneurysm or dissection. Hyperlipidemia - managed by PCP Chronic obstructive pulmonary disease - due to chronic tobaccoism. Mild carotid arterial disease per ultrasonography of September 2013. Plan: Mildly elevated troponin - likely Type 2 NV secondary to hypotension Continue ASA 81 mg daily if ok with Medical services H/O CAD with CABG - likely will need further coronary eval with an MPI when current non-cardiac issue has improved Replace electrolytes Monitor lab closely Advise out pt f/u MARTITA GUSTAFSON MD FACP [facility] Jan 01, 2022 12:55
[2022-01-01 15:30] VITALS: BP 156/71
[2022-01-01] MEDS ORDERED: CATHETER FLUSH 10 ML SYR IV PRN (17:45)
[2022-01-01 19:45] VITALS: BP 147/79
[2022-01-01] MEDS: CATHETER FLUSH 10 ML SYR IV SCH (22:11)
[2022-01-01] MEDS: LOPERAMIDE 2 MG (IMODIUM) TABLET PO PRN (22:16)
[2022-01-01] MEDS: RT-ALBUTEROL SULF 2.5 MG/3 ML PRE-MIX VIAL INH PRN (22:27)
[2022-01-02 00:25] VITALS: BP 131/74
[2022-01-02 04:04] VITALS: BP 154/78
[2022-01-02 05:46] LABS: HEMATOCRIT 36 % (35-52); HEMOGLOBIN 11.1 g/dL (11.5-16.0); MEAN CORPUSCULAR HEMOGLOBIN 28 pg (25-34); MEAN CORPUSCULAR HGB CONC 31 g/dL (32-36); MEAN CORPUSCULAR VOLUME 92 fL (80-99); PLATELET COUNT 470 10^3/uL (130-400); WHITE BLOOD COUNT 10.1 10^3/uL (4.3-11.0)
[2022-01-02 05:53] LABS: POTASSIUM 3.4 MMOL/L (3.6-5.0)
[2022-01-02 05:54] LABS: CALCIUM 8.3 MG/DL (8.5-10.1)
[2022-01-02 05:59] LABS: CREATININE SERUM 0.61 MG/DL (0.60-1.30); PHOSPHORUS 2.9 MG/DL (2.3-4.7)
[2022-01-02] MEDS: POTASSIUM CL 10MEQ/50ML IVPB 50 ML IV SCH (06:00)
[2022-01-02] MEDS: KCL 20 MEQ TAB (K-DUR) PO SCH (06:01)
[2022-01-02] MEDS: MAGNESIUM 1 GM/100 ML IVPB 100 ML IV SCH (06:03)
[2022-01-02] MEDS: HYDROCORTISONE 100 MG/2 ML (Solu-CORTEF) VIAL IV SCH (06:16)
[2022-01-02] MEDS: PIPERACILLIN SODIUM/TAZOBACTAM 4.5 GM in NS (IVPB) 100 ML IV SCH (06:17)
[2022-01-02] MEDS: CATHETER FLUSH 10 ML SYR IV SCH (06:17)
[2022-01-02 07:40] VITALS: BP 150/60
--- NOTE | 2022-01-02 08:37 | Physical Therapy Daily Note ---
PT Daily Note-Current Subjective States that she is feeling okay and ready to go home. Transfers SCALE: Activities may be completed with or without assistive devices. 9-Hbhurbevps-ryprzdr completes the activity by him/herself with no assistance from a helper. 5-Set-up or Clean-up Assistance-helper sets up or cleans up; patient completes activity. Wheeler assists only prior to or following the activity. 4-Supervision or Touching Assistance-helper provides verbal cues and/or touching/steadying and/or contact guard assistance as patient completes activity. Assistance may be provided throughout the activity or intermittently. 3-Partial/Moderate Assistance-helper does LESS THAN HALF the effort. Wheeler lifts, holds or supports trunk or limbs, but provides less than half the effort. 2-Substantial/Maximal Assistance-helper does MORE THAN HALF the effort. Wheeler lifts or holds trunk or limbs and provides more than half the effort. 8-Djxckymmy-znoyvy does ALL the effort. Patient does none of the effort to complete the activity. Or, the assistance of 2 or more helpers is required for the patient to complete the activity. If activity was not attempted, code reason: 7-Patient Refused. 9-Not Applicable-not attempted and the patient did not perform the activity before the current illness, exacerbation or injury. 10-Not Attempted due to Environmental Limitations-(lack of equipment, weather restraints, etc.). 88-Not Attempted due to Medical Conditions or Safety Concerns. Sit to Stand (QC): 5 Gait Training Does the Patient Walk?: Yes Distance: 20' Walk 10 feet (QC): 5 Gait Persons Needed: 1 Gait Assistive Device: FWW Exercises Supine Ex: LE Protocol Supine Reps: 15 Assessment Current Status: Excellent Progress Patient is progressing well and should be safe to return home. PT Chcf Goals Tire Trimmer Hand Goals PT Tire Trimmer Hand Goals Time Frame: Jan 16, 2022 Roll Left & Right (QC): 6 Sit to Lying (QC): 6 Lying-Sitting on Side/Bed(QC): 6 Sit to Stand (QC): 6 Chair/Hbe-bf-Tnxxe Xfer(QC): 6 Toilet Transfer (QC): 6 Walk 10 feet (QC): 6 Walk 50ft with 2 Turns (QC): 6 Walk 150 ft (QC): 6 PT Plan Treatment/Plan Treatment Plan: Continue Plan of Care Treatment Plan: Bed Mobility, Education, Functional Activity Joe, Functional Strength, Gait, Safety, Therapeutic Exercise, Transfers Treatment Duration: Jan 16, 2022 Frequency: 6 times per week Estimated Hrs Per Day: .25 hour per day Patient and/or Family Agrees t: Yes Time/GCodes Time In: 824 Time Out: 834 Total Billed Treatment Time: 10 Total Billed Treatment 1, GT x 10' DB ALEJANDRE PT Jan 02, 2022 08:37
[2022-01-02] MEDS: ASPIRIN 81 MG CHEW (CHILDREN'S ASA) PO SCH (08:46)
[2022-01-02] MEDS: MAGIC MOUTHWASH (ADULT) PO SCH ×4 (08:46)
[2022-01-02] MEDS: FLUCONAZOLE 100 MG/50 ML 50 ML IV SCH (08:47)
[2022-01-02] MEDS ORDERED: KCL 20 MEQ TAB (K-DUR) PO ONE (09:00)
[2022-01-02 12:00] VITALS: BP 153/68
[2022-01-02] MEDS ORDERED: PRED10TA22 PO (12:01)
[2022-01-02] MEDS ORDERED: AMOX1TAB12 PO (12:01)
--- NOTE | 2022-01-02 18:30 | Discharge Summary ---
Discharge Summary Reconcile Patient Problems Problems Reviewed?: Yes Instructions for Patient Via Radha imgfave, Assessment/Instructions See instructions Physician to follow Patient: Ancelmo Discharge Diet for Home: Low Sodium Diet Hospital Course Date of Admission: Dec 28, 2021 at 19:05 Admission Diagnosis : Septic shock due to colitis Family Physician/Provider: Ina Ag MD Date of Discharge: 01/02/22 Discharge Diagnosis: Septic shock due to colitis and Bacteroides bacteremia Hospital Course: Marek Wharton is a 76 year old female with PMH HTN, CAD s/p CABG, COPD with chronic respiratory failure on 4 L continuously, history of renal cell carcinoma, who was admitted with septic shock due to coliitis with abscess. She was started on IV antibiotics and admitted to the ICU on pressors. Surgery was consulted and assisted with her care. Repeat imaging did not show evidence of abscess but was still consistent with significant colitis. She improved with conservative medical treatment. Her blood cultures were positive for Bacteroides. She was given a course of Augmentin to complete as an outpatient. There was concern for inflammatory bowel disease. She was started on steroids. She will continue on Prednisone and follow up with her PCP in about a week. She also had a kidney lesion concerning for recurrence of her renal cell carcinoma. She was recommended to follow up with her primary care physician and oncologist. She was discharged home with home health care. Labs and Pending Lab Test: Laboratory Tests 01/02/22 04:56: White Blood Count 10.1, Red Blood Count 3.95, Hemoglobin 11.1L, Hematocrit 36, Mean Corpuscular Volume 92, Mean Corpuscular Hemoglobin 28, Mean Corpuscular Hemoglobin Concent 31L, Red Cell Distribution Width 13.7, Platelet Count 470H, Mean Platelet Volume 10.0, Sodium Level 141, Potassium Level 3.4L, Chloride Level 99, Carbon Dioxide Level 30, Anion Gap 12, Blood Urea Nitrogen 7, Creatinine 0.61, Estimat Glomerular Filtration Rate 93, BUN/Creatinine Ratio 11, Glucose Level 106H, Calcium Level 8.3L, Phosphorus Level 2.9, Magnesium Level 2.0 Microbiology 12/30/21 MRSA Screen - Final, Complete MRSA not isolated 12/28/21 Blood Culture - Preliminary, Resulted Anaerobic Gram Positive Rambo Bacteroides uniformis Staphylococcus capitis Home Meds Active Prednisone 10 Mg Tab.ds.pk 10 Mg PO DAILY Take 6 tabs(60mg)daily,decrease by 1 tab(10mg)every other day. Amox Tr-K Clv 875-125 mg Tab (Amoxicillin/Potassium Clav) 875 Mg-125 Mg Tablet 1 Each PO BID 7 Days Reported Tylenol Extra Strength (Acetaminophen) 500 Mg Tablet 1,000 Mg PO Q8H PRN Consulations Surgery Patient Allergies: Coded Allergies: No Known Drug Allergies (Verified , 12/22/07) Height (Feet): 5 Height (Inches): 3.00 Weight (Pounds): 211 Weight (Ounces): 0.0 Home Health Need/Face to Face Date of Face to Face: Jan 02, 2022 Clinical Findings: Generalized weakness and fatigue, Instability, Muscle weakness, Shortness of breath, Unsteady gait I have seen Pt [id number]: Yes Discharged To: Home Diagnosis/Conditions: Colitis COPD Chronic respiratory failure Problems/Diagnosis/Condition: (1) Septicemia due to Bacteroides species (2) Chronic respiratory failure (3) COPD (chronic obstructive pulmonary disease) (4) Generalized weakness Patient is Homebound due to: Jonas fall risk due to instabilty, Muscle weakness, Shortness of breath/distress Homebound Status Due to the above stated illness, injury or surgical procedure (medical condition or diagnosis) and associated clinical findings, the patient is homebound because of his/her inability to leave home except with aid of a supportive device and/or person AND leaving the home requires a considerable and taxing effort or is medically contraindicated. Pt req the following assistanc: Aid of another person, Walker Home Health Nursing Orders Home Health Services Order: Nursing Services, Car Deliverer-Evaluate & Treat, Physical Therapy-Evaluate & Treat Home Health Infusion Therapy Line Start Date: Dec 28, 2021 Therapy Orders Therapy Orders: OT (must have SN or PT order), Physical Therapy Therapy Specific Orders: Eval assistive deivces, Teach enviro modifications/safety, Gait training, Increase strength/endurance Certify Stmt I certify that this patient is under my care and that I, a nurse practitioner or a physician; a assistant spa manager working with me, had a face to face encounter that - meets the physician face to face encounter requirements with this patient as dated. Discharge Physical Exam General: Alert, Oriented X3, No Acute Distress HEENT: Atraumatic, EOMI, Mucous Memb Moist/[place] Lungs: Clear to Auscultation, Normal Air Movement Heart: Regular Rate, No Murmurs Abdomen: Normal Bowel Sounds, Soft, No Tenderness Extremities: No Edema, No Tenderness/Swelling Skin: No Rashes, No Significant Lesion Neuro: Normal Speech, Sensation Intact Psych/Mental Status: Mental Status NL, Other (agitated) FREDDY NARANJO MD Jan 02, 2022 18:25
== END 2022-01-02 12:55 | disposition home health service (06) | DRG 871 ==
LOC: EDUNIT# 12:53 → ER FS 12:54 → CSD 19:05 → ICU 12-29 00:24 → 4TH 12-30 13:30
PROVIDERS: ADMIT Family Medicine; ATTEND Internal Medicine
DX: A41.9 Sepsis, unspecified organism (principal); R65.21 Severe sepsis with septic shock; I21.A1 Myocardial infarction type 2; L02.211 Cutaneous abscess of abdominal wall; J96.10 Chronic respiratory failure, unspecified whether with hypoxia or hypercapnia; E87.2 Acidosis; K50.90 Crohn's disease, unspecified, without complications; Z85.528 Personal history of other malignant neoplasm of kidney; J44.9 Chronic obstructive pulmonary disease, unspecified; I25.10 Atherosclerotic heart disease of native coronary artery without angina pectoris; I25.2 Old myocardial infarction; Z95.5 Presence of coronary angioplasty implant and graft; Z79.82 Long term (current) use of aspirin; Z79.899 Other long term (current) drug therapy; Z96.612 Presence of left artificial shoulder joint; Z95.1 Presence of aortocoronary bypass graft; I10 Essential (primary) hypertension; M19.90 Unspecified osteoarthritis, unspecified site; E83.42 Hypomagnesemia; F17.210 Nicotine dependence, cigarettes, uncomplicated; E87.6 Hypokalemia; G47.33 Obstructive sleep apnea (adult) (pediatric); E78.00 Pure hypercholesterolemia, unspecified; E11.51 Type 2 diabetes mellitus with diabetic peripheral angiopathy without gangrene; I77.9 Disorder of arteries and arterioles, unspecified; Z20.822 Contact with and (suspected) exposure to COVID-19
CPT/HCPCS: 36415; 71045; 71275; 74177; 80048; 80053; 80320; 82947; 83605; 83735; 83880; 84100; 84132; 84484; 85007; 85027; 85379; 85610; 85730; 87040; 87077; 87081; 87185; 87636; 87804; 93005; 93306; 94640; 94760; 94761; Q9967

== ENCOUNTER → 2022-01-26 | Outpatient (CLI) | payer MEDICARE, MEDICAID ==
[~2022-01-26] MED LIST changes: +ACET-2267 PO; +AMOX1TAB12 PO; +PRED10TA22 PO
[2022-01-26 14:18] LABS: BILIRUBIN,URINE NEGATIVE (NEGATIVE); CLARITY,URINE CLOUDY; COLOR,URINE YELLOW; GLUCOSE, URINE (UA) NEGATIVE (NEGATIVE); KETONES,URINE NEGATIVE (NEGATIVE); LEUKOCYTE ESTERASE ,URINE TRACE (NEGATIVE); NITRITE,URINE POSITIVE (NEGATIVE); PH,URINE 5.5 (5-9); PROTEIN,URINE 1+ (NEGATIVE)
[2022-01-26 14:25] LABS: BACTERIA,URINE LARGE /HPF; RBC,URINE RARE /HPF; SQUAMOUS EPITHELIAL CELL,UR 0-2 /HPF; WBC,URINE 25-50 /HPF
== END ==
LOC: LAB FS 14:06
PROVIDERS: ATTEND Family Medicine
DX: R30.9 Painful micturition, unspecified (principal)
CPT/HCPCS: 81000; 87077; 87088

== ENCOUNTER 2022-06-25 18:20 | Emergency (ER) | payer MEDICARE, MEDICAID ==
[~2022-06-25] VITALS: Ht 154.9 cm; Wt 57.2 kg
[2022-06-25] MEDS ORDERED: NS IV 1000 ML 1,000 ML IV STA (18:33)
--- NOTE | 2022-06-25 18:40 | ED General ---
General Chief Complaint: General Problems/Pain Stated Complaint: FALL Source of Information: Patient Exam Limitations: No Limitations History of Present Illness Date Seen by Provider: Jun 25, 2022 Time Seen by Provider: 18:24 Initial Comments 77yoF with PMH of CAD s/p CABG, HTN, HLD, COPD with continued smoking coming in via EMS from home after a fall. The patient fell 2 days ago, family found her 10 AM yesterday morning. She has had difficulty getting around since then with their assistance. She is mostly having left hip pain and low back pain as well as bilateral elbow pain. Pain is better with rest, worse with movement. Has not had anything for the pain as of yet today. Has continued to go to the bathroom and urinate today. She states she was on the ground for at least 16 hours rolling around trying to get up. She fell because she tripped and landed on her side. Does not think she hit her head or passed out. Denies any chest pain, shortness of breath, abdominal pain, nausea, vomiting, diarrhea, focal weakness or numbness, or any other concerns. Was diagnosed with influenza A over a week ago that she states she is still getting over. Allergies and Home Medications Allergies Coded Allergies: No Known Drug Allergies (Verified , 12/22/07) Patient Home Medication List Home Medication List Reviewed: Yes Acetaminophen (Tylenol Extra Strength) 500 Mg Tablet, 1,000 MG PO Q8H PRN for PAIN-MILD (1-4), (Reported) Entered as Reported by: JEAN CHAUDHARI on 12/29/21 1110 Amoxicillin/Potassium Clav (Amox Tr-K Clv 875-125 mg Tab) 875 Mg-125 Mg Tablet, 1 EACH PO BID Prescribed by: FREDDY NARANJO on 01/02/22 1201 Prednisone (Prednisone) 10 Mg Tab.ds.pk, 10 MG PO DAILY Prescribed by: FREDDY NARANJO on 01/02/22 1201 Review of Systems Review of Systems Constitutional: No fever EENTM: no symptoms reported Respiratory: no symptoms reported Cardiovascular: no symptoms reported Gastrointestinal: no symptoms reported Genitourinary: no symptoms reported Musculoskeletal: see HPI Skin: no symptoms reported Psychiatric/Neurological: No Symptoms Reported Hematologic/Lymphatic: No Symptoms Reported Immunological/Allergic: no symptoms reported All Other Systems Reviewed Negative Unless Noted: Yes Past Yljvuan-Jkwpos-Ixaybk Hx Patient Social History Tobacco Use?: Yes Use of E-Cig and/or Vaping dev: No Substance use?: No Alcohol Use?: No Pt feels they are or have been: No Immunizations Up To Date First/Initial COVID19 Vaccinat: 2020 Second COVID19 Vaccination Maksim: 2020 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 Mixer: JAMEE Seasonal Allergies Seasonal Allergies: No Past Medical History Surgeries: Yes (each knee arthroscopy, L total shoulder replacement) CABG, Orthopedic Respiratory: Yes Asthma Cardiac: Yes (pt stopped all meds 7 yrs ago) Coronary Artery Disease, Heart Attack, Hypertension Neurological: No Reproductive Disorders: Yes Sexually Transmitted Disease: No Genitourinary: No Gastrointestinal: No Musculoskeletal: Yes Arthritis Endocrine: No HEENT: No Cancer: Yes Kidney Did You Recieve Any Treatments: Yes What Type of Treatment Did You: Surgical Intervention Psychosocial: No Blood Disorders: No Family Medical History Heart Disease, Hypertension Physical Exam Vital Signs Vital Signs - First Documented 06/25/22 18:24 Temp 36.4 Pulse 106 Resp 24 B/P (MAP) 139/61 (87) Pulse Ox 100 O2 Delivery Room Air Capillary Refill : Height, Weight, BMI Height: 5'3.00" Weight: 211lbs. 0.0oz. 95.884414to; 29.16 BMI Method: General Appearance: No Apparent Distress, WD/WN Eyes: Bilateral Eye Normal Inspection HEENT: PERRL/EOMI, Normal ENT Inspection, Pharynx Normal Neck: Full Range of Motion, Normal Inspection, Non Tender, Supple Respiratory: Chest Non Tender, No Accessory Muscle Use, No Respiratory Distress, Crackles Cardiovascular: Regular Rate, Rhythm, No Edema, Normal Peripheral Pulses Gastrointestinal: Normal Bowel Sounds, Non Tender, Soft; No Distended, No Guarding Back: Normal Inspection, No CVA Tenderness, No Vertebral Tenderness, Other (Paravertebral tenderness in her lower back) Extremity: Normal Capillary Refill, Normal Range of Motion, No Calf Tenderness, No Pedal Edema, Other (Pain along the lateral left and right hip, some skin breakdown along the left hip with a stage I decubitus) Neurologic/Psychiatric: Alert, Oriented x3, No Motor/Sensory Deficits, Normal Mood/Affect, recycling technician II-XII Norm as Tested Skin: Normal Color, Warm/Dry Lymphatic: No Adenopathy Focused Exam Lactate Level 06/25/22 18:36: Lactic Acid Level 1.30 Lactic Acid Level Laboratory Tests Test 06/25/22 18:36 Lactic Acid Level 1.30 MMOL/L (0.50-2.00) Progress/Results/Core Measures Suspected Sepsis SIRS Temperature: Pulse: Respiratory Rate: Laboratory Tests 06/25/22 18:36: White Blood Count 19.5H Blood Pressure / Mean: 06/25/22 18:36: Lactic Acid Level 1.30 Laboratory Tests 06/25/22 18:36: Creatinine 0.87, Platelet Count 457H, Total Bilirubin 0.6 Results/Orders Lab Results Laboratory Tests Test 06/25/22 18:36 06/25/22 18:58 Range/Units White Blood Count 19.5 H 4.3-11.0 10^3/uL Red Blood Count 4.18 3.80-5.11 10^6/uL Hemoglobin 11.6 11.5-16.0 g/dL Hematocrit 35 35-52 % Mean Corpuscular Volume 84 80-99 fL Mean Corpuscular Hemoglobin 28 25-34 pg Mean Corpuscular Hemoglobin Concent 33 32-36 g/dL Red Cell Distribution Width 17.7 H 10.0-14.5 % Platelet Count 457 H 130-400 10^3/uL Mean Platelet Volume 10.1 9.0-12.2 fL Immature Granulocyte % (Auto) 0 % Neutrophils (%) (Auto) 91 H 42-75 % Lymphocytes (%) (Auto) 6 L 12-44 % Monocytes (%) (Auto) 3 0-12 % Eosinophils (%) (Auto) 0 0-10 % Basophils (%) (Auto) 0 0-10 % Neutrophils # (Auto) 17.6 H 1.8-7.8 10^3/uL Lymphocytes # (Auto) 1.2 1.0-4.0 10^3/uL Monocytes # (Auto) 0.5 0.0-1.0 10^3/uL Eosinophils # (Auto) 0.0 0.0-0.3 10^3/uL Basophils # (Auto) 0.0 0.0-0.1 10^3/uL Immature Granulocyte # (Auto) 0.1 0.0-0.1 10^3/uL Neutrophils % (Manual) 97 % Lymphocytes % (Manual) 9 % Monocytes % (Manual) 4 % Sodium Level 131 L 135-145 MMOL/L Potassium Level 3.9 3.6-5.0 MMOL/L Chloride Level 92 L 98-107 MMOL/L Carbon Dioxide Level 28 21-32 MMOL/L Anion Gap 11 5-14 MMOL/L Blood Urea Nitrogen 21 H 7-18 MG/DL Creatinine 0.87 0.60-1.30 MG/DL Estimat Glomerular Filtration Rate 69 BUN/Creatinine Ratio 24 Glucose Level 111 H 70-105 MG/DL Lactic Acid Level 1.30 0.50-2.00 MMOL/L Calcium Level 9.3 8.5-10.1 MG/DL Corrected Calcium 10.2 H 8.5-10.1 MG/DL Magnesium Level 1.8 1.6-2.4 MG/DL Total Bilirubin 0.6 0.1-1.0 MG/DL Aspartate Amino Transf (AST/SGOT) 30 5-34 U/L Alanine Aminotransferase (ALT/SGPT) 11 0-55 U/L Alkaline Phosphatase 137 H 40-136 U/L Pro-B-Type Natriuretic Peptide 429.1 <450.0 PG/ML Total Protein 7.2 6.4-8.2 GM/DL Albumin 2.9 L 3.2-4.5 GM/DL Lipase 9 8-78 U/L Urine Color YELLOW Urine Clarity SLIGHTLY CLOUDY Urine pH 5.0 5-9 Urine Specific [place] >=1.030 1.016-1.022 Urine Protein TRACE H NEGATIVE Urine Glucose (UA) NEGATIVE NEGATIVE Urine Ketones NEGATIVE NEGATIVE Urine Nitrite NEGATIVE NEGATIVE Urine Bilirubin 1+ H NEGATIVE Urine Urobilinogen 0.2 < = 1.0 MG/DL Urine Leukocyte Esterase NEGATIVE NEGATIVE Urine RBC (Auto) TRACE-I H NEGATIVE Urine RBC NONE /HPF Urine WBC NONE /HPF Urine Squamous Epithelial Cells 2-5 /HPF Urine Crystals NONE /LPF Urine Bacteria FEW H /HPF Urine Casts NONE /LPF Urine Mucus LARGE H /LPF Urine Culture Indicated YES My Orders Orders - RULA ORDOÑEZ MD Cbc With Automated Diff (06/25/22 18:33) Comprehensive Metabolic Panel (06/25/22 18:33) Lactic Acid Analyzer (06/25/22 18:33) Lipase (06/25/22 18:33) Magnesium (06/25/22 18:33) Ua Culture If Indicated (06/25/22 18:33) Probnp Fs (06/25/22 18:33) Ct Head/Cervical Spine Wo (06/25/22 18:33) Ct Lumbar Spine Wo (06/25/22 18:33) Ct Pelvis Wo (06/25/22 18:33) Chest 1 View Ap/Pa Only (06/25/22 18:33) Ns Iv 1000 Ml (Sodium Chloride 0.9%) (06/25/22 18:33) Hydrocodone/Apap 5/325 Tablet (Lortab 5 (06/25/22 18:45) Elbow 3 View Left (06/25/22 18:40) Elbow 3 View Right (06/25/22 18:40) Ed Iv/Invasive Line Start (06/25/22 18:40) Ekg Tracing (06/25/22 18:40) Manual Differential (06/25/22 18:36) Catheter(Urinary) Insert & Ass 03,15 (06/25/22 18:45) Creatine Kinase (06/25/22 18:36) Urine Culture (06/25/22 18:58) Oxycodone Immediate Rel Tablet (Oxyir Ta (06/25/22 20:00) Ceftriaxone 1 Gm Pre-Mix (Rocephin 1 Gm (06/25/22 20:15) Doxycycline Hyclate Tablet (Vibramycin T (06/25/22 20:09) Vancomycin Injection (Vancomycin Injecti (06/25/22 20:45) Medications Given in ED Current Medications Medications Dose Ordered Sig/Adrina Route Start Time Stop Time Status Last Admin Dose Admin Acetaminophen/ Hydrocodone Bitart 1 ea ONCE ONCE PO 06/25/22 18:45 06/25/22 18:46 DC 06/25/22 18:41 1 EA Ceftriaxone Sodium/Dextrose 50 ml @ 100 mls/hr ONCE ONCE IV 06/25/22 20:15 06/25/22 20:44 DC 06/25/22 20:31 100 MLS/HR Oxycodone HCl 5 mg ONCE ONCE PO 06/25/22 20:00 06/25/22 20:01 DC 06/25/22 20:04 5 MG Vital Signs/I&O 06/25/22 18:24 Temp 36.4 Pulse 106 Resp 24 B/P (MAP) 139/61 (87) Pulse Ox 100 O2 Delivery Room Air Capillary Refill : Progress Note : Progress Note 77-year-old female with above history presenting after a fall with prolonged downtime. ABCs were intact, GCS 15, vital stable on presentation. Physical exam with left hip pain and left-sided pain in general. CT head, cervical spine, lumbar spine, and pelvis obtained. This was significant for rib fractures on the left that were seen on the CT lumbar spine. Chest x-ray with left lower lobe pneumonia. She was given ceftriaxone, doxycycline, and Comycin given the recent influenza A history with potential for MRSA infection. CT head negative for acute findings. X-ray of the bilateral elbows otherwise negative. Lab work with normal kidney function, patient is urinating. No clinical signs of rhabdomyolysis. CK is pending at this time, however the prolonged downtime was more than 30 hours ago, and I would suspect changes to her urine at this point. Contacted Dr. Allen because the patient is requesting to be admitted to [facility]. She admitted her for further evaluation and management. ECG Initial ECG Impression Date: Jun 25, 2022 Initial ECG Impression Time: 18:53 Initial ECG Rate: 105 Initial ECG Rhythm: Normal Sinus Comment Narrow QRS, normal axis, no STEMI Diagnostic Imaging Diagonstic Imaging: Xray (xray bilateral elbows and chest), CT (head, c spine, l spine, pelvis) Comments [facility] [place], [place] NAME: KESHIA BOLES [facility] REC#: [id number] PT STATUS: REG ER : 1945 PHYSICIAN: RULA ORDOÑEZ MD ADMIT DATE: 06/25/22/ER FS Draft Date of Exam:06/25/22 CT LUMBAR SPINE WO CLINICAL INDICATION: Patient status post fall. EXAM: Axial CT scan of the lumbar spine performed without IV contrast. Sagittal and coronal reformatted images were created. Auto Exposure Controls were utilized during the CT exam to meet ALARA standards for radiation dose reduction. COMPARISON: CT scan of the abdomen and pelvis with contrast dated 12/29/2021. FINDINGS: There is no acute lumbar spine fracture or dislocation. There are nondisplaced fractures involving the posterior aspects of the left T11 and T12 ribs. There is lumbar spine degenerative disease with hypertrophic spurs and facet arthropathy. There is fusion of the L4-L5 vertebra. There are diffuse disk bulges seen throughout the lumbar spine. There is severe bilateral L4-L5 and L5-S1 neural foramen narrowing. There is moderate to severe right L3-L4 neural foramen narrowing and moderate left L3-L4 neural foramen narrowing. There is severe central canal stenosis at the L2-L3 and L3-L4 levels. There is at least mild to moderate central canal stenosis at the L4-L5 level. There is no significant paraspinal soft tissue abnormality. There is vascular ectasia of the infrarenal distal abdominal aorta which measures 2.5 cm in transverse dimension. The AP dimension is unable to be visualized on this exam and cannot be measured. There is fat stranding in the upper pelvis seen with multiple lymph nodes. This is of unknown significance. This area appears more increased compared to the prior study and patient was noted to have inflammation and lymph nodes in the lower abdomen. IMPRESSION: 1: There are fractures involving the posterior aspect of left T11 and T12 ribs. 2: There is severe multilevel lumbar spine degenerative disease with no evidence of acute lumbar spine fracture. 3: There is fat stranding and lymph nodes in the upper pelvis/lower abdominal region which appears increased compared to prior study. CT scan of the abdomen and pelvis may help better evaluate. Dictated on workstation # [id number] Dict: 06/25/221929 Trans: 06/25/221941 [facility] [phone] Interpreted by: TERESITA HUBBARD MD Electronically signed by: [facility] [place], [place] NAME: KESHIA BOLES [facility] REC#: [id number] PT STATUS: REG ER : 1945 PHYSICIAN: RULA ORDOÑEZ MD ADMIT DATE: 06/25/22/ER FS Signed Date of Exam:06/25/22 CT PELVIS WO PROCEDURE: CT pelvis without contrast. TECHNIQUE: Multiple contiguous axial images were obtained through the pelvis without the use of intravenous contrast. Sagittal and coronal reformations were performed. Auto Exposure Controls were utilized during the CT exam to meet ALARA standards for radiation dose reduction. INDICATION: Pain after fall. FINDINGS: There are degenerative changes in the lumbar spine. The sacroiliac joints appear to intact. The bony pelvis is intact. The obturator rings are intact. Proximal femurs are intact. Soft tissues are grossly unremarkable. There is a Hernandez catheter in the bladder. IMPRESSION: 1. Degenerative changes in the lumbar spine. 2. No acute fracture or dislocation about the pelvis. Dictated by: Dictated on workstation # [id number] Dict: 06/25/221926 Trans: 06/25/221943 [facility] [phone] Interpreted by: RAMANDEEP ARAIZA MD Electronically signed by: RAMANDEEP ARAIZA MD 06/25/221943 [facility] [place], [place] NAME: KESHIA BOLES [facility] REC#: [id number] PT STATUS: REG ER : 1945 PHYSICIAN: RULA ORDOÑEZ MD ADMIT DATE: 06/25/22/ER FS Draft Date of Exam:06/25/22 ELBOW 3 VIEW RIGHT Clinical indication: Patient status post fall with elbow pain. Exam: X-ray of the right elbow, 3 views. Comparison: None. Findings and impression: 1: There is no acute fracture or dislocation. There is no elbow effusion. 2: There are degenerative spurs involving the medial and lateral aspects of the elbow and distal humeral epicondylar regions. Dictated on workstation # [id number] Dict: 06/25/221949 Trans: 06/25/221953 [facility] [id number] Interpreted by: TERESITA HUBBARD MD Electronically signed by: [facility] [place] [place] NAME: KESHIA BOLES [facility] REC#: [id number] PT STATUS: REG ER : 1945 PHYSICIAN: RULA ORDOÑEZ MD ADMIT DATE: 06/25/22/ER FS Draft Date of Exam:06/25/22 ELBOW 3 VIEW LEFT INDICATION: Pain. EXAMINATION: Three views were obtained. FINDINGS: The alignment is normal. There are mild degenerative changes. There is no acute fracture or dislocation. Soft tissues are unremarkable. IMPRESSION: Mild degenerative changes; however, no acute fracture or dislocation. Dictated on workstation # [id number] Dict: 06/25/221949 Trans: 06/25/221953 [facility] [phone] Interpreted by: RAMANDEEP ARAIZA MD Electronically signed by: [facility] [place] [place] NAME: KESHIA BOLES [facility] REC#: [id number] PT STATUS: REG ER : 1945 PHYSICIAN: RULA ORDOÑEZ MD ADMIT DATE: 06/25/22/ER FS Draft Date of Exam:06/25/22 CHEST 1 VIEW AP/PA ONLY CLINICAL INDICATION: Patient with shortness of breath and recent flu. EXAM: Portable chest x-ray upright view. COMPARISON: Chest x-ray dated 12/30/2021. FINDINGS: There is small to moderate amount of patchy airspace infiltrates involving the right lung base. Increased lung markings throughout both lungs are seen. There is small right pleural effusion. There is no pneumothorax. Pulmonary vasculature and cardiac silhouette are within normal limits. Postop change to the chest are again seen. IMPRESSION: There is interval development of right lung base infiltrate concerning for pneumonia. Dictated on workstation # [id number] Dict: 06/25/221948 Trans: 06/25/221952 [facility] [phone] Interpreted by: TERESITA HUBBARD MD Electronically signed by: NAME: KESHIA [facility]OLES [facility] REC#: [id number] PT STATUS: REG ER : 1945 PHYSICIAN: RULA ORDOÑEZ MD ADMIT DATE: 06/25/22/ER FS Signed Date of Exam:06/25/22 CT HEAD/CERVICAL SPINE WO Clinical Indication: Patient status post fall. Exam: Head CT without IV contrast with sagittal and coronal reformations. Axial CT scan of the cervical spine with sagittal and coronal reformations. Auto Exposure Controls were utilized during the CT exam to meet ALARA standards for radiation dose reduction. Comparison: None. Findings: Head CT: There is no evidence of acute cerebral infarct, intracranial hemorrhage or gross mass effect. The brain parenchymal volume appears appropriate for patient's age. There are patchy and confluent areas of low-density involving the white matter of both cerebral hemispheres and periventricular regions, likely representing chronic small vessel ischemic disease and leukoaraiosis. There is normal younger-white matter distinction. There is no significant midline shift or herniation. There is no evidence of hydrocephalus. The basal cisterns are unremarkable. There is no skull fracture. There is extracranial scalp nodular areas involving the top of the head which may represent sebaceous cysts or epidermoid cysts. There is a moderate-sized air-fluid level in the right maxillary sinus with mucosal thickening. There is a small air-fluid level in the left maxillary sinus with peripheral mucosal thickening. Temporal bones show no significant abnormality. CT cervical spine: There is no acute cervical spine fracture. There is grade 1 anterolisthesis of C4 on C5 but no pars defect. There are cervical spine vertebral body spurs and facet arthropathy. There is no significant neck soft tissue abnormality. Emphysematous lung disease is seen. Impression: 1: There is no evidence of acute intracranial process. There is no skull fracture. 2: There is cervical spine degenerative disease with no acute fracture. Dictated by: Dictated on workstation # [id number] Dict: 06/25/221918 Trans: 06/25/222032 [facility] [phone] Interpreted by: TERESITA HUBBARD MD Electronically signed by: TERESITA HUBBARD MD 06/25/222032 Departure Impression Primary Impression: Fall Qualified Codes: W19.XXXA - Unspecified fall, initial encounter Additional Impressions: Pneumonia Qualified Codes: J18.9 - Pneumonia, unspecified organism Rib fractures Qualified Codes: S22.42XA - Multiple fractures of ribs, left side, initial encounter for closed fracture Elbow pain Qualified Codes: M25.521 - Pain in right elbow; M25.522 - Pain in left elbow Disposition: XFER [facility] Condition: Stable Admissions Decision to Admit/Date: Jun 25, 2022 Time/Decision to Admit Time: 20:30 Transfer Transfer Reason: Patient preference Transfer Progress Notes Accepted by Dr. Allen to [facility]. Patient preference was [address] Transfer Facility: [facility] Method of Transfer: EMS Departure-Patient Inst. Referrals: DREA MEDINA MD (PCP/Family) Primary Care Physician RULA ORDOÑEZ MD Jun 25, 2022 18:40
[2022-06-25 18:43] LABS: BASOPHILS % (AUTO) 0 % (0-10); EOSINOPHILS % (AUTO) 0 % (0-10); HEMATOCRIT 35 % (35-52); HEMOGLOBIN 11.6 g/dL (11.5-16.0); LYMPHOCYTES # (AUTO) 1.2 10^3/uL (1.0-4.0); LYMPHOCYTES % (AUTO) 6 % (12-44); MEAN CORPUSCULAR HEMOGLOBIN 28 pg (25-34); MEAN CORPUSCULAR HGB CONC 33 g/dL (32-36); MEAN CORPUSCULAR VOLUME 84 fL (80-99); MEAN PLATELET VOLUME 10.1 fL (9.0-12.2); MONOCYTES # (AUTO) 0.5 10^3/uL (0.0-1.0); MONOCYTES % (AUTO) 3 % (0-12); NEUTROPHILS # (AUTO) 17.6 10^3/uL (1.8-7.8); NEUTROPHILS % (AUTO) 91 % (42-75); PLATELET COUNT 457 10^3/uL (130-400); WHITE BLOOD COUNT 19.5 10^3/uL (4.3-11.0)
[2022-06-25] MEDS ORDERED: HYDROcodone/APAP 5 MG/325 MG (LORTAB) TAB PO ONE (18:45)
[2022-06-25 19:03] LABS: COLOR,URINE YELLOW; GLUCOSE, URINE (UA) NEGATIVE (NEGATIVE); KETONES,URINE NEGATIVE (NEGATIVE); LEUKOCYTE ESTERASE ,URINE NEGATIVE (NEGATIVE); NITRITE,URINE NEGATIVE (NEGATIVE); PROTEIN,URINE TRACE (NEGATIVE)
[2022-06-25 19:04] LABS: CLARITY,URINE SLIGHTLY CLOUDY
[2022-06-25 19:05] LABS: BACTERIA,URINE FEW /HPF; BILIRUBIN,URINE 1+ (NEGATIVE)
[2022-06-25 19:06] LABS: BILIRUBIN,TOTAL 0.6 MG/DL (0.1-1.0); CALCIUM 9.3 MG/DL (8.5-10.1); CREATININE SERUM 0.87 MG/DL (0.60-1.30); MAGNESIUM 1.8 MG/DL (1.6-2.4); POTASSIUM 3.9 MMOL/L (3.6-5.0)
[2022-06-25 19:07] LABS: ALBUMIN 2.9 GM/DL (3.2-4.5); TOTAL PROTEIN 7.2 GM/DL (6.4-8.2)
--- NOTE | 2022-06-25 19:30 | Diagnostic Imaging Report ---
PROCEDURE: CT pelvis without contrast. TECHNIQUE: Multiple contiguous axial images were obtained through the pelvis without the use of intravenous contrast. Sagittal and coronal reformations were performed. Auto Exposure Controls were utilized during the CT exam to meet ALARA standards for radiation dose reduction. INDICATION: Pain after fall. FINDINGS: There are degenerative changes in the lumbar spine. The sacroiliac joints appear to intact. The bony pelvis is intact. The obturator rings are intact. Proximal femurs are intact. Soft tissues are grossly unremarkable. There is a Hernandez catheter in the bladder. IMPRESSION: 1. Degenerative changes in the lumbar spine. 2. No acute fracture or dislocation about the pelvis. Dictated by: Dictated on workstation # [id number]
--- NOTE | 2022-06-25 19:43 | Diagnostic Imaging Report ---
CLINICAL INDICATION: Patient status post fall. EXAM: Axial CT scan of the lumbar spine performed without IV contrast. Sagittal and coronal reformatted images were created. Auto Exposure Controls were utilized during the CT exam to meet ALARA standards for radiation dose reduction. COMPARISON: CT scan of the abdomen and pelvis with contrast dated 12/29/2021. FINDINGS: There is no acute lumbar spine fracture or dislocation. There are nondisplaced fractures involving the posterior aspects of the left T11 and T12 ribs. There is lumbar spine degenerative disease with hypertrophic spurs and facet arthropathy. There is fusion of the L4-L5 vertebra. There are diffuse disk bulges seen throughout the lumbar spine. There is severe bilateral L4-L5 and L5-S1 neural foramen narrowing. There is moderate to severe right L3-L4 neural foramen narrowing and moderate left L3-L4 neural foramen narrowing. There is severe central canal stenosis at the L2-L3 and L3-L4 levels. There is at least mild to moderate central canal stenosis at the L4-L5 level. There is no significant paraspinal soft tissue abnormality. There is vascular ectasia of the infrarenal distal abdominal aorta which measures 2.5 cm in transverse dimension. The AP dimension is unable to be visualized on this exam and cannot be measured. There is fat stranding in the upper pelvis seen with multiple lymph nodes. This is of unknown significance. This area appears more increased compared to the prior study and patient was noted to have inflammation and lymph nodes in the lower abdomen. IMPRESSION: 1: There are fractures involving the posterior aspect of left T11 and T12 ribs. 2: There is severe multilevel lumbar spine degenerative disease with no evidence of acute lumbar spine fracture. 3: There is fat stranding and lymph nodes in the upper pelvis/lower abdominal region which appears increased compared to prior study. CT scan of the abdomen and pelvis may help better evaluate. Dictated by: Dictated on workstation # [id number]
[2022-06-25 19:44] LABS: LYMPHOCYTES % (MANUAL) 9 %; MONOCYTES % (MANUAL) 4 %; NEUTROPHILS % (MANUAL) 97 %
--- NOTE | 2022-06-25 19:53 | Diagnostic Imaging Report ---
CLINICAL INDICATION: Patient with shortness of breath and recent flu. EXAM: Portable chest x-ray upright view. COMPARISON: Chest x-ray dated 12/30/2021. FINDINGS: There is small to moderate amount of patchy airspace infiltrates involving the right lung base. Increased lung markings throughout both lungs are seen. There is small right pleural effusion. There is no pneumothorax. Pulmonary vasculature and cardiac silhouette are within normal limits. Postop change to the chest are again seen. IMPRESSION: There is interval development of right lung base infiltrate concerning for pneumonia. Dictated by: Dictated on workstation # [id number]
--- NOTE | 2022-06-25 19:54 | Diagnostic Imaging Report ---
INDICATION: Pain. EXAMINATION: Three views were obtained. FINDINGS: The alignment is normal. There are mild degenerative changes. There is no acute fracture or dislocation. Soft tissues are unremarkable. IMPRESSION: Mild degenerative changes; however, no acute fracture or dislocation. Dictated by: Dictated on workstation # [id number]
--- NOTE | 2022-06-25 19:55 | Diagnostic Imaging Report ---
Clinical indication: Patient status post fall with elbow pain. Exam: X-ray of the right elbow, 3 views. Comparison: None. Findings and impression: 1: There is no acute fracture or dislocation. There is no elbow effusion. 2: There are degenerative spurs involving the medial and lateral aspects of the elbow and distal humeral epicondylar regions. Dictated by: Dictated on workstation # [id number]
[2022-06-25] MEDS ORDERED: DOXYCYCLINE 100 MG (VIBRAMYCIN) TABLET PO STA (20:09)
[2022-06-25] MEDS ORDERED: cefTRIAXone 1 GM PRE-MIX 50 ML IV ONE (20:15)
--- NOTE | 2022-06-25 20:27 | Diagnostic Imaging Report ---
Clinical Indication: Patient status post fall. Exam: Head CT without IV contrast with sagittal and coronal reformations. Axial CT scan of the cervical spine with sagittal and coronal reformations. Auto Exposure Controls were utilized during the CT exam to meet ALARA standards for radiation dose reduction. Comparison: None. Findings: Head CT: There is no evidence of acute cerebral infarct, intracranial hemorrhage or gross mass effect. The brain parenchymal volume appears appropriate for patient's age. There are patchy and confluent areas of low-density involving the white matter of both cerebral hemispheres and periventricular regions, likely representing chronic small vessel ischemic disease and leukoaraiosis. There is normal younger-white matter distinction. There is no significant midline shift or herniation. There is no evidence of hydrocephalus. The basal cisterns are unremarkable. There is no skull fracture. There is extracranial scalp nodular areas involving the top of the head which may represent sebaceous cysts or epidermoid cysts. There is a moderate-sized air-fluid level in the right maxillary sinus with mucosal thickening. There is a small air-fluid level in the left maxillary sinus with peripheral mucosal thickening. Temporal bones show no significant abnormality. CT cervical spine: There is no acute cervical spine fracture. There is grade 1 anterolisthesis of C4 on C5 but no pars defect. There are cervical spine vertebral body spurs and facet arthropathy. There is no significant neck soft tissue abnormality. Emphysematous lung disease is seen. Impression: 1: There is no evidence of acute intracranial process. There is no skull fracture. 2: There is cervical spine degenerative disease with no acute fracture. Dictated by: Dictated on workstation # [id number]
[2022-06-25] MEDS ORDERED: VANCOMYCIN INJECTION 1,000 MG in NS (IVPB) 250 ML IV ONE (20:45)
[2022-06-25] MEDS ORDERED: ONDANSETRON 4 MG/2 ML (SDV) Z0FRAN IVP ONE (21:15)
[2022-06-25 22:15] VITALS: BP 141/68
== END 2022-06-25 22:17 | disposition short-term general hospital (02) ==
LOC: EDUNIT# 18:20 → ER FS 18:22
DX: S22.42XA Multiple fractures of ribs, left side, initial encounter for closed fracture (principal); M25.552 Pain in left hip; M25.522 Pain in left elbow; M25.521 Pain in right elbow; J18.9 Pneumonia, unspecified organism; W01.0XXA Fall on same level from slipping, tripping and stumbling without subsequent striking against object, initial encounter
CPT/HCPCS: 36415; 51702; 70450; 71045; 72125; 72131; 72192; 73080; 80053; 81000; 82550; 83605; 83690; 83735; 83880; 85007; 85027; 87077; 87088; 87186; 93005

== ENCOUNTER → 2023-02-21 | Outpatient (CLI) | payer MEDICARE, MEDICAID ==
[~2023-02-21] MED LIST changes: +CATHETER FLUSH 10 ML SYR IVP PRN
== END ==
LOC: RAD 13:15
PROVIDERS: ATTEND Family Medicine
DX: R91.1 Solitary pulmonary nodule (principal); Z85.59 Personal history of malignant neoplasm of other urinary tract organ

== ENCOUNTER → 2023-02-21 | Outpatient (CLI) | payer MEDICARE, MEDICAID ==
[~2023-02-21] MED LIST changes: -CATHETER FLUSH 10 ML SYR IVP PRN
--- NOTE | 2023-02-21 15:50 | Diagnostic Imaging Report ---
Indication: Initial staging renal cell carcinoma. Serum blood glucose level at the time of injection is 81 mg/dL. Patient was administered 9.8 mCi F-18 FDG intravenously in the left antecubital location and PET imaging was performed from the top of skull to mid thighs. Noncontrast CT was also performed for attenuation correction and anatomic correlation. No prior PET/CT studies available for comparison. Comparison is made with outside CT study from 01/17/2023. There is symmetric activity throughout the brain. Soft tissues of the neck are unremarkable. There is a hypermetabolic nodule in the superior segment of the right lower lobe measuring approximately 1 cm in size. This has an SUV max of 9.1. No other hypermetabolic foci within the lungs are seen. No definite mediastinal or hilar hypermetabolism is identified. Physiologic activity throughout the gastrointestinal and genitourinary tract is noted in the abdomen and pelvis. No suspicious hypermetabolic foci are seen. There appear to be post-therapeutic changes involving the left kidney, perhaps from prior ablation. There is some generalized osseous uptake. There is borderline uptake involving the ribs and spine as well as the long bones and bony pelvis, indeterminate. Correlation with bone scan would be useful. IMPRESSION: There is a hypermetabolic nodule in the superior segment right lower lobe, concerning for neoplasm. No other suspicious metabolic foci are identified. There is some generalized marrow uptake throughout the axial and appendicular skeleton. Correlation with whole-body bone scan would be useful for further evaluation. Dictated by: Dictated on workstation # [id number]
== END ==
LOC: RAD 12:12
PROVIDERS: ATTEND Family Medicine
DX: C64.9 Malignant neoplasm of unspecified kidney, except renal pelvis (principal); R91.1 Solitary pulmonary nodule
CPT/HCPCS: 78815; 82947; A9552

== ENCOUNTER 2023-04-03 19:10 | Inpatient (IN) | payer MEDICARE, MEDICAID ==
[~2023-04-03] VITALS: Ht 154.9 cm; Wt 58.6 kg
[2023-04-03 19:21] VITALS: BP 110/53
--- NOTE | 2023-04-03 19:23 | ED General ---
General Chief Complaint: Dizziness/Syncope Stated Complaint: DIZZYNESS Source of Information: Patient, EMS, Old Records Exam Limitations: No Limitations History of Present Illness Date Seen by Provider: Apr 03, 2023 Time Seen by Provider: 19:14 Initial Comments 78yoF with PMH of CAD s/p CABG, HTN, HLD, COPD that does not take any medicines daily coming in via EMS from home due to lightheadedness, general weakness, and 1 week of nonbloody nonbilious vomiting and nonbloody diarrhea. She believes that she could have had a fever all week as well, but she is unsure. Denies any chest pain, shortness of breath, abdominal pain, rash, focal weakness or numbness, or any other concerns. She has been eating and drinking slightly less. She gets around with a wheelchair and does transfers herself. EMS reports she was in Afib with RVR in the 170's, but difficult to tell due to low voltages. Glucose per EMS was 93. Allergies and Home Medications Allergies Coded Allergies: No Known Drug Allergies (Verified , 04/03/23) Patient Home Medication List Home Medication List Reviewed: Yes Acetaminophen (Tylenol Extra Strength) 500 Mg Tablet, 1,000 MG PO Q8H PRN for PAIN-MILD (1-4), (Reported) Entered as Reported by: JEAN CHAUDHARI on 12/29/21 1110 Amoxicillin/Potassium Clav (Amox Tr-K Clv 875-125 mg Tab) 875 Mg-125 Mg Tablet, 1 EACH PO BID Prescribed by: FREDDY NARANJO on 01/02/22 1201 Prednisone (Prednisone) 10 Mg Tab.ds.pk, 10 MG PO DAILY Prescribed by: FREDDY NARANJO on 01/02/22 1201 Review of Systems Review of Systems Constitutional: fever, malaise, weakness EENTM: no symptoms reported Respiratory: cough Cardiovascular: no symptoms reported Gastrointestinal: see HPI Genitourinary: no symptoms reported Musculoskeletal: no symptoms reported Skin: no symptoms reported Psychiatric/Neurological: No Symptoms Reported Hematologic/Lymphatic: No Symptoms Reported Immunological/Allergic: no symptoms reported Past Pbbchxa-Huebeq-Whhblu Hx Patient Social History Tobacco Use?: Yes Tobacco type used: Cigarettes Immunizations Up To Date First/Initial COVID19 Vaccinat: 2020 Second COVID19 Vaccination Maksim: 2020 Seasonal Allergies Seasonal Allergies: No Past Medical History Surgeries: Yes (each knee arthroscopy, L total shoulder replacement) CABG, Orthopedic Respiratory: Yes Asthma Cardiac: Yes (pt stopped all meds 7 yrs ago) Coronary Artery Disease, Heart Attack, Hypertension Neurological: No Reproductive Disorders: Yes Sexually Transmitted Disease: No Genitourinary: No Gastrointestinal: No Musculoskeletal: Yes Arthritis Endocrine: No HEENT: No Cancer: Yes Kidney Did You Recieve Any Treatments: Yes What Type of Treatment Did You: Surgical Intervention Psychosocial: No Blood Disorders: No Family Medical History Heart Disease, Hypertension Physical Exam Vital Signs Vital Signs - First Documented 04/03/23 19:10 Temp 37.3 Pulse 90 Resp 16 B/P (MAP) 130/65 (86) Pulse Ox 96 O2 Delivery Room Air Capillary Refill : Height, Weight, BMI Height: 5'3.00" Weight: 211lbs. 0.0oz. 95.525057wj; 23.00 BMI Method: General Appearance: No Apparent Distress, Chronically ill Eyes: Bilateral Eye Normal Inspection, Bilateral Eye PERRL HEENT: PERRL/EOMI, Normal ENT Inspection, Pharynx Normal Neck: Full Range of Motion, Normal Inspection, Non Tender, Supple Respiratory: Chest Non Tender, Lungs Clear, Normal Breath Sounds, No Accessory Muscle Use, No Respiratory Distress Cardiovascular: Normal Peripheral Pulses, Irregularly Irregular Gastrointestinal: Normal Bowel Sounds, Non Tender, Soft; No Distended, No Guarding Back: Normal Inspection, No CVA Tenderness Extremity: Normal Capillary Refill, Normal Range of Motion, Non Tender, No Calf Tenderness, Pedal Edema Neurologic/Psychiatric: Alert, Oriented x3, No Motor/Sensory Deficits, Normal Mood/Affect Skin: Normal Color, Warm/Dry Focused Exam Lactate Level 04/03/23 19:25: Lactic Acid Level 1.69 Lactic Acid Level Laboratory Tests Test 04/03/23 19:25 Lactic Acid Level 1.69 MMOL/L (0.50-2.00) Progress/Results/Core Measures Suspected Sepsis SIRS Temperature: Pulse: Respiratory Rate: Laboratory Tests 04/03/23 19:25: White Blood Count 6.2 Blood Pressure / Mean: 04/03/23 19:25: Lactic Acid Level 1.69 Laboratory Tests 04/03/23 19:25: Creatinine 0.70, INR Comment 1.3, Platelet Count 275, Total Bilirubin 0.3 Results/Orders Lab Results Laboratory Tests Test 04/03/23 19:25 Range/Units White Blood Count 6.2 4.3-11.0 10^3/uL Red Blood Count 3.43 L 3.80-5.11 10^6/uL Hemoglobin 10.0 L 11.5-16.0 g/dL Hematocrit 33 L 35-52 % Mean Corpuscular Volume 96 80-99 fL Mean Corpuscular Hemoglobin 29 25-34 pg Mean Corpuscular Hemoglobin Concent 31 L 32-36 g/dL Red Cell Distribution Width 18.3 H 10.0-14.5 % Platelet Count 275 130-400 10^3/uL Mean Platelet Volume 10.2 9.0-12.2 fL Immature Granulocyte % (Auto) 0 % Neutrophils (%) (Auto) 56 42-75 % Lymphocytes (%) (Auto) 36 12-44 % Monocytes (%) (Auto) 8 0-12 % Eosinophils (%) (Auto) 0 0-10 % Basophils (%) (Auto) 0 0-10 % Neutrophils # (Auto) 3.5 1.8-7.8 10^3/uL Lymphocytes # (Auto) 2.2 1.0-4.0 10^3/uL Monocytes # (Auto) 0.5 0.0-1.0 10^3/uL Eosinophils # (Auto) 0.0 0.0-0.3 10^3/uL Basophils # (Auto) 0.0 0.0-0.1 10^3/uL Immature Granulocyte # (Auto) 0.0 0.0-0.1 10^3/uL Prothrombin Time 16.8 H 12.2-14.7 SEC INR Comment 1.3 0.8-1.4 Activated Partial Thromboplast Time 36 H 24-35 SEC Sodium Level 133 L 135-145 MMOL/L Potassium Level 2.9 L 3.6-5.0 MMOL/L Chloride Level 96 L 98-107 MMOL/L Carbon Dioxide Level 30 21-32 MMOL/L Anion Gap 7 5-14 MMOL/L Blood Urea Nitrogen 13 7-18 MG/DL Creatinine 0.70 0.60-1.30 MG/DL Estimat Glomerular Filtration Rate 89 BUN/Creatinine Ratio 19 Glucose Level 90 70-105 MG/DL Lactic Acid Level 1.69 0.50-2.00 MMOL/L Calcium Level 7.0 L 8.5-10.1 MG/DL Corrected Calcium 9.2 8.5-10.1 MG/DL Total Bilirubin 0.3 0.1-1.0 MG/DL Aspartate Amino Transf (AST/SGOT) 8 5-34 U/L Alanine Aminotransferase (ALT/SGPT) 10 0-55 U/L Alkaline Phosphatase 131 40-136 U/L Troponin I < 0.30 <0.30 NG/ML Pro-B-Type Natriuretic Peptide 1711.0 H <450.0 PG/ML Total Protein 4.7 L 6.4-8.2 GM/DL Albumin 1.2 L 3.2-4.5 GM/DL Influenza Type A (RT-PCR) Not Detected Not Detecte Influenza Type B (RT-PCR) Not Detected Not Detecte SARS-CoV-2 RNA (RT-PCR) Not Detected Not Detecte My Orders Orders - RULA ORDOÑEZ MD Cbc With Automated Diff (04/03/23 19:20) Comprehensive Metabolic Panel (04/03/23 19:20) Blood Culture (04/03/23 19:20) Urinalysis (04/03/23 19:20) Urine Culture (04/03/23 19:20) Protime With Inr (04/03/23 19:20) Partial Thromboplastin Time (04/03/23 19:20) Chest 1 View Ap/Pa Only (04/03/23 19:20) Ed Iv/Invasive Line Start (04/03/23 19:20) Ekg Tracing (04/03/23 19:20) Vital Signs Adult Sepsis Patie Q15M (04/03/23 19:20) O2 (04/03/23 19:20) Remove Rings In Anticipation O (04/03/23 19:20) Lactic Acid Analyzer (04/03/23 19:20) Influenza A And B By Pcr (04/03/23 19:20) Covid 19 Inhouse Test (04/03/23 19:20) Probnp Fs (04/03/23 19:20) Troponin I Fs (04/03/23 19:20) Diltiazem Injection (Diltiazem Injection (04/03/23 19:45) Diltiazem Drip Pre-Mix (Diltiazem Drip P (04/03/23 19:38) Enoxaparin Injection (04/03/23 20:00) Cefepime Injection (Cefepime Injection) (04/03/23 20:15) Potassium Cl 10meq/50ml Ivpb (Kcl 10 Meq (04/03/23 20:06) Magnesium 1 Gm/100 Ml Ivpb (Magnesium 1 (04/03/23 20:15) Ed Admission (Communication) (04/03/23 20:12) Medications Given in ED Current Medications Medications Dose Ordered Sig/Adrian Route Start Time Stop Time Status Last Admin Dose Admin Diltiazem HCl 10 mg ONCE ONCE IVP 04/03/23 19:45 04/03/23 19:46 DC 04/03/23 19:44 10 MG Enoxaparin Sodium 55 mg ONCE ONCE SC 04/03/23 20:00 04/03/23 20:01 DC 04/03/23 19:54 55 MG Vital Signs/I&O 04/03/23 04/03/23 04/03/23 19:10 19:44 19:45 Temp 37.3 Pulse 90 163 166 Resp 16 B/P (MAP) 130/65 (86) 118/66 118/66 Pulse Ox 96 O2 Delivery Room Air Capillary Refill : Progress Note : Progress Note 78-year-old female with above history coming in due to vomiting, diarrhea, general malaise, and EMS reporting A-fib with RVR. She was in A-fib with RVR, rates 140s 150s on arrival here. Physical exam otherwise unremarkable other than the significant lower extremity edema. EKG ordered and interpreted by me showing no acute ischemic changes, A-fib with RVR. Chest x-ray ordered and interpreted by me showing no obvious pneumonia or pneumothorax. No significant edema. An IV was placed and basic labs were obtained and were significant for mild anemia, normal white blood cell count, normal creatinine, low potassium at 2.9 (IV potassium given here), lactic acid normal, negative troponin, and elevated proBNP at 1700. Flu and COVID testing were negative. She was given a Cardizem bolus followed by a drip which did improve her heart rate significantly. Patient still symptomatic and still not feeling well. On arrival, when she stated she was febrile especially with the elevated heart rate, she was given cefepime. However with the normal white blood cell count, normal lactic, she is afebrile here, and no obvious bacterial infectious cause clinically, I do not necessarily think she needs to continue with the cefepime, and clinically is not septic. I would actually think she needs to have fluid pulled off of her with Lasix, and I think giving her IV fluids could be detrimental to her. I contacted Dr. Naranjo who will admit her to the intensive care unit for further evaluation and management. I then contacted Dr. 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 I then contacted the ICU physician for signout. ECG Initial ECG Impression Date: Apr 03, 2023 Initial ECG Impression Time: 19:29 Initial ECG Rate: 147 Initial ECG Rhythm: A Fib/Flutter Comment Narrow QRS, normal axis, no STEMI Diagnostic Imaging Diagonstic Imaging: Xray (chest) Comments [facility], [place] NAME: KESHIA BOLES [facility] REC#: [id number] PT STATUS: REG ER : 1945 PHYSICIAN: RULA ORDOÑEZ MD ADMIT DATE: 04/03/23/ER FS Signed Date of Exam:04/03/23 CHEST 1 VIEW AP/PA ONLY EXAMINATION: Chest 1 view. HISTORY: Near syncopal episode. Dizziness. COMPARISON: 06/25/2022. FINDINGS: The lung volumes are normal. No focal consolidation is seen. No large pleural effusion or pneumothorax is seen. Stable cardiac silhouette with post CABG changes. There is calcified aortic atherosclerotic plaque. No acute osseous abnormality is seen. Left shoulder arthroplasty is visualized. IMPRESSION: No acute pleuroparenchymal process. Dictated by: Dictated on workstation # [id number] Dict: 04/03/231950 Trans: 04/03/231999 PJE [id number] Interpreted by: DONITA MACHADO DO Electronically signed by: DONITA MACHADO DO 04/03/231999 Critical Care Note Critical Care Start Time: 19:14 Stop Time: 20:30 Total Time (minutes) 46 Progress Patient was at significant risk for hemodynamic compromise. I was frequently in the room reassessing her and discussing the case with other physicians. All time billed for critical care is separate from procedures. Departure Impression Primary Impression: Atrial fibrillation with RVR Additional Impression: Hypokalemia Disposition: 30 STILL A PATIENT Condition: Stable Admissions Decision to Admit Reason: Admit from ER (General) Decision to Admit/Date: Apr 03, 2023 Time/Decision to Admit Time: 20:05 Transfer Method of Transfer: EMS Departure-Patient Inst. Referrals: DREA MEDINA MD (PCP/Family) Primary Care Physician RULA ORDOÑEZ MD Apr 03, 2023 19:23
[2023-04-03] MEDS ORDERED: dilTIAZem DRIP PRE-MIX 125 ML IV STA (19:38)
[2023-04-03 19:40] LABS: BASOPHILS % (AUTO) 0 % (0-10); EOSINOPHILS % (AUTO) 0 % (0-10); HEMATOCRIT 33 % (35-52); LYMPHOCYTES # (AUTO) 2.2 10^3/uL (1.0-4.0); LYMPHOCYTES % (AUTO) 36 % (12-44); MEAN CORPUSCULAR HEMOGLOBIN 29 pg (25-34); MEAN CORPUSCULAR HGB CONC 31 g/dL (32-36); MEAN CORPUSCULAR VOLUME 96 fL (80-99); MEAN PLATELET VOLUME 10.2 fL (9.0-12.2); MONOCYTES # (AUTO) 0.5 10^3/uL (0.0-1.0); MONOCYTES % (AUTO) 8 % (0-12); NEUTROPHILS # (AUTO) 3.5 10^3/uL (1.8-7.8); NEUTROPHILS % (AUTO) 56 % (42-75); PLATELET COUNT 275 10^3/uL (130-400); WHITE BLOOD COUNT 6.2 10^3/uL (4.3-11.0)
[2023-04-03] MEDS ORDERED: dilTIAZem INJ 25 MG/5 ML VIAL IVP ONE (19:45)
[2023-04-03 19:49] LABS: INR 1.3 (0.8-1.4); PROTHROMBIN TIME PATIENT 16.8 SEC (12.2-14.7)
--- NOTE | 2023-04-03 19:54 | Diagnostic Imaging Report ---
EXAMINATION: Chest 1 view. HISTORY: Near syncopal episode. Dizziness. COMPARISON: 06/25/2022. FINDINGS: The lung volumes are normal. No focal consolidation is seen. No large pleural effusion or pneumothorax is seen. Stable cardiac silhouette with post CABG changes. There is calcified aortic atherosclerotic plaque. No acute osseous abnormality is seen. Left shoulder arthroplasty is visualized. IMPRESSION: No acute pleuroparenchymal process. Dictated by: Dictated on workstation # [id number]
[2023-04-03] MEDS ORDERED: ENOXAPARIN 60 MG/0.6 ML SYRINGE SC ONE (20:00)
[2023-04-03 20:01] LABS: ALANINE AMINOTRANSFERASE 10 U/L (0-55); ALBUMIN 1.2 GM/DL (3.2-4.5); ALKALINE PHOSPHATASE 131 U/L (40-136); BILIRUBIN,TOTAL 0.3 MG/DL (0.1-1.0); BUN/CREATININE RATIO 19; CARBON DIOXIDE 30 MMOL/L (21-32); CHLORIDE 96 MMOL/L (98-107); GFR ESTIMATED 89; GLUCOSE 90 MG/DL (70-105); POTASSIUM 2.9 MMOL/L (3.6-5.0); SODIUM 133 MMOL/L (135-145); TOTAL PROTEIN 4.7 GM/DL (6.4-8.2)
[2023-04-03] MEDS ORDERED: POTASSIUM CL 10MEQ/50ML IVPB 50 ML IV STA (20:06)
[2023-04-03] MEDS ORDERED: MAGNESIUM 1 GM/100 ML IVPB 100 ML IV ONE (20:15)
[2023-04-03] MEDS ORDERED: CEFEPIME INJECTION 1,000 MG in NS (IVPB) 50 ML 50 ML IV ONE (20:15)
[2023-04-03] MEDS ORDERED: NS (IVPB) 250 ML 250 ML IV ONE (20:45)
[2023-04-03] MEDS ORDERED: NS (IVPB) 250 ML 250 ML ONE (20:46)
[2023-04-03] MEDS ORDERED: CATHETER FLUSH 10 ML SYR IVP PRN (23:30)
[2023-04-03] MEDS ORDERED: ACETAMINOPHEN 500 MG TABLET PO PRN (23:30)
[2023-04-03] MEDS ORDERED: ASPIRIN 81 MG CHEWABLE TABLET PO ONE (23:30)
[2023-04-03] MEDS ORDERED: NS IV 500 ML 500 ML IV PRN (23:45)
[2023-04-04] MEDS ORDERED: POTASSIUM CL 10MEQ/50ML IVPB 150 ML IV ONE (01:33)
[2023-04-04] MEDS ORDERED: MAGNESIUM 1 GM/100 ML IVPB 100 ML IV ONE (01:33)
[2023-04-04] MEDS ORDERED: ASPIRIN 81 MG CHEWABLE TABLET ONE (01:35)
[2023-04-04] MEDS: POTASSIUM CL 10 MEQ/50 ML IVPB (PRE-MIX) IV SCH ×4 (01:37→05:46)
[2023-04-04] MEDS: MAGNESIUM 1 GM/D5W 100 ML IVPB IV SCH ×2 (01:37→02:44)
[2023-04-04] MEDS: RT-Ipratropium/Albuterol NEB 3 ML VIAL INH SCH ×4 (02:22→21:47)
[2023-04-04] MEDS: dilTIAZem DRIP 125 MG/125 ML DRIP IV SCH (04:35)
[2023-04-04 05:28] LABS: BASOPHILS % (AUTO) 0 % (0-10); EOSINOPHILS % (AUTO) 0 % (0-10); HEMATOCRIT 26 % (35-52); HEMOGLOBIN 8.3 g/dL (11.5-16.0); LYMPHOCYTES # (AUTO) 1.5 10^3/uL (1.0-4.0); LYMPHOCYTES % (AUTO) 34 % (12-44); MEAN CORPUSCULAR HEMOGLOBIN 30 pg (25-34); MEAN CORPUSCULAR HGB CONC 32 g/dL (32-36); MEAN CORPUSCULAR VOLUME 92 fL (80-99); MEAN PLATELET VOLUME 10.5 fL (9.0-12.2); MONOCYTES # (AUTO) 0.4 10^3/uL (0.0-1.0); MONOCYTES % (AUTO) 8 % (0-12); NEUTROPHILS # (AUTO) 2.6 10^3/uL (1.8-7.8); NEUTROPHILS % (AUTO) 58 % (42-75); PLATELET COUNT 226 10^3/uL (130-400); WHITE BLOOD COUNT 4.6 10^3/uL (4.3-11.0)
[2023-04-04 05:47] LABS: BILIRUBIN,TOTAL 0.2 MG/DL (0.1-1.0); CALCIUM 6.2 MG/DL (8.5-10.1); CREATININE SERUM 0.61 MG/DL (0.60-1.30); MAGNESIUM 2.4 MG/DL (1.6-2.4); PHOSPHORUS 2.3 MG/DL (2.3-4.7); POTASSIUM 3.1 MMOL/L (3.6-5.0); TOTAL PROTEIN 3.3 GM/DL (6.4-8.2)
[2023-04-04] MEDS: MAGNESIUM 1 GM/100 ML IVPB 100 ML IV SCH (06:08)
[2023-04-04] MEDS: POTASSIUM CHLORIDE 20 MEQ TABLET PO SCH (06:09)
[2023-04-04] MEDS: POTASSIUM CL 10MEQ/50ML IVPB 50 ML IV SCH ×3 (06:11→07:30)
[2023-04-04] MEDS ORDERED: POTASSIUM CL 10MEQ/50ML IVPB 50 ML IV ONE (06:25)
[2023-04-04] MEDS: CATHETER FLUSH 10 ML SYR IVP SCH ×3 (06:31→22:04)
[2023-04-04] MEDS: ASPIRIN 81 MG CHEWABLE TABLET PO SCH (08:30)
--- NOTE | 2023-04-04 08:31 | History & Physical-Hospitalist ---
History of Present Illness HPI/Chief Complaint Patient is a 78-year-old female with past medical history of coronary artery disease and CABG, hypertension, asthma who presented to the emergency department due to weakness with vomiting and diarrhea. She reports her symptoms started roughly 1 week ago she finally decided to come in because she was getting lightheaded. She was found to be tachycardic in the emergency department and EKG confirmed atrial fibrillation with rapid ventricular rate. She was started on a Cardizem drip and admitted to the ICU. This morning she reports feeling a little better but is still quite weak. She would like to eat as she is not nauseous at this time. She denies any history of atrial fibrillation that she knows of but she did think she had some heart problems after her heart attack. She sees Dr. MEDINA for primary care but has not seen a supervisor plastics does not regularly take her medications. Source: patient Date Seen 04/04/23 Time Seen by a Provider: 08:25 Attending Physician Ina Medina MD PCP Admitting Physician: Gabriela Foreman MD Attending Physician: Luke Mckeon MD Referring Physician Date of Admission Apr 03, 2023 at 21:51 Home Medications & Allergies Home Medications Reviewed patient Home Medication Reconciliation performed by pharmacy medication reconciliations emergency vehicle technician and/or nursing. Patients Allergies have been reviewed. Allergies Allergies Coded Allergies No Known Drug Allergies (Verified04/03/23) Past Zymfjhv-Tmmfts-Axxgkf Hx Patient Social History Employed/Student: retired Tobacco Use?: Yes Tobacco type used: Cigarettes Smoking Status: Current Everyday Smoker Use of E-Cig and/or Vaping dev: No Substance use?: No Alcohol Use?: No Pt feels they are or have been: No Immunizations Up To Date First/Initial COVID19 Vaccinat: three shots Second COVID19 Vaccination Maksim: 2020 Tetanus Booster (TDap): More Than 5 Years Hepatitis A: No Hepatitis B: No Seasonal Allergies Seasonal Allergies: No Current Status status: No status: No Advance Directives: No Communicates: Verbally Primary Language: Ukrainian Preferred Spoken Language: Ukrainian Is interpretation needed?: No Sensory deficits: Vision impairment Implanted or Applied Medical D: Orthopedic hardware, Stents Past Medical History Surgeries: CABG, Orthopedic Asthma Coronary Artery Disease, Heart Attack, Hypertension Sexually Transmitted Disease: No Arthritis Kidney Did You Recieve Any Treatments: Yes What Type of Treatment Did You: Surgical Intervention Blood Disorders: No Family Medical History Heart Disease, Hypertension Review of Systems Constitutional: see HPI Gastrointestinal: diarrhea, nausea, vomiting Physical Exam Physical Exam Vital Signs Vital Signs - First Documented 04/03/23 04/03/23 04/03/23 19:10 19:21 23:20 Temp 37.3 Pulse 90 Resp 16 B/P (MAP) 130/65 (86) Pulse Ox 96 O2 Delivery Room Air O2 Flow Rate 2.00 FiO2 28 Capillary Refill : Less Than 3 Seconds Height, Weight, BMI Height: 5'3.00" Weight: 211lbs. 0.0oz. 95.997891xs; 24.42 BMI Method: General Appearance: No Apparent Distress, Chronically ill, Thin Respiratory: Lungs Clear, No Respiratory Distress Cardiovascular: Regular Rate, Rhythm, No Murmur Gastrointestinal: Normal Bowel Sounds, Soft Neurologic/Psychiatric: Alert, Oriented x3 Results Results/Procedures Labs Laboratory Tests 04/06/23 04:00 Patient resulted labs reviewed. Imaging: Reviewed Imaging Report Imaging [facility], [place] NAME: KESHIA BOLES [facility] REC#: [id number] PT STATUS: REG ER : 1945 PHYSICIAN: RULA ORDOÑEZ MD ADMIT DATE: 04/03/23/ER FS Signed Date of Exam:04/03/23 CHEST 1 VIEW AP/PA ONLY EXAMINATION: Chest 1 view. HISTORY: Near syncopal episode. Dizziness. COMPARISON: 06/25/2022. FINDINGS: The lung volumes are normal. No focal consolidation is seen. No large pleural effusion or pneumothorax is seen. Stable cardiac silhouette with post CABG changes. There is calcified aortic atherosclerotic plaque. No acute osseous abnormality is seen. Left shoulder arthroplasty is visualized. IMPRESSION: No acute pleuroparenchymal process. Dictated by: Dictated on workstation # [id number] Dict: 04/03/231950 Trans: 04/03/231999 PJE [id number] Interpreted by: DONITA MACHADO DO Electronically signed by: DONITA MACHADO DO 04/03/231999 Assessment/Plan Admission Diagnosis A fib with RVR Admission Status: Inpatient Order (span 2 midnights) Reason for Inpatient Admission: see below Assessment and Plan A fib with RVR CAD HTN New onset- converted to sinus this AM Cardiology consulted, appreciate recs Eliquis for stroke ppx Echo ordered Debility Gastroentertis Send for c diff with large stools today and 1 week of diarrhea PT/OT Social Work consulted, appreciate recs Will likely need placement DVT ppx: Lovenox Diagnosis/Problems Diagnosis/Problems (1) Atrial fibrillation with RVR Status: Acute (2) Hypokalemia (3) CAD (coronary artery disease) (4) HTN (hypertension) LUKE MCKEON MD Apr 04, 2023 08:31
[2023-04-04] MEDS ORDERED: POTASSIUM CHLORIDE 20 MEQ TABLET PO ONE ×2 (08:45→10:45)
[2023-04-04] MEDS ORDERED: ENOXAPARIN 60 MG/0.6 ML SYRINGE SC SCH (09:00)
--- NOTE | 2023-04-04 09:34 | Tele-ICU Progress Note ---
Subjective Date Seen by a Provider: Apr 04, 2023 Time Seen by a Provider: 09:34 Subjective/Events-last exam (Tele-ICU Physician , consultation as per request of PCP Service provided via interactive audio and video telecommunications E-CARE system to a patient admitted to ICU bed in [facility]. Available chart/ vitals / labs / Images reviewed H&P is from ER notes Patient's information available about PMH, Shx, Fhx allergy reviewed inEMR. ROS as per chart and RN report Now in ICU, hemodynamically stable Video assessment done using teleICU camera, rest of exam as per RN Discussed with RN. Hospital course: (04/03) 78/F- Near syncope, fever for a week, significant cv hx. not on any RX. Afib, cardizem gtt. Cxr clear. Sepsis source UK . A/P A fin RVR - new onset - on cardizem gtt - lovenox 60 bid Anemia - no bleeding Replacing K Lines : periph , (Central Line Necessity Reviewed) Hernandez: PW OG: Nutrition: PO Analgesia: Anxiety/ delirium VTE Prophylaxis: vinh Stress Ulcer Prophylaxis: na Plans in collaboration with bedside consultants and IM MDs. Discussed with RN to reach out if any questions or concerns A total of 12 minutes of critical care time was devoted to this patient today, required to treat and/or prevent further deterioration of critical care condition ( as above ) . I am remotely monitoring this patient from another state. I am unable to do the bedside exam, and history/physical and pertinent information is taken from other notes in the computer and bedside staff. . Sepsis Event Evaluation Height, Weight, BMI Height: 5'3.00" Weight: 211lbs. 0.0oz. 95.195170em; 24.42 BMI Method: Focused Exam Lactate Level 04/03/23 19:25: Lactic Acid Level 1.69 Exam Exam Patient acknowledged, consented, and participated in this virtual visit which was conducted using real time audio/video Vital Signs Date Time Temp Pulse Resp B/P (MAP) Pulse Ox O2 Delivery O2 Flow Rate FiO2 04/04/23 09:00 94 27 131/64 (86) 91 Nasal Cannula 2.00 04/04/23 08:12 36.4 04/04/23 08:00 87 20 92/49 (63) 97 Nasal Cannula 2.00 04/04/23 07:45 84 04/04/23 07:26 100 Nasal Cannula 2.00 04/04/23 07:00 78 16 113/59 (77) 99 Nasal Cannula 2.00 04/04/23 06:00 86 100/60 (75) 96 Nasal Cannula 2.00 04/04/23 05:30 83 17 104/51 (79) 98 Nasal Cannula 2.00 04/04/23 05:00 84 22 101/58 (78) 95 Nasal Cannula 2.00 04/04/23 04:30 84 10 117/60 (96) 90 Nasal Cannula 2.00 04/04/23 04:00 82 25 110/65 (84) 100 Nasal Cannula 2.00 04/04/23 04:00 100 Nasal Cannula 2.00 04/04/23 03:45 75 14 85/47 (60) 100 Nasal Cannula 2.00 04/04/23 03:30 75 15 86/49 (62) 100 Nasal Cannula 2.00 04/04/23 03:15 79 22 98/50 (71) 100 Nasal Cannula 2.00 04/04/23 03:00 92 29 109/65 (83) 100 Nasal Cannula 2.00 04/04/23 02:45 86 8 95/49 (73) 100 Nasal Cannula 2.00 04/04/23 02:30 75 15 85/47 (66) 100 Nasal Cannula 2.00 04/04/23 02:22 100 Nasal Cannula 2.00 04/04/23 02:15 85 10 83/45 (59) 100 Nasal Cannula 2.00 04/04/23 02:00 87 14 100/58 (78) 100 Nasal Cannula 2.00 04/04/23 01:45 92 25 115/75 (96) 100 Nasal Cannula 2.00 04/04/23 01:30 76 14 92/51 (74) 100 Nasal Cannula 2.00 04/04/23 01:15 79 15 101/51 (71) 100 Nasal Cannula 2.00 04/04/23 01:00 80 04/04/23 01:00 78 10 102/56 (71) 100 Nasal Cannula 2.00 04/04/23 00:45 84 9 106/65 (79) 100 Nasal Cannula 2.00 04/04/23 00:30 84 23 117/64 (86) 100 Nasal Cannula 2.00 04/04/23 00:15 98 11 112/76 (84) 99 Nasal Cannula 2.00 04/04/23 00:00 91 26 100/48 (66) 96 Nasal Cannula 2.00 04/03/23 23:59 100 Nasal Cannula 2.00 04/03/23 23:45 110 26 116/55 (83) 95 Nasal Cannula 2.00 04/03/23 23:34 92 15 89/48 (62) 96 Nasal Cannula 2.00 04/03/23 23:30 94 33 87/45 (65) 96 Nasal Cannula 2.00 04/03/23 23:20 110 96 28 04/03/23 23:19 Nasal Cannula 2.00 04/03/23 23:15 93 13 95/49 (68) 95 Nasal Cannula 2.00 04/03/23 23:00 98 19 105/53 (76) 96 Nasal Cannula 2.00 04/03/23 22:45 100 21 103/60 (78) 95 Nasal Cannula 2.00 04/03/23 22:34 92 04/03/23 22:30 96 19 103/58 (74) 99 Nasal Cannula 2.00 04/03/23 22:29 96 Nasal Cannula 2.00 04/03/23 22:15 100 26 112/53 (81) Nasal Cannula 2.00 04/03/23 22:04 110 04/03/23 22:02 106 110/53 (69) Nasal Cannula 2.00 04/03/23 21:10 36.8 101 18 106/82 95 Nasal Cannula 2.00 04/03/23 20:00 116 125/56 (79) 04/03/23 19:45 166 118/66 04/03/23 19:44 163 118/66 04/03/23 19:21 36.5 128 16 110/53 (72) 94 Nasal Cannula 2.00 04/03/23 19:10 37.3 90 16 130/65 (86) 96 Room Air I & O 04/04/23 07:00 Intake Total 4200 ml Balance 4200 ml Height & Weight Height: 5'3.00" Weight: 211lbs. 0.0oz. 95.730433tw; 24.42 BMI Method: General Appearance: No Apparent Distress, Chronically ill HEENT: PERRL/EOMI, Normal ENT Inspection, Pharynx Normal Neck: Full Range of Motion, Normal Inspection, Non Tender, Supple Respiratory: Chest Non Tender, Lungs Clear, Normal Breath Sounds, No Accessory Muscle Use, No Respiratory Distress Cardiovascular: Normal Peripheral Pulses, Irregularly Irregular Capillary Refill: Less Than 3 Seconds Extremity: Normal Capillary Refill, Normal Range of Motion, Non Tender, No Calf Tenderness, Pedal Edema Neurologic/Psychiatric: Alert, Oriented x3, No Motor/Sensory Deficits, Normal Mood/Affect Skin: Normal Color, Warm/Dry Results Lab Laboratory Tests 04/03/23 19:25 04/04/23 03:52 Assessment/Plan Assessment/Plan 1 MITESH BAKER MD Apr 04, 2023 09:34
--- NOTE | 2023-04-04 11:15 | Consultation-Cardiology ---
HPI-Cardiology Cardiology Consultation Date of Consultation 04/04/23 Date of Admission Time Seen by Provider: 11:10 Indication: Atrial fibrillation HPI 78-year-old lady with history of coronary artery disease, CABG, hypertension hyperlipidemia in addition to COPD. Patient has a chronic cough. Patient was admitted for palpitation and generalized weakness, noted to be in atrial fibrillation with rapid ventricular response. She denied any chest pain. She was started on Cardizem drip and she converted overnight to sinus rhythm Still having some cough, reporting mild pedal edema. Home Medications & Allergies Allergies: Coded Allergies: No Known Drug Allergies (Verified , 04/03/23) Home Medication List Reviewed: Yes [id number] Hx Patient Social History Marital Status: Employed/Student: retired Smoking Status: Current Everyday Smoker Recent Hopitalizations: No Alcohol Use?: No Past Medical History Discussed below Family Medical History Significant Family History: Heart Disease, Hypertension Review of Systems-General Review of Systems Constitutional: fever, malaise, weakness EENTM: no symptoms reported Respiratory: see HPI, cough Cardiovascular: no symptoms reported, see HPI, palpitations Gastrointestinal: see HPI Genitourinary: no symptoms reported Musculoskeletal: no symptoms reported Skin: no symptoms reported Psychiatric/Neurological: No Symptoms Reported Reviewed Test Results Reviewed Test Results Lab Laboratory Tests Test 04/03/23 19:25 04/03/23 23:54 04/04/23 03:52 Range/Units White Blood Count 6.2 4.6 4.3-11.0 10^3/uL Red Blood Count 3.43 L 2.79 L 3.80-5.11 10^6/uL Hemoglobin 10.0 L 8.3 L 11.5-16.0 g/dL Hematocrit 33 L 26 L 35-52 % Mean Corpuscular Volume 96 92 80-99 fL Mean Corpuscular Hemoglobin 29 30 25-34 pg Mean Corpuscular Hemoglobin Concent 31 L 32 32-36 g/dL Red Cell Distribution Width 18.3 H 18.0 H 10.0-14.5 % Platelet Count 275 226 130-400 10^3/uL Mean Platelet Volume 10.2 10.5 9.0-12.2 fL Immature Granulocyte % (Auto) 0 0 % Neutrophils (%) (Auto) 56 58 42-75 % Lymphocytes (%) (Auto) 36 34 12-44 % Monocytes (%) (Auto) 8 8 0-12 % Eosinophils (%) (Auto) 0 0 0-10 % Basophils (%) (Auto) 0 0 0-10 % Neutrophils # (Auto) 3.5 2.6 1.8-7.8 10^3/uL Lymphocytes # (Auto) 2.2 1.5 1.0-4.0 10^3/uL Monocytes # (Auto) 0.5 0.4 0.0-1.0 10^3/uL Eosinophils # (Auto) 0.0 0.0 0.0-0.3 10^3/uL Basophils # (Auto) 0.0 0.0 0.0-0.1 10^3/uL Immature Granulocyte # (Auto) 0.0 0.0 0.0-0.1 10^3/uL Prothrombin Time 16.8 H 12.2-14.7 SEC INR Comment 1.3 0.8-1.4 Activated Partial Thromboplast Time 36 H 24-35 SEC Sodium Level 133 L 133 L 135-145 MMOL/L Potassium Level 2.9 L 3.1 L 3.6-5.0 MMOL/L Chloride Level 96 L 99 98-107 MMOL/L Carbon Dioxide Level 30 30 21-32 MMOL/L Anion Gap 7 4 L 5-14 MMOL/L Blood Urea Nitrogen 13 11 7-18 MG/DL Creatinine 0.70 0.61 0.60-1.30 MG/DL Estimat Glomerular Filtration Rate 89 92 BUN/Creatinine Ratio 19 18 Glucose Level 90 88 70-105 MG/DL Lactic Acid Level 1.69 0.50-2.00 MMOL/L Calcium Level 7.0 L 6.2 L 8.5-10.1 MG/DL Corrected Calcium 9.2 8.6 8.5-10.1 MG/DL Total Bilirubin 0.3 0.2 0.1-1.0 MG/DL Aspartate Amino Transf (AST/SGOT) 8 7 5-34 U/L Alanine Aminotransferase (ALT/SGPT) 10 9 0-55 U/L Alkaline Phosphatase 131 88 40-136 U/L Troponin I < 0.30 <0.30 NG/ML Pro-B-Type Natriuretic Peptide 1711.0 H <450.0 PG/ML Total Protein 4.7 L 3.3 L 6.4-8.2 GM/DL Albumin 1.2 L 1.0 L 3.2-4.5 GM/DL Influenza Type A (RT-PCR) Not Detected Not Detecte Influenza Type B (RT-PCR) Not Detected Not Detecte SARS-CoV-2 RNA (RT-PCR) Not Detected Not Detecte Magnesium Level 1.7 2.4 1.6-2.4 MG/DL Phosphorus Level 2.3 2.3-4.7 MG/DL Physical Exam Physical Exam Vital Signs Vital Signs - First Documented 04/03/23 04/03/23 04/03/23 19:10 19:21 23:20 Temp 37.3 Pulse 90 Resp 16 B/P (MAP) 130/65 (86) Pulse Ox 96 O2 Delivery Room Air O2 Flow Rate 2.00 FiO2 28 Capillary Refill : Less Than 3 Seconds Height, Weight, BMI Height: 5'3.00" Weight: 211lbs. 0.0oz. 95.249070ru; 24.42 BMI Method: General Appearance: No Apparent Distress, Chronically ill Eyes: Bilateral Eye Normal Inspection, Bilateral Eye PERRL HEENT: PERRL/EOMI, Normal ENT Inspection, Pharynx Normal Neck: Full Range of Motion, Normal Inspection, Non Tender, Supple Respiratory: Chest Non Tender, Lungs Clear, Normal Breath Sounds, No Accessory Muscle Use, No Respiratory Distress Cardiovascular: Regular Rate, Rhythm, No JVD, No Murmur, Normal Peripheral Pulses, Systolic Murmur Gastrointestinal: Normal Bowel Sounds, Non Tender, Soft; No Distended, No Guarding Back: Normal Inspection, No CVA Tenderness Extremity: Normal Capillary Refill, Normal Range of Motion, Non Tender, No Calf Tenderness, Pedal Edema Neurologic/Psychiatric: Alert, Oriented x3, No Motor/Sensory Deficits, Normal Mood/Affect Skin: Normal Color, Warm/Dry A/P-Cardiology Admission Diagnosis Paroxysmal atrial fibrillation Hypokalemia Coronary artery disease Hypertension Assessment/Plan Paroxysmal atrial fibrillation with rapid ventricular response Converted on Cardizem drip to sinus rhythm Currently borderline hypotensive We will stop the Cardizem drip, start Eliquis and Multaq. Correct hypokalemia which could be participating in her atrial fibrillation Echocardiogram of 12-29-21 showed LVEF 55-60%. 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 She has been evaluated by various surgeons, including Dr. Leong at [facility] in [place], [place], and has been advised to avoid further surgery, she states Sleep apnea for which she is to be on C-PAP therapy, but she has been noncompliant - follows with Dr. Chavez Coronary artery disease - with history of left internal mammary artery graft to left anterior descending arteryin December 2007 after she had presented with non-ST elevation myocardial inf arction. Surgery was carried out by Dr. Phillips in [place], [place]. - Myocardial perfusion imaging was last carried out in March 2010 and it did not show any significant myocardial ischemia or infarction and left ventricular ejection fraction was calculated to be 74%. - Cardiac catheterization of 06/22/11 showed that the left internal mammary artery graft to distal left anterior descending artery was widely patent. The patient does have proximal left anterior descending artery disease which also subserves a fairly large first diagonal branch, which was not bypassed. However, the distal left anterior descending artery is well protected with the internal mammary artery graft and the patient is currently not reporting angina - MPI of December 2015 showed no evidence of significant myocardial ischemia or infarction. LVEFof 78%6. Echo of April 2012 showed LVEF 55-60% and PASP 35-40. Hypertension Currently borderline hypotensive, monitor blood pressure Mild peripheral arterial disease on angiography of November [address] Mcginnis. - Leg arterial Doppler of May 2011 showed mild diffuse atherosclerotic disease. There was no evidence of abdominal aortic aneurysm or dissection. Hyperlipidemia - managed by PCP Chronic obstructive pulmonary disease - due to chronic tobaccoism. Mild carotid arterial disease per ultrasonography of September 2013. IRENA FOSS MD Apr 04, 2023 11:15
[2023-04-04 11:47] LABS: BACTERIA,URINE LARGE /HPF; BILIRUBIN,URINE NEGATIVE (NEGATIVE); CLARITY,URINE CLEAR; COLOR,URINE YELLOW; GLUCOSE, URINE (UA) NEGATIVE (NEGATIVE); KETONES,URINE TRACE (NEGATIVE); LEUKOCYTE ESTERASE ,URINE 1+ (NEGATIVE); NITRITE,URINE POSITIVE (NEGATIVE); PH,URINE 5.5 (5-9); PROTEIN,URINE 1+ (NEGATIVE); RBC,URINE 0-2 /HPF; WBC,URINE 50-100 /HPF
[2023-04-04] MEDS ORDERED: FLUT16SP22 NSEACH (13:34)
--- NOTE | 2023-04-04 14:02 | Physical Therapy Progress Note ---
Therapy Progress Note Patient lying on right side in bed upon PT arrival. Patient lifts her left arm and states,"Thats all I'm moving today." She then reports she is incontinent of BM. Nurse enters the room and is informed of the situation. Patient refuses help from PT in getting cleaned up. Upon PT return patient refuses treatment stating "I'll do all the moving I need to, tomorrow when I go home, in my w/c." Nurse notified of patients refusal. Will not attempt again due to patient adamantly refusing to participate. KELL OVIEDO PT Apr 04, 2023 14:02
--- NOTE | 2023-04-04 14:25 | Occ Therapy Progress Note ---
Therapy Progress Note Patient answered interview questions and reports she lives with her ex in a 2 story house in [place], He lives upstairs with his own bathroom and she lives downstairs, they share the kitchen. He does the shopping and they split bills. She does not drive. Patient politely declines therapy at this time.She request a warm blanket and instruction to use TV remote. OT provided for patient, No charge or evaluation, OT will return tomorrow per patient request NATO TOBAR OT Apr 04, 2023 14:25
[2023-04-04] MEDS ORDERED: FLUTICASONE NASAL SPRAY (120 SPRAYS) NS PRN (16:30)
[2023-04-04] MEDS ORDERED: VANCOMYCIN 1250 MG/NS 250 ML PREMIX IV NR (17:00)
[2023-04-04] MEDS ORDERED: VANCOMYCIN INJECTION 0.1 MG in NS (IVPB) 250 ML 250 ML IV SCH (17:00)
[2023-04-04] MEDS: LOPERAMIDE 2 MG CAPSULE PO PRN ×3 (17:14→21:42)
[2023-04-04] MEDS: APIXABAN 2.5 MG TABLET PO SCH (21:42)
[2023-04-04] MEDS ORDERED: FUROSEMIDE INJECTION 40 MG/4 ML VIAL IVP ONE (22:00)
[2023-04-04 22:16] VITALS: BP 93/63
[2023-04-05] MEDS: dilTIAZem DRIP 125 MG/125 ML DRIP IV SCH ×2 (00:42→23:35)
[2023-04-05] MEDS ORDERED: ALBUMIN 5% 12.5 GM/250 ML 250 ML IV ONE (02:00)
[2023-04-05] MEDS: RT-Ipratropium/Albuterol NEB 3 ML VIAL INH SCH ×4 (02:25→21:30)
[2023-04-05 04:48] LABS: BASOPHILS % (AUTO) 0 % (0-10); EOSINOPHILS % (AUTO) 0 % (0-10); HEMATOCRIT 29 % (35-52); HEMOGLOBIN 9.4 g/dL (11.5-16.0); LYMPHOCYTES # (AUTO) 2.2 10^3/uL (1.0-4.0); LYMPHOCYTES % (AUTO) 32 % (12-44); MEAN CORPUSCULAR HEMOGLOBIN 30 pg (25-34); MEAN CORPUSCULAR HGB CONC 32 g/dL (32-36); MEAN CORPUSCULAR VOLUME 93 fL (80-99); MONOCYTES # (AUTO) 0.5 10^3/uL (0.0-1.0); MONOCYTES % (AUTO) 7 % (0-12); NEUTROPHILS # (AUTO) 4.1 10^3/uL (1.8-7.8); NEUTROPHILS % (AUTO) 60 % (42-75); PLATELET COUNT 280 10^3/uL (130-400); WHITE BLOOD COUNT 6.9 10^3/uL (4.3-11.0)
[2023-04-05 05:15] LABS: ALBUMIN 1.6 GM/DL (3.2-4.5); BILIRUBIN,TOTAL 0.3 MG/DL (0.1-1.0); CALCIUM 6.9 MG/DL (8.5-10.1); CREATININE SERUM 0.71 MG/DL (0.60-1.30); PHOSPHORUS 2.3 MG/DL (2.3-4.7); POTASSIUM 4.8 MMOL/L (3.6-5.0); TOTAL PROTEIN 4.6 GM/DL (6.4-8.2)
[2023-04-05] MEDS: MAGNESIUM 1 GM/100 ML IVPB 100 ML IV SCH (05:54)
[2023-04-05] MEDS: POTASSIUM CL 10MEQ/50ML IVPB 50 ML IV SCH (05:54)
[2023-04-05] MEDS: POTASSIUM CHLORIDE 20 MEQ TABLET PO SCH (06:00)
[2023-04-05] MEDS: CATHETER FLUSH 10 ML SYR IVP SCH ×3 (06:00→22:36)
[2023-04-05] MEDS ORDERED: NS IV 1000 ML 1,000 ML IV SCH (06:00)
[2023-04-05] MEDS: ONDANSETRON INJECTION 4 MG/2 ML (SDV) IV PRN (06:38)
--- NOTE | 2023-04-05 07:49 | Cardiology Progress Note ---
Subjective Date Seen by Provider: Apr 05, 2023 Time Seen by Provider: 07:48 Subjective/Events-last exam Patient was seen at bedside, lethargic. No new complain Focused Exam Lactate Level 04/03/23 19:25: Lactic Acid Level 1.69 Objective-Cardiology Exam Last Set of Vital Signs Vital Signs 04/03/23 04/05/23 04/05/23 23:20 06:00 07:15 Temp 35.3 Pulse 103 Resp 26 B/P (MAP) 101/67 (78) Pulse Ox 97 O2 Delivery Nasal Cannula O2 Flow Rate 4.00 FiO2 28 I&O Intake and Output 04/05/23 00:00 Intake Total 8750 ml Output Total 40 ml Balance 8710 ml Intake Oral 2550 ml IV Total 6200 ml Output Urine Total 40 ml # Voids 9 # Bowel Movements 8 General: Alert, Oriented X3, Cooperative HEENT: Atraumatic, PERRLA Neck: Supple, No JVD, No Thyromegaly Lungs: Clear to Auscultation, Normal Air Movement Heart: Regular Rate, Normal S1, Normal S2, No Murmurs Abdomen: Normal Bowel Sounds, Soft, No Tenderness, No Hepatosplenomegaly, No Masses Extremities: No Clubbing, No Cyanosis, No Edema, Normal Pulses, No Tenderness/Swelling Skin: No Rashes, No Breakdown, No Significant Lesion Neuro: Normal Gait, Normal Speech, Strength at 5/5 X4 Ext, Normal Tone, Sensation Intact Psych/Mental Status: Mental Status NL, Mood NL Results Lab Laboratory Tests 04/05/23 03:50 A/P-Cardiology Admission Diagnosis Paroxysmal atrial fibrillation Hypokalemia Coronary artery disease Hypertension Assessment/Plan Paroxysmal atrial fibrillation with rapid ventricular response Converted on Cardizem drip to sinus rhythm Currently borderline hypotensive Currently on Eliquis and Multaq Continue to monitor Echocardiogram of 12-29-21 showed LVEF 55-60%. 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 She has been evaluated by various surgeons, including Dr. Leong at [facility] in [place], [place], and has been advised to avoid further surgery, she states Sleep apnea for which she is to be on C-PAP therapy, but she has been noncompliant - follows with Dr. Chavez Coronary artery disease - with history of left internal mammary artery graft to left anterior descending arteryin December 2007 after she had presented with non-ST elevation myocardial infarction. Surgery was carried out by Dr. Phillips in [place], [place]. - Myocardial perfusion imaging was last carried out in March 2010 and it did not show any significant myocardial ischemia or infarction and left ventricular ejection fraction was calculated to be 74%. - Cardiac catheterization of 06/22/11 showed that the left internal mammary artery graft to distal left anterior descending artery was widely patent. The patient does have proximal left anterior descending artery disease which also subserves a fairly large first diagonal branch, which was not bypassed. However, the distal left anterior descending artery is well protected with the internal mammary artery graft and the patient is currently not reporting angina - MPI of December 2015 showed no evidence of significant myocardial ischemia or infarction. LVEFof 78%6. Echo of April 2012 showed LVEF 55-60% and PASP 35-40. Hypertension Currently borderline hypotensive, monitor blood pressure Mild peripheral arterial disease on angiography of November [address] Mcginnis. - Leg arterial Doppler of May 2011 showed mild diffuse atherosclerotic disease. There was no evidence of abdominal aortic aneurysm or dissection. Hyperlipidemia - managed by PCP Chronic obstructive pulmonary disease - due to chronic tobaccoism. Mild carotid arterial disease per ultrasonography of September 2013. IRENA FOSS MD Apr 05, 2023 07:49
[2023-04-05 08:53] VITALS: BP 104/68
[2023-04-05] MEDS ORDERED: LIDOCAINE UROJET 2% GEL 10 ML PKG TOP ONE (09:15)
[2023-04-05] MEDS: APIXABAN 2.5 MG TABLET PO SCH ×2 (09:30→22:36)
[2023-04-05] MEDS: ASPIRIN 81 MG CHEWABLE TABLET PO SCH (09:30)
[2023-04-05] MEDS: PANTOPRAZOLE 40 MG TABLET PO SCH (09:30)
--- NOTE | 2023-04-05 10:28 | Occ Therapy Progress Note ---
Therapy Progress Note Changes in medical respiratory status. RN request OT to hold. OT will monitor for appropriate status for evaluation NATO TOBAR OT Apr 05, 2023 10:28
[2023-04-05] MEDS: NS IV 500 ML 500 ML IV SCH ×3 (11:06→12:02)
[2023-04-05 11:23] LABS: BASOPHILS % (AUTO) 0 % (0-10); EOSINOPHILS % (AUTO) 0 % (0-10); HEMATOCRIT 30 % (35-52); HEMOGLOBIN 9.4 g/dL (11.5-16.0); LYMPHOCYTES # (AUTO) 1.2 10^3/uL (1.0-4.0); LYMPHOCYTES % (AUTO) 11 % (12-44); MEAN CORPUSCULAR HEMOGLOBIN 30 pg (25-34); MEAN CORPUSCULAR HGB CONC 32 g/dL (32-36); MEAN CORPUSCULAR VOLUME 94 fL (80-99); MEAN PLATELET VOLUME 11.1 fL (9.0-12.2); MONOCYTES # (AUTO) 0.6 10^3/uL (0.0-1.0); MONOCYTES % (AUTO) 5 % (0-12); NEUTROPHILS # (AUTO) 8.9 10^3/uL (1.8-7.8); NEUTROPHILS % (AUTO) 83 % (42-75); PLATELET COUNT 228 10^3/uL (130-400); WHITE BLOOD COUNT 10.8 10^3/uL (4.3-11.0)
--- NOTE | 2023-04-05 11:24 | Progress Note - Hospitalist ---
Subjective HPI/CC On Admission Date Seen by Provider: Apr 05, 2023 Patient is a 78-year-old female with past medical history of coronary artery disease and CABG, hypertension, asthma who presented to the emergency department due to weakness with vomiting and diarrhea. She reports her symptoms started roughly 1 week ago she finally decided to come in because she was getting lightheaded. She was found to be tachycardic in the emergency department and EKG confirmed atrial fibrillation with rapid ventricular rate. She was started on a Cardizem drip and admitted to the ICU. This morning she reports feeling a little better but is still quite weak. She would like to eat as she is not nauseous at this time. She denies any history of atrial fibrillation that she knows of but she did think she had some heart problems after her heart attack. She sees Dr. MEDINA for primary care but has not seen a optical instrument inspector does not regularly take her medications. Subjective/Events-last exam Pt reports "bad." cannot elaborate on how. Denies pain. Denies SOB. Just states she feels "bad." She is hypoxic at 78% and being placed on BiPAP. Focused Exam Lactate Level 04/05/23 20:18: Lactic Acid Level 2.46*H 04/05/23 22:23: Lactic Acid Level 2.04*H 04/06/23 00:38: Lactic Acid Level 1.86 Objective Exam Vital Signs Vital Signs Date Time Temp Pulse Resp B/P (MAP) Pulse Ox O2 Delivery O2 Flow Rate FiO2 04/07/23 08:00 High Flow N/C 4.00 04/06/23 20:00 96 04/06/23 15:49 37.1 87 16 88/59 (69) 04/03/23 23:20 28 Capillary Refill : Less Than 3 Seconds General Appearance: Chronically ill, Thin Respiratory: Decreased Breath Sounds; No Wheezing; Other (BiPAP being placed) Cardiovascular: Tachycardia (but regular) Gastrointestinal: Normal Bowel Sounds, Soft Neurologic/Psychiatric: Alert, Oriented x3 Results/Procedures Lab Patient resulted labs reviewed. Imaging: Reviewed Imaging Report Assessment/Plan Assessment and Plan Assess & Plan/Chief Complaint A fib with RVR CAD HTN Remains in sinus Cardiology consulted, appreciate recs Eliquis for stroke ppx Echo with EF of 70% Acute hypoxic respiratory failure On BiPAP this AM CXR pending ABG pending TeleICU consulted, appreciate recs Debility Gastroentertis C diff negative Blood cultures with staph- Vanc started yesterday await sensitivities PT/OT Social Work consulted, appreciate recs Will likely need placement upon DC- on hold for now due to respiratory distress DVT ppx: Eliquis Diagnosis/Problems Diagnosis/Problems (1) Atrial fibrillation with RVR Status: Acute (2) Hypokalemia (3) CAD (coronary artery disease) (4) HTN (hypertension) LUKE BYERS MD Apr 05, 2023 11:24
--- NOTE | 2023-04-05 11:26 | Tele-ICU Progress Note ---
Progress Note (Tele-ICU Physician , Progress Note) Service provided via interactive audio and video telecommunications E-CARE system to a patient admitted to ICU bed in [facility]. Patient is seen today due to persistent need of ICU care Available chart/ vitals / labs / Images reviewed Video assessment done using teleICU camera, rest of exam as per RN Discussed with RN Hospital course: (04/03) 78 y/o F- hx of CAD s/p CABG, HTN, HLD and ?COPD who presented to ED with chronic cough/ near syncope and fever X 1 week. Admitted to MICU for afib with RVR. No etiology of Afib. Was placed on cardizem gtt now in sinus. 04/05: Overnight noted to have soft BP with MAPs of 50s to 60s. She was briefly placed o and then this morning with sudden increase in O2 needs. Was previously on 2L NC now requiring BiPAP. Also with acute hypotension, likely from AM metoprolol. Cards following, appreciate recs. A/P Paroxysmal afib with RVR: Unclear etiology, converted on cardizem gtt now in [facility]. -Will cont on Eliquis and Multaq. -Would hold PM dose of metoprolol given hypotension with MAPs in 40s. -Last TTE 01/06: EV 55-60%. Will repeat given new afib and hypotension. Hypoxia: Noted to have drop in Sp02 -will obtain CXR to r/o pnx and baseline ABG -Will switch from BIPAP to HFNC and wean as tolerated Hypotension: Pt with low MAPs overnight and now with acute drop in BP. Likely 2/2 metoprolol. -Will give IVF bolus. Cont to monitor. Avoid BiPAP (peep can worsen hypotension) -Hold next dose of metoprolol and resume when HD stable Hypokalemia: Repleted CAD: s/p CABG: -Managed by cards. will check troponin, not done on admission COPD: Per chart, no documented PFTs. Will cont on nocturnal CPAP Anemia of chronic disease: Stable, no bleeding Lines : Periph (Central Line Necessity Reviewed) David: EZEKIEL OG: Nutrition: PO Analgesia: Anxiety/ delirium I am remotely monitoring this patient from another state. I am unable to do the bedside exam, and history/physical and pertinent information is taken from other notes in the computer and bedside staff. Focused Exam Lactate Level 04/03/23 19:25: Lactic Acid Level 1.69 04/05/23 11:10: Height, Weight, BMI Height: 5'3.00" Weight: 211lbs. 0.0oz. 95.577291si; 24.42 BMI Method: Lactic Acid Level Laboratory Tests Test 04/05/23 11:10 VIOLETTA DE LA VEGA MD Apr 05, 2023 11:26
[2023-04-05 11:29] LABS: POTASSIUM 4.7 MMOL/L (3.6-5.0)
[2023-04-05 11:30] LABS: CALCIUM 6.7 MG/DL (8.5-10.1)
[2023-04-05 11:34] LABS: CREATININE SERUM 0.73 MG/DL (0.60-1.30)
--- NOTE | 2023-04-05 11:34 | Diagnostic Imaging Report ---
INDICATION: Sudden onset shortness of breath. TECHNIQUE: Single view chest at 10:42 AM. CORRELATION STUDY: 04/03/2023. FINDINGS: Patient is rotated on this study. Given this, the heart size and pulmonary vasculature appear increased and more prominent from prior. Prominent interstitial markings. Opacities in the lung bases favor edema along with small effusions. Post operative left shoulder arthroplasty. Benign appearing sclerotic foci in the right humeral head. IMPRESSION: Development of what appears to be at least moderate severity edema since prior. This includes pulmonary vascular congestion and perihilar and interstitial edema along with small effusions. Dictated by: Dictated on workstation # [id number]
[2023-04-05] MEDS ORDERED: FUROSEMIDE INJECTION 40 MG/4 ML VIAL IVP NR (11:45)
[2023-04-05 12:22] LABS: ANISOCYTOSIS SLIGHT; BASOPHILS % (MANUAL) 0 %; EOSINOPHILS % (MANUAL) 6 %; LYMPHOCYTES % (MANUAL) 5 %; METAMYELOCYTES % 1 %; MONOCYTES % (MANUAL) 10 %; NEUTROPHILS % (MANUAL) 78 %
[2023-04-05] MEDS ORDERED: PIPERACILLIN/Tazobactam 4.5 GM in NS (IVPB) 100 ML 100 ML IV NR (12:45)
[2023-04-05 13:44] LABS: PROTHROMBIN TIME PATIENT 22.4 SEC (12.2-14.7)
[2023-04-05] MEDS ORDERED: VANCOMYCIN 1 GM/NS 250 ML IVPB IV SCH ×2 (17:00)
[2023-04-05] MEDS: PIPERACILLIN/Tazobactam 4.5 GM in NS (IVPB) 100 ML 100 ML IV SCH (19:16)
[2023-04-05 21:30] VITALS: BP 90/68
[2023-04-05] MEDS ORDERED: NOREPINEPHRINE 8 MG/250 ML 250 ML IV SCH (22:00)
[2023-04-06] MEDS: ONDANSETRON INJECTION 4 MG/2 ML (SDV) IV PRN ×2 (01:31→05:33)
[2023-04-06] MEDS ORDERED: dilTIAZem DRIP PRE-MIX 125 ML IV SCH (01:45)
[2023-04-06] MEDS: dilTIAZem DRIP 125 MG/125 ML DRIP IV SCH (01:55)
[2023-04-06] MEDS: RT-Ipratropium/Albuterol NEB 3 ML VIAL INH SCH (01:58)
[2023-04-06] MEDS: PIPERACILLIN/Tazobactam 4.5 GM in NS (IVPB) 100 ML 100 ML IV SCH (04:07)
[2023-04-06] MEDS: NS IV 500 ML 500 ML IV SCH (04:08)
[2023-04-06 04:56] LABS: BASOPHILS % (AUTO) 0 % (0-10); EOSINOPHILS % (AUTO) 0 % (0-10); HEMATOCRIT 32 % (35-52); LYMPHOCYTES # (AUTO) 1.4 10^3/uL (1.0-4.0); LYMPHOCYTES % (AUTO) 13 % (12-44); MEAN CORPUSCULAR HEMOGLOBIN 30 pg (25-34); MEAN CORPUSCULAR HGB CONC 32 g/dL (32-36); MEAN CORPUSCULAR VOLUME 94 fL (80-99); MEAN PLATELET VOLUME 11.4 fL (9.0-12.2); MONOCYTES # (AUTO) 0.5 10^3/uL (0.0-1.0); MONOCYTES % (AUTO) 5 % (0-12); NEUTROPHILS # (AUTO) 8.3 10^3/uL (1.8-7.8); NEUTROPHILS % (AUTO) 81 % (42-75); PLATELET COUNT 306 10^3/uL (130-400); WHITE BLOOD COUNT 10.3 10^3/uL (4.3-11.0)
[2023-04-06 05:24] LABS: ALBUMIN 1.6 GM/DL (3.2-4.5); BILIRUBIN,TOTAL 0.4 MG/DL (0.1-1.0); CALCIUM 7.3 MG/DL (8.5-10.1); CREATININE SERUM 0.85 MG/DL (0.60-1.30); PHOSPHORUS 3.5 MG/DL (2.3-4.7); POTASSIUM 4.7 MMOL/L (3.6-5.0); TOTAL PROTEIN 4.8 GM/DL (6.4-8.2)
[2023-04-06] MEDS: POTASSIUM CL 10MEQ/50ML IVPB 50 ML IV SCH (06:08)
[2023-04-06] MEDS: MAGNESIUM 1 GM/100 ML IVPB 100 ML IV SCH (06:09)
[2023-04-06] MEDS: POTASSIUM CHLORIDE 20 MEQ TABLET PO SCH (06:09)
[2023-04-06] MEDS: CATHETER FLUSH 10 ML SYR IVP SCH (06:09)
[2023-04-06] MEDS ORDERED: ONDANSETRON INJECTION 4 MG/2 ML (SDV) IVP PRN (06:30)
[2023-04-06] MEDS ORDERED: PROMETHAZINE INJ 25 MG/ML VIAL IVP PRN (06:30)
[2023-04-06] MEDS ORDERED: ARTIFICAL TEARS Ophth solution 0.4 ML UNIT DOSE OU PRN (06:30)
[2023-04-06] MEDS ORDERED: BISACODYL 10 MG SUPPOSITORY PR PRN (06:30)
[2023-04-06] MEDS ORDERED: GLYCOPYRROLATE INJ 0.2 MG/ML 2 ML VIAL IV PRN (06:30)
[2023-04-06] MEDS ORDERED: ATROPINE 1% OPHTHALMIC SOLN 2 ML SL PRN (06:30)
[2023-04-06] MEDS ORDERED: LORazepam 1 MG TABLET SL PRN (06:30)
[2023-04-06] MEDS ORDERED: RT-Ipratropium/Albuterol NEB 3 ML VIAL INH PRN (06:30)
[2023-04-06] MEDS ORDERED: ACETAMINOPHEN 650 MG SUPPOSITORY PR PRN (06:30)
[2023-04-06] MEDS ORDERED: SCOPOLAMINE 1.5 MG PATCH TOP SCH (06:30)
[2023-04-06] MEDS: morphine INJ 4 MG/ML 1 ML (VIAL/SYRINGE) IV PRN ×3 (09:05→19:51)
[2023-04-06] MEDS: APIXABAN 2.5 MG TABLET PO SCH (09:49)
[2023-04-06] MEDS: ASPIRIN 81 MG CHEWABLE TABLET PO SCH (09:50)
[2023-04-06] MEDS: PANTOPRAZOLE 40 MG TABLET PO SCH (09:50)
[2023-04-06 15:49] VITALS: BP 88/59
[2023-04-06] MEDS ORDERED: TROUGH ORDER-PHARMACY XX ONE (16:00)
--- NOTE | 2023-04-06 19:07 | Physician Query-Final Dx ---
MADDIE RENDON 04/06/23 1907: Final Diagnosis Give Final Diagnosis Please give Final Diagnosis The medical record reflects the following clinical scenario: The patient, in the setting of History/Risk factors, Admitted with At. Fib with RVR and gastroenteritis Clinical Findings admission vital signs/labs: HR 90, RR 16, BP 130/65, SpO2 96%, T 37.3, WBC 6.2, lactic acid 1.69 then 2.51 then 3.22, blood culture x 2 positive for Staphylococcus haemolyticus on both and Staphylococcus epidermidis on one Treatment Diltiazem bolus and drip, Cefepime IV, Normal saline bolus 250 mls, Vancomycin, Lasix IV, albumin IV, normal saline 1 L, Question: Do you agree with the impression of Sepsis per Dr. Melinda Carnes sepsis? Yes; will document sepsis likely present on admission in the Progress Notes No; will continue current documentation in the Progress Notes Other; will document explanation of clinical findings Clinically undetermined; no explanation for clinical findings Please clarify and document your clinical opinion in the Progress Notes and Discharge Summary including the definitive and/or presumptive diagnosis, (suspected or probable), related to the above clinical findings. Please include clinical findings supporting your diagnosis. In responding to this query, please exercise your independent professional judgment. The purpose of this communication is to more accurately reflect the complexity of your patients condition. The fact that a question is asked does not imply that any particular answer is desired or expected. Thank you for timely response to this clarification. Maddie Rendon, MSN, RN Clinical [facility] [employer] [phone] LUKE BYERS MD 04/07/23 1611: Final Diagnosis Give Final Diagnosis Yes; will document sepsis likely present on admission in the Progress Notes MADDIE RENDON Apr 06, 2023 19:07 LUKE BYERS MD Apr 07, 2023 16:11
[2023-04-06] MEDS: SALIVA SUBSTITUTE 60 ML SPRAY MM PRN (20:02)
--- NOTE | 2023-04-06 20:53 | Progress Note - Hospitalist ---
Subjective HPI/CC On Admission Patient is a 78-year-old female with past medical history of coronary artery disease and CABG, hypertension, asthma who presented to the emergency department due to weakness with vomiting and diarrhea. She reports her symptoms started roughly 1 week ago she finally decided to come in because she was getting lightheaded. She was found to be tachycardic in the emergency department and EKG confirmed atrial fibrillation with rapid ventricular rate. She was started on a Cardizem drip and admitted to the ICU. This morning she reports feeling a little better but is still quite weak. She would like to eat as she is not nauseous at this time. She denies any history of atrial fibrillation that she knows of but she did think she had some heart problems after her heart attack. She sees Dr. MEDINA for primary care but has not seen a boiler operator does not regularly take her medications. Subjective/Events-last exam Pt transitioned to comfort care this morning. She declined going back on BiPAP> Family was at bedside and patient decided and informed them of her wishes regarding to go comfort care and also gave them her wishes regarding her . She was transitioned to comfort care only and was resting comfortably in bed when I saw her this morning. Focused Exam Lactate Level 04/05/23 20:18: Lactic Acid Level 2.46*H 04/05/23 22:23: Lactic Acid Level 2.04*H 04/06/23 00:38: Lactic Acid Level 1.86 Objective Exam Vital Signs Vital Signs Date Time Temp Pulse Resp B/P (MAP) Pulse Ox O2 Delivery O2 Flow Rate FiO2 04/06/23 15:49 37.1 87 16 88/59 (69) 96 High Flow N/C 4.00 04/03/23 23:20 28 Capillary Refill : Less Than 3 Seconds General Appearance: No Apparent Distress, Chronically ill Respiratory: No Accessory Muscle Use, Decreased Breath Sounds Cardiovascular: Regular Rate, Rhythm Results/Procedures Lab Laboratory Tests 04/06/23 04:00 Patient resulted labs reviewed. Imaging: Reviewed Imaging Report Assessment/Plan Assessment and Plan Assess & Plan/Chief Complaint A fib with RVR CAD HT Acute hypoxic respiratory failure Debility Gastroentertis Comfort care only Protocol ordered Diagnosis/Problems Diagnosis/Problems (1) Atrial fibrillation with RVR Status: Acute (2) Hypokalemia (3) CAD (coronary artery disease) (4) HTN (hypertension) ZEESHAN,LUKE M MD Apr 06, 2023 20:53
[2023-04-07] MEDS: SALIVA SUBSTITUTE 60 ML SPRAY MM PRN (04:30)
[2023-04-07] MEDS: morphine INJ 4 MG/ML 1 ML (VIAL/SYRINGE) IV PRN (05:31)
--- NOTE | 2023-04-07 14:23 | Progress Note - Hospitalist ---
Subjective HPI/CC On Admission Date Seen by Provider: Apr 07, 2023 Patient is a 78-year-old female with past medical history of coronary artery disease and CABG, hypertension, asthma who presented to the emergency department due to weakness with vomiting and diarrhea. She reports her symptoms started roughly 1 week ago she finally decided to come in because she was getting lightheaded. She was found to be tachycardic in the emergency department and EKG confirmed atrial fibrillation with rapid ventricular rate. She was started on a Cardizem drip and admitted to the ICU. This morning she reports feeling a little better but is still quite weak. She would like to eat as she is not nauseous at this time. She denies any history of atrial fibrillation that she knows of but she did think she had some heart problems after her heart attack. She sees Dr. 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 Subjective/Events-last exam Pt resting peacefully. No responsive. Family are worried she is lingering but they do not think she is suffering. They report she is seeing people and asked her daughter to call her sister and tell her that "it's close." Focused Exam Lactate Level 04/05/23 20:18: Lactic Acid Level 2.46*H 04/05/23 22:23: Lactic Acid Level 2.04*H 04/06/23 00:38: Lactic Acid Level 1.86 Objective Exam Vital Signs Vital Signs Date Time Temp Pulse Resp B/P (MAP) Pulse Ox O2 Delivery O2 Flow Rate FiO2 04/07/23 08:00 High Flow N/C 4.00 04/06/23 20:00 96 04/06/23 15:49 37.1 87 16 88/59 (69) 04/03/23 23:20 28 Capillary Refill : Less Than 3 Seconds General Appearance: No Apparent Distress, Chronically ill Respiratory: No Accessory Muscle Use Cardiovascular: Regular Rate, Rhythm, No Murmur Neurologic/Psychiatric: Other (nonresponsive) Results/Procedures Lab Patient resulted labs reviewed. Imaging: Reviewed Imaging Report Assessment/Plan Assessment and Plan Assess & Plan/Chief Complaint A fib with RVR CAD HT Acute hypoxic respiratory failure Debility Gastroentertis Comfort care only Protocol ordered Palliative care consulted, appreciate recs Diagnosis/Problems Diagnosis/Problems (1) Atrial fibrillation with RVR Status: Acute (2) Hypokalemia (3) CAD (coronary artery disease) (4) HTN (hypertension) LUKE BYERS MD Apr 07, 2023 14:23
[2023-04-07] MEDS ORDERED: TROUGH ORDER-PHARMACY XX NR (16:00)
== END 2023-04-07 17:50 | disposition expired | DRG 871 ==
LOC: EDUNIT# 19:10 → ER FS 19:14 → ICU 21:51 → 4TH 04-06 15:37
PROVIDERS: ADMIT Internal Medicine; ATTEND Family Medicine
PROC: 5A09357 Assistance with Respiratory Ventilation, Less than 24 Consecutive Hours, Continuous Positive Airway Pressure (ICD-10-PCS; principal; 2023-04-05)
PROC: 5A0935A Assistance with Respiratory Ventilation, Less than 24 Consecutive Hours, High Flow/Velocity Cannula (ICD-10-PCS; 2023-04-05)
DX: A41.9 Sepsis, unspecified organism (principal); J96.01 Acute respiratory failure with hypoxia; E87.1 Hypo-osmolality and hyponatremia; I48.0 Paroxysmal atrial fibrillation; E87.6 Hypokalemia; I25.10 Atherosclerotic heart disease of native coronary artery without angina pectoris; I10 Essential (primary) hypertension; R53.81 Other malaise; K52.9 Noninfective gastroenteritis and colitis, unspecified; Z51.5 Encounter for palliative care; Z66 Do not resuscitate; Z95.1 Presence of aortocoronary bypass graft; E78.5 Hyperlipidemia, unspecified; J44.9 Chronic obstructive pulmonary disease, unspecified; I25.2 Old myocardial infarction; Z20.822 Contact with and (suspected) exposure to COVID-19; M19.90 Unspecified osteoarthritis, unspecified site; F17.210 Nicotine dependence, cigarettes, uncomplicated; D63.8 Anemia in other chronic diseases classified elsewhere; I73.9 Peripheral vascular disease, unspecified; I77.9 Disorder of arteries and arterioles, unspecified; T45.8X5A Adverse effect of other primarily systemic and hematological agents, initial encounter
CPT/HCPCS: 36415; 71045; 80048; 80053; 80061; 81000; 83605; 83735; 83880; 84100; 84443; 84484; 85007; 85025; 85027; 85610; 85730; 87015; 87040; 87045; 87046; 87077; 87081; 87088; 87186; 87324; 87328; 87329; 87449; 87636; 87899; 93005; 93306; 94640; 94660